=== PATIENT | female | born 1950 | race Two or more races ===

== ENCOUNTER 2017-10-02 11:28 | Inpatient (IN) | payer MEDICARE, BC ==
[~2017-10-02] VITALS: Ht 154.9 cm; Wt 59.9 kg
[~2017-10-02 11:28] MED LIST: ATEN25TA PO; CARB-103 PO; CLOM75CA2 PO; CLON0.5T23 PO; IBUP-1957 PO; LEVO25TA9 PO; LEVO75TA7 PO; METF750T2 PO; METH-359 PO
[2017-10-02] MEDS ORDERED: IV NORMAL SALINE 1000 ML BAG IV ONE (12:00)
[2017-10-02] MEDS ORDERED: ONDANSETRON 4 MG/2 ML VIAL IV ONE (12:15)
[2017-10-02] MEDS ORDERED: ONDANSETRON 4 MG/2 ML VIAL ONE (12:15)
[2017-10-02] MEDS ORDERED: METF500T6 PO ×2 (12:56)
[2017-10-02 13:08] LABS: BASOPHILS % (AUTO) 0.2 % (0.0-2.0); EOSINOPHILS # (AUTO) 0.1 K/uL (0.0-0.7); EOSINOPHILS % (AUTO) 1.2 % (0.0-7.0); HEMATOCRIT 30.3 % (31.2-41.9); HEMOGLOBIN 10.1 g/dL (10.9-14.3); LYMPHOCYTES # (AUTO) 0.9 K/uL (20.0-40.0); LYMPHOCYTES % (AUTO) 10.6 % (20.5-51.5); MEAN CORPUSCULAR HEMOGLOBIN 30.7 uug (24.7-32.8); MEAN CORPUSCULAR HGB CONC 33 g/dL (32.3-35.6); MEAN CORPUSCULAR VOLUME 92.4 fL (75.5-95.3); MONOCYTES # (AUTO) 0.6 K/uL (2.0-10.0); MONOCYTES % (AUTO) 7.2 % (0.0-11.0); NEUTROPHILS # (AUTO) 6.8 K/uL (1.8-8.9); NEUTROPHILS % (AUTO) 80.8 % (38.5-71.5); PLATELET COUNT (AUTO) 217 K/uL (179-408); RED BLOOD CELL COUNT(AUTO) 3.28 MIL/uL (3.63-4.92); WHITE BLOOD COUNT (AUTO) 8.5 K/uL (3.8-11.8)
[2017-10-02 13:22] LABS: CREATININE 1.3 mg/dL (0.6-1.3); POTASSIUM 4.2 mmol/L (3.5-5.1)
[2017-10-02 13:35] LABS: BILIRUBIN,DIRECT 0.1 mg/dL (0.0-0.2); BILIRUBIN,TOTAL 0.2 mg/dL (0.2-1.0)
[2017-10-02 13:59] LABS: THYROID STIMULATING HORMONE 0.551 mIU/mL (0.358-3.740)
[2017-10-02 14:24] LABS: *BILIRUBIN,URIN NEGATIVE (NEGATIVE); *BLOOD, URINE NEGATIVE (NEGATIVE); *CLARITY,URINE CLEAR (CLEAR); *COLOR,URINE YELLOW (YELLOW); *KETONES,URINE NEGATIVE (NEGATIVE); *PROTEIN,URINE NEGATIVE (NEGATIVE); *UROBILINOGEN,URINE 0.2 E.U./dl (NORMAL); LEUKOCYTE ESTERASE ,URINE TRACE (NEGATIVE); NITRITE, URINE NEGATIVE (NEGATIVE); UGLUCOSE NEGATIVE (NEGATIVE)
[2017-10-02 14:39] LABS: BACTERIA,URINE FEW /HPF (NONE SEEN); RBC,URINE 0-3 /HPF (0-3); SQUAMOUS EPITHELIAL CELL,UR MODERATE /HPF (NONE SEEN); WBC,URINE 0-3 /HPF (0-3)
[2017-10-02] MEDS ORDERED: LITH150C PO (14:57)
[2017-10-02] MEDS ORDERED: CARB200T PO (14:57)
[2017-10-02] MEDS ORDERED: METH10TA4 PO (14:57)
[2017-10-02] MEDS ORDERED: GUAN1TAB2 PO (14:57)
[2017-10-02] MEDS ORDERED: ASPIRIN 325 MG TABLET PO ONE (15:00)
[2017-10-02] MEDS ORDERED: ASPIRIN 325 MG TABLET ONE (15:59)
[2017-10-02 16:59] VITALS: BP 109/69
[2017-10-02] MEDS ORDERED: MAGNESIUM HYDROXIDE 30 ML LIQUID UDC PO PRN (19:45)
[2017-10-02] MEDS ORDERED: DEXTROSE 50% 50 ML DISP.SYRIN IV PRN (19:45)
[2017-10-02] MEDS ORDERED: ONDANSETRON 4 MG/2 ML VIAL IV PRN (19:45)
[2017-10-02] MEDS ORDERED: MORPHINE SULFATE 4 MG/1 ML DISP.SYRIN IV PRN (19:45)
[2017-10-02] MEDS ORDERED: ACETAMINOPHEN 325 MG TABLET PO PRN (19:45)
[2017-10-02] MEDS ORDERED: CLOMIPRAMINE HCL PO SCH (21:00)
[2017-10-02 21:27] VITALS: BP 124/71
[2017-10-02] MEDS: BLOOD SUGAR DIAGNOSTIC 1 EACH STRIP VI SCH (21:51)
[2017-10-02] MEDS: INSULIN REGULAR, HUMAN 300 UNIT/3 ML VIAL SQ PRN (21:52)
[2017-10-02] MEDS ORDERED: TEMAZEPAM 15 MG CAPSULE PO PRN (22:30)
[2017-10-03 00:40] VITALS: BP 109/49
[2017-10-03 04:00] VITALS: BP 97/53
[2017-10-03] MEDS: BLOOD SUGAR DIAGNOSTIC 1 EACH STRIP VI SCH ×3 (06:36→16:30)
[2017-10-03] MEDS ORDERED: LEVOTHYROXINE SODIUM 75 MCG TABLET PO SCH (07:08)
[2017-10-03] MEDS ORDERED: LEVOTHYROXINE SODIUM 25 MCG TABLET PO SCH (07:09)
[2017-10-03 07:20] LABS: BASOPHILS % (AUTO) 0.6 % (0.0-2.0); EOSINOPHILS # (AUTO) 0.3 K/uL (0.0-0.7); EOSINOPHILS % (AUTO) 4.6 % (0.0-7.0); HEMATOCRIT 29.1 % (31.2-41.9); HEMOGLOBIN 9.7 g/dL (10.9-14.3); LYMPHOCYTES # (AUTO) 1.7 K/uL (20.0-40.0); LYMPHOCYTES % (AUTO) 28.1 % (20.5-51.5); MEAN CORPUSCULAR HEMOGLOBIN 30.8 uug (24.7-32.8); MEAN CORPUSCULAR HGB CONC 33 g/dL (32.3-35.6); MEAN CORPUSCULAR VOLUME 92.7 fL (75.5-95.3); MONOCYTES # (AUTO) 0.7 K/uL (2.0-10.0); MONOCYTES % (AUTO) 10.8 % (0.0-11.0); NEUTROPHILS # (AUTO) 3.4 K/uL (1.8-8.9); NEUTROPHILS % (AUTO) 55.9 % (38.5-71.5); PLATELET COUNT (AUTO) 199 K/uL (179-408); RED BLOOD CELL COUNT(AUTO) 3.14 MIL/uL (3.63-4.92)
[2017-10-03 07:24] LABS: WHITE BLOOD COUNT (AUTO) 6.1 K/uL (3.8-11.8)
[2017-10-03] MEDS ORDERED: PANTOPRAZOLE SODIUM 40 MG TABLET.DR PO SCH (07:30)
[2017-10-03 07:55] LABS: BILIRUBIN,TOTAL 0.2 mg/dL (0.2-1.0); CREATININE 1.1 mg/dL (0.6-1.3); MAGNESIUM 2.1 mg/dL (1.8-2.4); PHOSPHOROUS 3.8 mg/dL (2.5-4.9); POTASSIUM 4.7 mmol/L (3.5-5.1); TOTAL PROTEIN, SERUM 6.3 g/dL (6.4-8.2)
[2017-10-03] MEDS ORDERED: LITHIUM CARBONATE 300 MG TABLET PO SCH (09:00)
[2017-10-03 10:36] LABS: *OCCULT BLOOD STOOL NEGATIVE (NEGATIVE)
[2017-10-03 11:09] VITALS: BP 116/59
[2017-10-03] MEDS ORDERED: CARBAMAZEPINE 200 MG TABLET PO SCH (11:32)
[2017-10-03] MEDS: INSULIN REGULAR, HUMAN 300 UNIT/3 ML VIAL SQ PRN (13:35)
[2017-10-03 15:52] VITALS: BP 114/58
[2017-10-03] MEDS ORDERED: ASPI-605 PO (17:36)
[2017-10-03] MEDS ORDERED: SIMV10TA2 PO (17:36)
[2017-10-04] MEDS ORDERED: CARBAMAZEPINE 200 MG TABLET PO SCH (09:00)
== END 2017-10-03 17:30 | disposition home health service (06) | DRG 91 ==
LOC: ER 11:30 → TELE 16:35 → MED 10-03 11:40
PROVIDERS: ADMIT Internal Medicine; ATTEND Internal Medicine
DX: G92 Toxic encephalopathy (principal); N17.0 Acute kidney failure with tubular necrosis; M48.02 Spinal stenosis, cervical region; D63.8 Anemia in other chronic diseases classified elsewhere; E11.9 Type 2 diabetes mellitus without complications; E03.9 Hypothyroidism, unspecified; G45.4 Transient global amnesia; Y92.009 Unspecified place in unspecified non-institutional (private) residence as the place of occurrence of the external cause; T43.505A Adverse effect of unspecified antipsychotics and neuroleptics, initial encounter; E78.5 Hyperlipidemia, unspecified; Z87.891 Personal history of nicotine dependence; Z79.899 Other long term (current) drug therapy; Z79.84 Long term (current) use of oral hypoglycemic drugs; F31.9 Bipolar disorder, unspecified; I10 Essential (primary) hypertension
CPT/HCPCS: 36415; 70030-TC; 70450; 71045; 83550; 83605; 83735; 84100; 84443; 85025; 85730; 87040; 87086; 93005; A4663; J1815; J2405; J7030

== ENCOUNTER 2019-08-27 17:26 | Emergency (ER) | payer MEDICARE, BC ==
[~2019-08-27] VITALS: Ht 154.9 cm; Wt 54.4 kg
[~2019-08-27 17:26] MED LIST changes: +ASPI-605 PO; -ATEN25TA PO; -CARB-103 PO; +CARB200T PO; +GUAN1TAB2 PO; -IBUP-1957 PO; +LITH150C PO; +METF-440 PO; -METF750T2 PO; -METH-359 PO; +METH10TA4 PO; +SIMV10TA2 PO
--- NOTE | 2019-08-27 19:00 | NUR ---
Patient in room, A/Ox4. Speech is clear, speaks in complete sentences. No acute neuro deficits. Patient came for c/o left back pain with bruising noted inferior to scapula. ROM limited but denies any numbness/tingling in extremity. Respiratoyr even and unlabored, no cough no sob. No cardiovascular distress, denies any syncopal episodes. Roommate at bedside accompanying patient, bed in lowest position, sr upx2, call light within reach. Fall precautions implemented per protocol.
--- NOTE | 2019-08-27 19:17 | NUR ---
ERMD at bedside for MSE
--- NOTE | 2019-08-27 19:28 | NUR ---
XRAY at bedside
--- NOTE | 2019-08-27 19:57 | NUR ---
Patient discharged to home in stable conditon. Written and verbal after care instructions given. Patient verbalizes understanding of instructions. Patient ambulated with stable gait.
[2019-08-27 20:00] VITALS: BP 120/71
== END 2019-08-27 20:01 | disposition home or self-care (01) ==
LOC: ER 17:34
DX: S22.42XA Multiple fractures of ribs, left side, initial encounter for closed fracture (principal); I10 Essential (primary) hypertension; E78.5 Hyperlipidemia, unspecified; E11.9 Type 2 diabetes mellitus without complications; E03.9 Hypothyroidism, unspecified; F32.9 Major depressive disorder, single episode, unspecified; F41.9 Anxiety disorder, unspecified; Z79.82 Long term (current) use of aspirin; Z79.899 Other long term (current) drug therapy; W22.8XXA Striking against or struck by other objects, initial encounter; Y93.89 Activity, other specified; Y92.89 Other specified places as the place of occurrence of the external cause; Y99.8 Other external cause status
CPT/HCPCS: 71101; A4663

== ENCOUNTER 2022-01-13 15:02 | Emergency (ER) | payer MEDICARE, BC ==
[~2022-01-13] VITALS: Ht 154.9 cm; Wt 59.0 kg
[2022-01-13] MEDS ORDERED: HYDROCODONE/APAP 5-325MG TABLET PO ONE (15:15)
[2022-01-13] MEDS ORDERED: HYDROCODONE/APAP 5-325MG TABLET ONE (15:22)
--- NOTE | 2022-01-13 15:28 | NUR ---
PT IS IN ROOM #1B. DR BENTLEY EVALUATED THE PT.
--- NOTE | 2022-01-13 16:44 | NUR ---
PT WAS D/C'd TO HOME. D/C INSTRUCTIONS GIVEN TO THE PT BY DR BENTLEY.
[2022-01-13 16:45] VITALS: BP 131/78
== END 2022-01-13 17:10 | disposition home or self-care (01) ==
LOC: ER 15:02
DX: T25.122A Burn of first degree of left foot, initial encounter (principal); T25.121A Burn of first degree of right foot, initial encounter; X12.XXXA Contact with other hot fluids, initial encounter; Y92.89 Other specified places as the place of occurrence of the external cause; E11.9 Type 2 diabetes mellitus without complications; E78.5 Hyperlipidemia, unspecified; I10 Essential (primary) hypertension; F31.9 Bipolar disorder, unspecified; Z79.84 Long term (current) use of oral hypoglycemic drugs; Z79.899 Other long term (current) drug therapy
CPT/HCPCS: A4663

== ENCOUNTER 2022-02-26 14:24 | Emergency (ER) | payer MEDICARE, BC ==
[~2022-02-26] VITALS: Ht 152.4 cm; Wt 59.0 kg
--- NOTE | 2022-02-26 14:40 | NUR ---
MD at bedside for evaluation
[2022-02-26 14:54] LABS: HEMATOCRIT 37.9 % (31.2-41.9); MEAN CORPUSCULAR HEMOGLOBIN 30.6 uug (24.7-32.8); PLATELET COUNT (AUTO) 269 K/uL (179-408)
[2022-02-26 15:18] LABS: *BLOOD, URINE NEGATIVE (NEGATIVE); *CLARITY,URINE CLEAR (CLEAR); *COLOR,URINE YELLOW (YELLOW); *KETONES,URINE TRACE (NEGATIVE); *UROBILINOGEN,URINE 0.2 E.U./dl (NORMAL); LEUKOCYTE ESTERASE ,URINE NEGATIVE (NEGATIVE); NITRITE, URINE NEGATIVE (NEGATIVE); PH,URINE 5.5 (5.0-8.0)
[2022-02-26 15:37] LABS: *BILIRUBIN,URIN 1+ (NEGATIVE); UGLUCOSE 2+ (NEGATIVE)
[2022-02-26 15:39] LABS: ALKALINE PHOSPHATASE 61 U/L (50-136); ASPARTATE AMINOTRANSFERASE 23 U/L (15-37); BILIRUBIN,DIRECT 0.1 mg/dL (0.0-0.2); BILIRUBIN,TOTAL 0.3 mg/dL (0.2-1.0); CARBON DIOXIDE 21 mmol/L (21-32); CHLORIDE 103 mmol/L (98-107); CREATININE 1.8 mg/dL (0.6-1.3); GLUCOSE 173 mg/dL (74-106); TOTAL PROTEIN, SERUM 7.8 g/dL (6.4-8.2); UREA NITROGEN, BLOOD 38 mg/dL (7-18)
[2022-02-26 15:44] LABS: BACTERIA,URINE FEW /HPF (NONE SEEN); RBC,URINE 0-3 /HPF (0-3); WBC,URINE 0-3 /HPF (0-3)
[2022-02-26 15:45] LABS: SQUAMOUS EPITHELIAL CELL,UR FEW /HPF (NONE SEEN)
[2022-02-26 15:47] LABS: THYROID STIMULATING HORMONE 1.214 mIU/mL (0.358-3.740)
[2022-02-26 15:48] LABS: ALANINE AMINOTRANSFERASE < 6 U/L (14-59)
[2022-02-26 16:07] VITALS: BP 126/89
--- NOTE | 2022-02-26 16:07 | NUR ---
Patient discharged to home in stable condition. Written and verbal after care instructions given. Patient verbalizes understanding of instructions. Stressed follow up or return to ER for worsening s/s.
== END 2022-02-26 16:07 | disposition home or self-care (01) ==
LOC: ER 14:24
DX: E86.0 Dehydration (principal); N17.9 Acute kidney failure, unspecified; F31.9 Bipolar disorder, unspecified; F41.9 Anxiety disorder, unspecified; E78.5 Hyperlipidemia, unspecified; I10 Essential (primary) hypertension; E11.9 Type 2 diabetes mellitus without complications; Z79.84 Long term (current) use of oral hypoglycemic drugs; Z79.899 Other long term (current) drug therapy; R00.0 Tachycardia, unspecified
CPT/HCPCS: 36415; 70030-TC; 84443; 85025; 93005; A4663

== ENCOUNTER 2022-03-04 14:57 | Inpatient (IN) | payer MEDICARE, BC ==
[~2022-03-04] VITALS: Ht 154.9 cm; Wt 49.9 kg
[2022-03-04] MEDS ORDERED: METF-440 PO (15:24)
[2022-03-04] MEDS ORDERED: NICOTINE (15:29)
[2022-03-04] MEDS ORDERED: PROG100C15 PO (15:29)
[2022-03-04] MEDS ORDERED: ATOR10TA PO (15:29)
[2022-03-04] MEDS ORDERED: RISP0.5T5 PO (15:29)
[2022-03-04 16:26] LABS: HEMATOCRIT 38.4 % (31.2-41.9); MEAN CORPUSCULAR HEMOGLOBIN 30.3 uug (24.7-32.8); MEAN CORPUSCULAR VOLUME 91.6 fL (75.5-95.3); PLATELET COUNT (AUTO) 270 K/uL (179-408)
[2022-03-04 16:39] LABS: CARBON DIOXIDE 21 mmol/L (21-32); CHLORIDE 104 mmol/L (98-107); CREATININE 1.6 mg/dL (0.6-1.3); GLUCOSE 151 mg/dL (74-106); POTASSIUM 3.9 mmol/L (3.5-5.1); UREA NITROGEN, BLOOD 41 mg/dL (7-18)
[2022-03-04 16:45] LABS: ALANINE AMINOTRANSFERASE 40 U/L (14-59); ALKALINE PHOSPHATASE 63 U/L (50-136); ASPARTATE AMINOTRANSFERASE 32 U/L (15-37); BILIRUBIN,TOTAL 0.4 mg/dL (0.2-1.0); TOTAL PROTEIN, SERUM 8.1 g/dL (6.4-8.2)
[2022-03-04 17:06] LABS: *BILIRUBIN,URIN NEGATIVE (NEGATIVE); *BLOOD, URINE 2+ (NEGATIVE); *CLARITY,URINE CLEAR (CLEAR); *COLOR,URINE YELLOW (YELLOW); *KETONES,URINE 1+ (NEGATIVE); *UROBILINOGEN,URINE 0.2 E.U./dl (NORMAL); LEUKOCYTE ESTERASE ,URINE TRACE (NEGATIVE); NITRITE, URINE NEGATIVE (NEGATIVE); UGLUCOSE TRACE (NEGATIVE)
[2022-03-04 17:15] LABS: *AMPHETAMINE, URINE NEGATIVE (NEGATIVE); *CANNABINOID, URINE NEGATIVE (NEGATIVE); *COCCAINE, URINE NEGATIVE (NEGATIVE); *OPIATE, URINE NEGATIVE (NEGATIVE); *PHENCYCLIDINE SCREEN,URINE NEGATIVE (NEGATIVE)
--- NOTE | 2022-03-04 17:18 | NUR ---
Called elizabeth [facility] pt, l/m.
[2022-03-04 17:45] LABS: ABG BASE EXCESS -7.1 mmol/L; ABG HCO3 16.7 mmol/L; ABG PCO2 29.5 mmHg (35.0-45.0); ABG PH 7.372 (7.350-7.450); ABG SITE RIGHT BRACHIAL; COHb 0.2 % (0.5-1.5); MetHb 0.1 % (0.0-1.5); O2Hb 86.8 % (94.0-97.0); VENT MODE ROOM AIR
--- NOTE | 2022-03-04 19:43 | NUR ---
Carla rodriguez called and will accept the pt for admission
--- NOTE | 2022-03-04 20:18 | NUR ---
pt with 1 to one sitter.
--- NOTE | 2022-03-04 20:23 | NUR ---
rajesh from crisis team is here to see the pt.
[2022-03-04 21:52] LABS: BACTERIA,URINE FEW /HPF (NONE SEEN); SQUAMOUS EPITHELIAL CELL,UR MODERATE /HPF (NONE SEEN)
--- NOTE | 2022-03-04 21:59 | NUR ---
received a call from housekeeping/laundry supervisor that this pt will go to room 137 b [facility].
[2022-03-04] MEDS ORDERED: QUETIAPINE FUMARATE 25 MG TABLET PO ONE (22:45)
[2022-03-04] MEDS ORDERED: QUETIAPINE FUMARATE 25 MG TABLET ONE (22:46)
[2022-03-05] MEDS ORDERED: ACETAMINOPHEN 325 MG TABLET PO PRN (00:45)
[2022-03-05] MEDS ORDERED: MAG HYDROX/AL HYDROX/SIMETH 30 ML LIQUID UDC PO PRN (00:45)
[2022-03-05] MEDS ORDERED: ZOLPIDEM 5 MG TABLET PO PRN (00:45)
[2022-03-05] MEDS ORDERED: BLOOD SUGAR DIAGNOSTIC 1 EACH STRIP VI ONE (00:45)
[2022-03-05] MEDS ORDERED: MAGNESIUM HYDROXIDE 30 ML LIQUID UDC PO PRN (00:45)
--- NOTE | 2022-03-05 00:53 | NUR ---
pt transported to mental health unit room 137a. JANEE Heard in unit to accept the pt. pt transported via w/c with all belongings.
[2022-03-05 00:59] VITALS: BP 132/90
--- NOTE | 2022-03-05 02:35 | NUR ---
GPS: Admitted to unit earlier a 71 yr.old female to be under the care of /ADRIANA Kelley. Pt.is on a 72 hour hold for GD. Pt.has not been taking her meds, unable to care for her own basic needs,per hold. Pt. is partially oriented. Poor insight to present situation. Paranoid,suspicious,uncooperative during admission process. Body check done by female staff. Unit rules/policies explained. Pt's rights booklet and advisement given. Safe environment provided. Will continue to monitor behavior.
[2022-03-05 07:30] VITALS: BP 161/81
[2022-03-05] MEDS: NICOTINE 21 MG/24HR PATCH TD SCH (08:50)
[2022-03-05] MEDS: FLUOXETINE HCL 20 MG CAPSULE PO SCH (10:41)
[2022-03-05] MEDS: CARBAMAZEPINE 200 MG TABLET PO SCH ×2 (10:41→20:47)
[2022-03-05] MEDS: risperiDONE 0.25 MG TABLET PO SCH ×2 (10:41→17:17)
--- NOTE | 2022-03-05 15:02 | NUR ---
AXEL Initial Discharge Note: Pt currently resides at [address] [place] [address] ([phone]). Per Yuri, her discharge location depends on her treatment plan and progress prior to discharge. Yuri stated he is agreeable to a [place] [facility] [place] facility if the pt medically requires it. Yuri stated he is also a medical doctor and will follow-up with the pt's care. AXEL will continue to work with pt, family and MD to ensure a safe and proper discharge plan.
[2022-03-05 16:50] VITALS: BP 150/84
--- NOTE | 2022-03-05 17:00 | NUR ---
Gps/Life Guard- Stayed in the activity room during the day, interacting with her peers. Compliant with her routine meds.attended her group therapy .Denies any discomfort., making her simple needs known
[2022-03-05] MEDS: LITHIUM CARBONATE 150 MG CAPSULE PO SCH (17:17)
[2022-03-05 20:56] VITALS: BP 139/79
--- NOTE | 2022-03-06 06:55 | NUR ---
GPS: Pt.slept for 3 hrs only last night. Refused sleeping pill when offered numerous times by staff. Remains paranoid,suspicious and guarded. Re-assured and re-directed. Poor insight to present situation. Fall precautions observed.
[2022-03-06 07:30] VITALS: BP 152/82
[2022-03-06 08:24] LABS: BILIRUBIN,TOTAL 0.4 mg/dL (0.2-1.0); CREATININE 1.6 mg/dL (0.6-1.3); POTASSIUM 3.8 mmol/L (3.5-5.1); TOTAL PROTEIN, SERUM 8.4 g/dL (6.4-8.2)
[2022-03-06] MEDS: risperiDONE 0.25 MG TABLET PO SCH ×2 (09:34→17:01)
[2022-03-06] MEDS: CARBAMAZEPINE 200 MG TABLET PO SCH ×2 (09:34→20:41)
[2022-03-06] MEDS: NICOTINE 21 MG/24HR PATCH TD SCH (09:35)
[2022-03-06] MEDS: LITHIUM CARBONATE 150 MG CAPSULE PO SCH ×2 (09:39→17:01)
[2022-03-06] MEDS: FLUOXETINE HCL 20 MG CAPSULE PO SCH (09:39)
[2022-03-06 16:00] VITALS: BP 130/74
[2022-03-06 20:20] VITALS: BP 106/68
[2022-03-06] MEDS: CEphaleXIN 500 MG CAPSULE PO SCH (20:50)
[2022-03-07 07:30] VITALS: BP 102/63
[2022-03-07] MEDS: NICOTINE 21 MG/24HR PATCH TD SCH (08:20)
[2022-03-07] MEDS: FLUOXETINE HCL 20 MG CAPSULE PO SCH (08:20)
[2022-03-07] MEDS: CEphaleXIN 500 MG CAPSULE PO SCH ×2 (08:20→20:14)
[2022-03-07] MEDS: CARBAMAZEPINE 200 MG TABLET PO SCH ×2 (08:20→20:14)
[2022-03-07] MEDS: LITHIUM CARBONATE 150 MG CAPSULE PO SCH ×2 (08:22→17:10)
[2022-03-07] MEDS: risperiDONE 0.25 MG TABLET PO SCH (08:24)
[2022-03-07] MEDS: OMEGA-3 FATTY ACIDS/FISH OIL CAPSULE PO SCH (10:57)
--- NOTE | 2022-03-07 11:00 | NUR ---
Gps/Edge Inker Uppers-Patient was able to talked to Yuri(KATIE). Also requesting to talk to Psychiatrist. reviewed medications as requested.
--- NOTE | 2022-03-07 12:29 | NUR ---
GPS: PSYCHIATRIST ISSUED 5250 HOLD FOR [facility] HEARING WITH PROBABLE CAUSE OF GRAVE DISABILITY ONLY. PT GIVEN A COPY AND EXPLAINED ABOUT IT. PT UNDERSTOOD TEACHING PROVIDED.
[2022-03-07 16:00] VITALS: BP 150/94
[2022-03-07] MEDS ORDERED: risperiDONE 0.25 MG TABLET PO SCH (17:00)
[2022-03-07] MEDS: risperiDONE 0.5 MG TABLET PO SCH (17:10)
[2022-03-07 20:00] VITALS: BP 104/68
--- NOTE | 2022-03-08 05:53 | NUR ---
GPS: Remain calm and cooperative. no agitation noted at this time. resting in bed comfortably. slept 7.30 hrs through the night.
[2022-03-08 08:06] VITALS: BP 120/80
[2022-03-08] MEDS: CEphaleXIN 500 MG CAPSULE PO SCH ×2 (09:19→20:32)
[2022-03-08] MEDS: FLUOXETINE HCL 20 MG CAPSULE PO SCH (09:19)
[2022-03-08] MEDS: NICOTINE 21 MG/24HR PATCH TD SCH (09:19)
[2022-03-08] MEDS: risperiDONE 0.5 MG TABLET PO SCH ×2 (09:19→16:21)
[2022-03-08] MEDS: LITHIUM CARBONATE 150 MG CAPSULE PO SCH ×2 (09:19→16:22)
[2022-03-08] MEDS: OMEGA-3 FATTY ACIDS/FISH OIL CAPSULE PO SCH (09:19)
[2022-03-08] MEDS: CARBAMAZEPINE 200 MG TABLET PO SCH ×2 (09:19→20:32)
--- NOTE | 2022-03-08 15:53 | NUR ---
GPS NOTES: received patient in the hallway, A&Ox1, patient noted to be frequently asking questions about her discharge from here and noted to be forgetful. Patient is pleasant and redirectable. Compliant with medications and care. Poor insight and judgment. Minimal participation during activity. Good appetite. Remains calm during shift. Closely monitoring observed
[2022-03-08 16:11] VITALS: BP 123/78
[2022-03-08] MEDS: GLUCERNA SHAKE 237 ML CAN PO SCH (16:21)
[2022-03-08 19:53] VITALS: BP 134/74
--- NOTE | 2022-03-08 20:00 | NUR ---
Patient at the dining area socializing with other patient. Patient calm and cooperative with care at this time, no complain of pain, cont to monitor.
--- NOTE | 2022-03-09 04:51 | NUR ---
Patient asleep but arousable, stayed in bed most the night, calm and cooperative with care, cont to monitor.
[2022-03-09] MEDS: OMEGA-3 FATTY ACIDS/FISH OIL CAPSULE PO SCH (09:00)
[2022-03-09] MEDS: FLUOXETINE HCL 20 MG CAPSULE PO SCH (09:01)
[2022-03-09] MEDS: CARBAMAZEPINE 200 MG TABLET PO SCH ×2 (09:01→20:38)
[2022-03-09] MEDS: CEphaleXIN 500 MG CAPSULE PO SCH ×2 (09:01→20:38)
[2022-03-09] MEDS: NICOTINE 21 MG/24HR PATCH TD SCH (09:02)
[2022-03-09] MEDS: LITHIUM CARBONATE 150 MG CAPSULE PO SCH ×2 (09:04→17:17)
[2022-03-09] MEDS: risperiDONE 0.5 MG TABLET PO SCH ×2 (09:04→17:17)
[2022-03-09] MEDS: GLUCERNA SHAKE 237 ML CAN PO SCH ×2 (09:05→17:17)
[2022-03-09 10:04] VITALS: BP 140/98
[2022-03-09] MEDS ORDERED: LEVO100T PO (11:53)
[2022-03-09] MEDS ORDERED: ATOR20TA PO (12:03)
--- NOTE | 2022-03-09 12:09 | NUR ---
Firearms Report: Sales Service Manager completed and submitted a DOJ firearms report for 5150 grave disability certifications. A copy of report has been placed in patient chart.
[2022-03-09] MEDS ORDERED: METF750T46 PO (12:17)
[2022-03-09] MEDS ORDERED: METF-440 PO (12:19)
[2022-03-09] MEDS ORDERED: DEXTROSE 50% 50 ML DISP.SYRIN IV PRN (12:30)
[2022-03-09 16:17] VITALS: BP 122/71
[2022-03-09] MEDS: BLOOD SUGAR DIAGNOSTIC 1 EACH STRIP VI SCH ×2 (16:30→20:30)
[2022-03-09] MEDS ORDERED: METFORMIN HCL 500 MG TABLET PO SCH ×2 (17:00→18:00)
[2022-03-09] MEDS ORDERED: ATORVASTATIN 10 MG TABLET PO SCH (18:00)
[2022-03-09 19:53] VITALS: BP 141/88
[2022-03-09] MEDS: INSULIN REGULAR, HUMAN 300 UNIT/3 ML VIAL SQ PRN (20:35)
[2022-03-09] MEDS: ATORVASTATIN 20 MG TABLET PO SCH (20:38)
--- NOTE | 2022-03-10 00:23 | NUR ---
GPS: Pt.awake at this time. Refused Ambien 5mg PO for insomnia despite numerous attempts by staff. Quiet environment provided to facilitate sleep. Safety emphasized. Re-assured prn.
[2022-03-10] MEDS: BLOOD SUGAR DIAGNOSTIC 1 EACH STRIP VI SCH ×4 (06:24→20:22)
[2022-03-10] MEDS: LEVOTHYROXINE SODIUM 100 MCG TABLET PO SCH (06:25)
--- NOTE | 2022-03-10 06:45 | NUR ---
GPS: Pt.slept for only 3.30 last night. Refused sleeping pill despite numerous attempts by staff. Remains paranoid,suspicious and guarded. Blood sugar earlier was 281mg/dl. Showered as requested. Needs attended. Will continue to monitor.
[2022-03-10 07:30] VITALS: BP 129/69
[2022-03-10] MEDS: risperiDONE 0.5 MG TABLET PO SCH ×2 (08:45→17:43)
[2022-03-10] MEDS: OMEGA-3 FATTY ACIDS/FISH OIL CAPSULE PO SCH (08:45)
[2022-03-10] MEDS: CARBAMAZEPINE 200 MG TABLET PO SCH ×2 (08:45→20:16)
[2022-03-10] MEDS: LITHIUM CARBONATE 150 MG CAPSULE PO SCH ×2 (08:45→17:43)
[2022-03-10] MEDS: GLUCERNA SHAKE 237 ML CAN PO SCH ×2 (08:45→17:43)
[2022-03-10] MEDS: FLUOXETINE HCL 20 MG CAPSULE PO SCH (08:45)
[2022-03-10] MEDS: NICOTINE 21 MG/24HR PATCH TD SCH (08:45)
[2022-03-10] MEDS: CEphaleXIN 500 MG CAPSULE PO SCH ×2 (08:45→20:16)
[2022-03-10] MEDS: INSULIN REGULAR, HUMAN 300 UNIT/3 ML VIAL SQ PRN ×4 (08:46→20:26)
[2022-03-10] MEDS ORDERED: LEVOTHYROXINE SODIUM 75 MCG TABLET PO SCH (09:00)
--- NOTE | 2022-03-10 09:28 | NUR ---
GPS: PT RECEIVED IN ROOM AND WENT TO DINING ROOM FOR BREAKFAST WITH PEERS AND ENJOYS WATCHING TV. ENCOURAGED PT MORE TO BE OUT OF ROOM. COMPLIANT WITH CARE AND MEDS. DENIES PAIN OR DISCOMFORT. GIVEN HUMULIN R SQ AND NICOTINE PATCH.
[2022-03-10 15:25] VITALS: BP 154/79
[2022-03-10 19:55] VITALS: BP 155/76
[2022-03-10] MEDS: ATORVASTATIN 20 MG TABLET PO SCH (20:16)
--- NOTE | 2022-03-10 21:23 | NUR ---
GPS: Pt.was compliant with her bedtime meds.and blood sugar check. Remains guarded and suspicious. Re-assured and re-directed prn. Interacts with certain peers. Safety emphasized. Will continue to monitor.
--- NOTE | 2022-03-10 23:22 | NUR ---
GPS: Pt.still awake at this time. Has difficulty falling asleep. Refused sleeping pill despite numerous attempts by staff. Re-assured prn. Quiet environment provided to facilitate sleep. Will continue to monitor.
[2022-03-11] MEDS: LEVOTHYROXINE SODIUM 100 MCG TABLET PO SCH (06:13)
[2022-03-11] MEDS: BLOOD SUGAR DIAGNOSTIC 1 EACH STRIP VI SCH ×4 (06:24→21:08)
[2022-03-11 07:30] VITALS: BP 151/83
[2022-03-11] MEDS: risperiDONE 0.5 MG TABLET PO SCH ×2 (09:12→17:44)
[2022-03-11] MEDS: CARBAMAZEPINE 200 MG TABLET PO SCH ×2 (09:12→21:12)
[2022-03-11] MEDS: CEphaleXIN 500 MG CAPSULE PO SCH (09:12)
[2022-03-11] MEDS: OMEGA-3 FATTY ACIDS/FISH OIL CAPSULE PO SCH (09:12)
[2022-03-11] MEDS: GLUCERNA SHAKE 237 ML CAN PO SCH ×3 (09:13→17:45)
[2022-03-11] MEDS: LITHIUM CARBONATE 150 MG CAPSULE PO SCH ×2 (09:13→17:44)
[2022-03-11] MEDS: FLUOXETINE HCL 10 MG CAPSULE PO SCH (09:14)
[2022-03-11] MEDS: NICOTINE 21 MG/24HR PATCH TD SCH (09:15)
[2022-03-11] MEDS: INSULIN REGULAR, HUMAN 300 UNIT/3 ML VIAL SQ PRN ×3 (12:52→21:11)
[2022-03-11 16:00] VITALS: BP 148/87
--- NOTE | 2022-03-11 18:36 | NUR ---
GPS: PT PARTICIPATED WITH [address] HEARING TODAY VIA WE[employer]EX VIDEO. PROBABLE CAUSE WILL REMAIN ON GRAVE DISABILITY ONLY. PT ACCUCHECK DONE AND RBS WAS 221 AT 1630. SLIDING SCALE OF HUMULIN R WAS ADMINISTERED AND TOLERATED WELL BY PT. PT WITH EPISODE OF CONFUSION AND FORGETFULNESS, AND BEING PARANOID. FIXATED OF WHEN SHE WILL BE DISCHARGE. PT COMPLIANT WITH CARE AND MEDS.
[2022-03-11 20:18] VITALS: BP 120/65
[2022-03-11] MEDS ORDERED: TEMAZEPAM 7.5 MG CAPSULE PO PRN (21:00)
[2022-03-11] MEDS: ATORVASTATIN 20 MG TABLET PO SCH (21:12)
[2022-03-11] MEDS: TRAZODONE 50 MG TABLET PO SCH (21:12)
[2022-03-11] MEDS: MELATONIN 3 MG TABLET PO SCH (21:12)
[2022-03-12] MEDS: LEVOTHYROXINE SODIUM 100 MCG TABLET PO SCH (06:24)
[2022-03-12] MEDS: BLOOD SUGAR DIAGNOSTIC 1 EACH STRIP VI SCH ×4 (06:32→20:44)
[2022-03-12 07:30] VITALS: BP 150/75
[2022-03-12] MEDS: CARBAMAZEPINE 200 MG TABLET PO SCH ×2 (09:01→20:37)
[2022-03-12] MEDS: risperiDONE 0.5 MG TABLET PO SCH ×2 (09:01→17:43)
[2022-03-12] MEDS: LITHIUM CARBONATE 150 MG CAPSULE PO SCH ×2 (09:02→17:44)
[2022-03-12] MEDS: OMEGA-3 FATTY ACIDS/FISH OIL CAPSULE PO SCH (09:02)
[2022-03-12] MEDS: NICOTINE 21 MG/24HR PATCH TD SCH (09:02)
[2022-03-12] MEDS: FLUOXETINE HCL 10 MG CAPSULE PO SCH (09:02)
[2022-03-12] MEDS: INSULIN REGULAR, HUMAN 300 UNIT/3 ML VIAL SQ PRN ×3 (09:37→20:49)
[2022-03-12] MEDS: GLUCERNA SHAKE 237 ML CAN PO SCH ×2 (13:18→17:44)
[2022-03-12 15:03] VITALS: BP 148/66
--- NOTE | 2022-03-12 15:40 | NUR ---
AXEL Family Contact: AXEL spoke with pt's DPOA Yuri ([phone]) who expressed his concerns with pt's lithium levels. AXEL verbalized to Yuri that per MD and Director, we watch for lithium toxicity. Yuri is aware and agreeable and asked for new lab work. AXEL confirmed that MD will order new labs. Yuri stated if pt requires 24 hour care, he is agreeable to SNF for continuation of care. AXEL stated she will follow-up with further updates as available.
--- NOTE | 2022-03-12 18:20 | NUR ---
GPS: RECEIVED PT AMBULATING ALONG THE HALLWAY EARLY THIS SHIFT. PT SEEMS CONFUSED. RE-ORIENTED TO PLACE AND SITUATION. DOMENICO, THE DPOA ASKING FOR INFORMATION ABOUT PT LABS LIKE LITHIUM LEVEL AND ASKING TO FAX OVER LAB RESULTS. DRUM MAKER NOT COMFORTABLE GIVING SUCH INFO. REQUESTED DOMENICO TO TRY TO CALL TOMORROW AND INQUIRE TO
[2022-03-12] MEDS: MELATONIN 3 MG TABLET PO SCH (20:37)
[2022-03-12] MEDS: TRAZODONE 50 MG TABLET PO SCH (20:37)
[2022-03-12] MEDS: ATORVASTATIN 20 MG TABLET PO SCH (20:37)
[2022-03-12 21:11] VITALS: BP 158/75
--- NOTE | 2022-03-12 21:54 | NUR ---
received patient ambulating in her room and in the hallway.AAOx1-2 confused at times. No acute distress noted. Tolerated po meds well without difficulty. No behavioral issues noted. No signs of agitation or any restlessness. Patient cooperative and able to follow commands. Continent of bowel and bladder. Accucheck @ 2100 was 262 with coverage given. Will monitor patient.
[2022-03-13] MEDS: LEVOTHYROXINE SODIUM 75 MCG TABLET PO SCH (06:10)
[2022-03-13] MEDS: BLOOD SUGAR DIAGNOSTIC 1 EACH STRIP VI SCH ×4 (06:30→20:25)
[2022-03-13 07:43] VITALS: BP 146/83
[2022-03-13] MEDS: NICOTINE 21 MG/24HR PATCH TD SCH (09:21)
[2022-03-13] MEDS: risperiDONE 0.5 MG TABLET PO SCH (09:21)
[2022-03-13] MEDS: FLUOXETINE HCL 10 MG CAPSULE PO SCH (09:22)
[2022-03-13] MEDS: OMEGA-3 FATTY ACIDS/FISH OIL CAPSULE PO SCH (09:22)
[2022-03-13] MEDS: CARBAMAZEPINE 200 MG TABLET PO SCH ×2 (09:22→20:25)
[2022-03-13] MEDS: LITHIUM CARBONATE 150 MG CAPSULE PO SCH ×2 (09:22→17:36)
[2022-03-13] MEDS: GLUCERNA SHAKE 237 ML CAN PO SCH ×2 (09:23→14:24)
[2022-03-13] MEDS: INSULIN REGULAR, HUMAN 300 UNIT/3 ML VIAL SQ PRN ×4 (09:52→20:30)
--- NOTE | 2022-03-13 14:57 | NUR ---
AXEL Family Contact: AXEL contacted pt's KATIE Yuri ([phone]) and left a voicemail for a call back to discuss and finalize pt's discharge details for Wednesday.
--- NOTE | 2022-03-13 15:46 | NUR ---
Received patient sleeping in her room. A/O X 2 to person. Pt. is depressed, isolative, withdrawn, anxious at times, suspicious, confused. Pt. states "When is going to be my exam? I need to be prepared". Blood glucose is 327, 8 units of regular insulin is given per sliding scale. Patient ambulates without assistance. Pt. is encourage to vent feelings and emotions. Fall and safety precautions implemented.l
--- NOTE | 2022-03-13 15:50 | NUR ---
AXEL Family Contact: AXEL contacted pt's KATIE Yuri ([phone]) again and this writer technical publications was not able to leave a voicemail for a call back to discuss and finalize pt's discharge details for Wednesday due to full voicemail box.
[2022-03-13 16:30] VITALS: BP 155/81
[2022-03-13 19:47] VITALS: BP 158/89
[2022-03-13] MEDS: LORAZEPAM 1 MG TABLET PO PRN (20:25)
[2022-03-13] MEDS: ATORVASTATIN 20 MG TABLET PO SCH (20:25)
[2022-03-13] MEDS: MELATONIN 3 MG TABLET PO SCH (20:25)
[2022-03-13] MEDS: risperiDONE 1 MG TABLET PO SCH (20:27)
[2022-03-13] MEDS ORDERED: TRAZODONE 50 MG TABLET PO SCH (21:00)
[2022-03-13] MEDS ORDERED: TRAZODONE 100 MG TABLET PO SCH (21:00)
[2022-03-13] MEDS ORDERED: TRAZODONE 100 MG TABLET PO ONE (21:00)
--- NOTE | 2022-03-14 03:40 | NUR ---
Received patient in the [place]ard, hyper focused on her 14 day hold paper. Over and over stating " I have to memorize this paper" and " Take me out of here ". Being as the patient is very forgetful, this automotive service writer and other staff have been providing reorientation and reassurance to the patient multiple times during the night. The patient is paranoid and confused and has been up frequently , pacing the halls and going into the wrong room. She refuses to try to sleep, and is again at this time just staring at the hold paper. Many times needing distraction and redirection. Poor sleep hours are noted during this hospital stay despite PRN medications. Safety Stratiges are in place and will encourage the patient to sleep or to relax at least and attempt to teach relaxation techniques.
--- NOTE | 2022-03-14 04:01 | NUR ---
Pharmacy Note : Patients Trazodone was held d/t the warning on the Emar not to administer at this time. EKG scheduled for today. Will endorse to next shift for clarification.
[2022-03-14] MEDS: LORAZEPAM 1 MG TABLET PO PRN (04:28)
--- NOTE | 2022-03-14 06:18 | NUR ---
Blood sugar is high d/t the patient was found in her room eating and drinking sugary juices. Will wait and re check within the hour and treat as needed.
[2022-03-14] MEDS: LEVOTHYROXINE SODIUM 75 MCG TABLET PO SCH (06:21)
[2022-03-14 06:53] VITALS: BP 107/55
[2022-03-14] MEDS: BLOOD SUGAR DIAGNOSTIC 1 EACH STRIP VI SCH ×4 (08:25→20:22)
[2022-03-14] MEDS: CARBAMAZEPINE 200 MG TABLET PO SCH ×2 (08:27→20:35)
[2022-03-14] MEDS: LITHIUM CARBONATE 150 MG CAPSULE PO SCH ×2 (08:27→17:45)
[2022-03-14] MEDS: risperiDONE 0.5 MG TABLET PO SCH (08:27)
[2022-03-14] MEDS: OMEGA-3 FATTY ACIDS/FISH OIL CAPSULE PO SCH (08:27)
[2022-03-14] MEDS: FLUOXETINE HCL 10 MG CAPSULE PO SCH (08:28)
[2022-03-14] MEDS: NICOTINE 21 MG/24HR PATCH TD SCH (08:28)
[2022-03-14] MEDS: INSULIN REGULAR, HUMAN 300 UNIT/3 ML VIAL SQ PRN ×3 (08:32→18:37)
[2022-03-14] MEDS: GLUCERNA SHAKE 237 ML CAN PO SCH ×2 (10:18→14:00)
--- NOTE | 2022-03-14 16:05 | NUR ---
Received patient sleeping in her room. A/O X 1 to person. Pt. is confused, forgetful, disoriented, demanding, attention seeker. Pt. states "When Am I leaving?" "Where Am I at?" "Why today is Wednesday, not Wednesday?" "Can I ask you a question: Where should I write in this paper, is after 5150 number?" Blood glucose is 307, 8 units of regular insulin is given per sliding scale. Pt. is encourage to verbalize concerns. Fall and safety precautions implemented.l
[2022-03-14 16:53] VITALS: BP 113/64
[2022-03-14 20:21] VITALS: BP 131/63
[2022-03-14] MEDS: MELATONIN 3 MG TABLET PO SCH (20:35)
[2022-03-14] MEDS: TRAZODONE 100 MG TABLET PO SCH (20:35)
[2022-03-14] MEDS: ATORVASTATIN 20 MG TABLET PO SCH (20:35)
[2022-03-14] MEDS: risperiDONE 1 MG TABLET PO SCH (20:35)
--- NOTE | 2022-03-15 04:42 | NUR ---
Patient remains forgetful, confuse at times. Needs constant re-directions. BS=97, offered fluid snack, good appetite. Patient slept well/ Frequent monitoring observed.
[2022-03-15] MEDS: LEVOTHYROXINE SODIUM 75 MCG TABLET PO SCH (06:22)
[2022-03-15] MEDS: BLOOD SUGAR DIAGNOSTIC 1 EACH STRIP VI SCH ×4 (06:31→20:22)
[2022-03-15 07:42] VITALS: BP 109/53
[2022-03-15] MEDS: OMEGA-3 FATTY ACIDS/FISH OIL CAPSULE PO SCH (08:53)
[2022-03-15] MEDS: risperiDONE 0.5 MG TABLET PO SCH (08:53)
[2022-03-15] MEDS: CARBAMAZEPINE 200 MG TABLET PO SCH ×2 (08:54→20:18)
[2022-03-15] MEDS: FLUOXETINE HCL 10 MG CAPSULE PO SCH (08:54)
[2022-03-15] MEDS: NICOTINE 21 MG/24HR PATCH TD SCH (08:54)
[2022-03-15] MEDS: LITHIUM CARBONATE 150 MG CAPSULE PO SCH ×2 (08:54→17:10)
[2022-03-15] MEDS: INSULIN REGULAR, HUMAN 300 UNIT/3 ML VIAL SQ PRN ×3 (08:58→20:25)
[2022-03-15] MEDS: GLUCERNA SHAKE 237 ML CAN PO SCH ×2 (10:04→14:06)
[2022-03-15 15:26] VITALS: BP 105/48
[2022-03-15 15:38] VITALS: BP 105/48
--- NOTE | 2022-03-15 15:45 | NUR ---
Received patient sleeping in her room. A/O X 1 to person. Pt. is confused, forgetful, disorganized, disoriented "I have dentures and I'm not suppose to eat" "What is insulin for?" Blood glucose is 286, 6 units of regular insulin is given per sliding scale. Pt. is encourage to vent feelings. Covid test done and negative for discharge plan tomorrow. Fall and safety precautions implemented.l
[2022-03-15 19:28] VITALS: BP 116/44
[2022-03-15] MEDS: risperiDONE 1 MG TABLET PO SCH (20:18)
[2022-03-15] MEDS: TRAZODONE 100 MG TABLET PO SCH (20:18)
[2022-03-15] MEDS: ATORVASTATIN 20 MG TABLET PO SCH (20:18)
[2022-03-15] MEDS: MELATONIN 3 MG TABLET PO SCH (20:18)
--- NOTE | 2022-03-16 04:28 | NUR ---
Patient fixated on getting a shower. Up and down all night. A shower was provided. Patient is anxious about being discharged. Reassurance and reorientation provided. Safety Stratiges are in place. No acute distress. Sleep hours 4.15.
[2022-03-16] MEDS: LEVOTHYROXINE SODIUM 75 MCG TABLET PO SCH (06:21)
[2022-03-16] MEDS: BLOOD SUGAR DIAGNOSTIC 1 EACH STRIP VI SCH ×4 (06:22→21:35)
[2022-03-16 07:25] VITALS: BP 118/56
[2022-03-16] MEDS: risperiDONE 0.5 MG TABLET PO SCH (08:55)
[2022-03-16] MEDS: CARBAMAZEPINE 200 MG TABLET PO SCH ×2 (08:55→21:25)
[2022-03-16] MEDS: NICOTINE 21 MG/24HR PATCH TD SCH (08:55)
[2022-03-16] MEDS: FLUOXETINE HCL 10 MG CAPSULE PO SCH (08:55)
[2022-03-16] MEDS: OMEGA-3 FATTY ACIDS/FISH OIL CAPSULE PO SCH (08:55)
[2022-03-16] MEDS: LITHIUM CARBONATE 150 MG CAPSULE PO SCH ×2 (08:55→16:40)
--- NOTE | 2022-03-16 09:48 | NUR ---
AXEL Family Contact: AXEL contacted pt's DPOA Yuri ([phone]) and discussed Dr. Marshall's referral suggestion for the pt to [facility] located at [address] [place] [phone] ([phone]). AXEL stated per Dr. Marshall, pt's current plan is a short term SNF for continuation of care until pt is ready to return home. AXEL stated to Yuri pt is agreeable with Dr. Marhsall and this machine sign writer with the current discharge plan. Yuri stated he is very agreeable with [facility] as it is in [place] where the pt's family lives. AXEL stated this machine sign writer will inform Yuri with discharge updates once available. Yuri is aware and agreeable.
[2022-03-16] MEDS: INSULIN REGULAR, HUMAN 300 UNIT/3 ML VIAL SQ PRN ×3 (09:50→21:40)
[2022-03-16] MEDS: GLUCERNA SHAKE 237 ML CAN PO SCH ×2 (10:05→13:04)
--- NOTE | 2022-03-16 14:30 | NUR ---
SW Family Contact: SW contacted pt's DPOA Yuri ([phone]) and left a voicemail for a call back to discuss pt's acceptance to [facility] upon discharge and the additional facilities Yuri provided the SW with.
--- NOTE | 2022-03-16 14:32 | NUR ---
SW Family Contact: Yuri left a voicemail for this SW to contact additional facilities for the pt such as, [place] [address] [facility][phone]), [facility][phone][facility] and [facility] ([phone]). Yuri also stated in the voicemail for the pt to receive a neuro consult if possible due to the pt's confusion. Yuri also expressed his concerns with Nicolas hannah and would like to further discuss with the SW.
--- NOTE | 2022-03-16 14:37 | NUR ---
AXEL Family Contact: AXEL contacted pt's DPOA Yuri ([phone]) and discussed Yuri's concerns in the voicemail. AXEL expressed further knowledge regarding the facility and that the pt's current psychiatrist, Dr. Marshall will continue to follow the pt at [facility]. Yuri expressed he is grateful for the positive feedback for [facility]. AXEL stated this proposal writer will refer pt to the facilities Yuri provided as well and continue with a discharge plan of Yuri's choice of location. Yuri is agreeable.
--- NOTE | 2022-03-16 14:44 | NUR ---
GPS: Nursing Notes: Thought Disorder: Patient is awake and responding to he name, cooperative with nursing care, compliant with her medications, A/Ox2-3, participating in therapeutic groups with prompting, isolative and withdrawn in her room at time, following staff directions, forgetful at times, but following staff directions, denies SI, verbally jeremías for safety, continue to monitor for safety, ambulatory, self care, redirected and reoriented during shift, unable to formulate a viable plan for self care, continue with treatment plan .
[2022-03-16 16:09] VITALS: BP 146/66
[2022-03-16 19:00] VITALS: BP 153/69
[2022-03-16] MEDS: MELATONIN 3 MG TABLET PO SCH (21:25)
[2022-03-16] MEDS: TRAZODONE 100 MG TABLET PO SCH (21:25)
[2022-03-16] MEDS: ATORVASTATIN 20 MG TABLET PO SCH (21:25)
[2022-03-16] MEDS: risperiDONE 1 MG TABLET PO SCH (21:25)
[2022-03-17] MEDS: BLOOD SUGAR DIAGNOSTIC 1 EACH STRIP VI SCH ×4 (05:42→20:13)
--- NOTE | 2022-03-17 05:52 | NUR ---
PATIENT AWAKE ALERT 2 TO 3, STAYED IN HER ROOM MOST OF THE NIGHT, COOPERATIVE WITH MEDICATIONS AND CARE, PREFER TO STAY ALONE DOES NOT INTERACT WITH OTHER PATIENT, BS STABLE, CALM CONT TO MONITOR.
[2022-03-17] MEDS: LEVOTHYROXINE SODIUM 75 MCG TABLET PO SCH (06:03)
[2022-03-17 08:00] VITALS: BP 126/69
[2022-03-17] MEDS: OMEGA-3 FATTY ACIDS/FISH OIL CAPSULE PO SCH (08:43)
[2022-03-17] MEDS: LITHIUM CARBONATE 150 MG CAPSULE PO SCH ×2 (08:43→16:41)
[2022-03-17] MEDS: FLUOXETINE HCL 10 MG CAPSULE PO SCH (08:43)
[2022-03-17] MEDS: CARBAMAZEPINE 200 MG TABLET PO SCH ×2 (08:43→20:13)
[2022-03-17] MEDS: NICOTINE 21 MG/24HR PATCH TD SCH (08:43)
[2022-03-17] MEDS: risperiDONE 0.5 MG TABLET PO SCH (08:51)
[2022-03-17] MEDS: GLUCERNA SHAKE 237 ML CAN PO SCH ×2 (09:03→14:00)
--- NOTE | 2022-03-17 09:37 | NUR ---
SW Family Contact: SW spoke with pt's KATIE Welch ([phone]) and the pt present during the call and discussed Yuri's concerns regarding [facility] SNF and pt's concerns for her discharge plan. SW informed Yuri that she has contacted all 3 facilities that Yuri had recommended to this SW and neither facility has responded yet. Yuri is aware that SW will continue to contact and AXEL stated that [facility] will remain as a plan b safe discharge plan in the event that the suggested facilities cannot accept the pt. Yuri stated he understands. Pt's and Yuri's concerns and questions were addressed by this SW.
--- NOTE | 2022-03-17 12:25 | NUR ---
GPS: Nursing Notes: Thought Disorder: Patient is awake and responding to her name, cooperative with nursing care, forgetful at times, disorganized, A/Ox2-3, following staff directions, unable to formulate a viable plan for self care, needs prompting to participate in therapeutic groups, believes that she is leaving today, redirected and reoriented during shift, continue to monitor for safety, continue to be compliant with her medications, continue with treatment plan.
--- NOTE | 2022-03-17 13:52 | NUR ---
SNF Referral: SW faxed patient's referral packet including: History and Physical, Consultation, Progress Notes, Medication List and Labs to the following facilities for review and possible prison placement: [facility] located at [address] [place] [address] per DPOA request and AXEL spoke with Kelin in admissions. F: [phone]. AXEL stated to Kelin pt has an anticipated discharge date of 03/18/22 or 03/19/22. Kelin is aware and stated she will review and contact this SW with an update today.
[2022-03-17 16:00] VITALS: BP 103/46
--- NOTE | 2022-03-17 16:07 | NUR ---
Discharge update: [facility] [address] [facility] ([phone][facility] contacted this sports writer and stated that they cannot accept the pt due to no bed availability. Aleksandra from [facility] ([phone]) contacted this sports writer and informed that someone from admissions will contact this sports writer tomorrow regarding discharge information.
[2022-03-17] MEDS: INSULIN REGULAR, HUMAN 300 UNIT/3 ML VIAL SQ PRN ×2 (16:38→20:15)
[2022-03-17 19:54] VITALS: BP 136/62
[2022-03-17] MEDS: risperiDONE 1 MG TABLET PO SCH (20:13)
[2022-03-17] MEDS: TRAZODONE 100 MG TABLET PO SCH (20:13)
[2022-03-17] MEDS: MELATONIN 3 MG TABLET PO SCH (20:13)
[2022-03-17] MEDS: LORAZEPAM 1 MG TABLET PO PRN (20:14)
[2022-03-17] MEDS: ATORVASTATIN 20 MG TABLET PO SCH (20:14)
--- NOTE | 2022-03-18 05:07 | NUR ---
Received patient at the start of the shift, wondering around the hallway. Confused. The patient was medication compliant but anxious. Reassurance and reorientation provided. Patient will be discharged when placement available. No acute issues. Safety Stratiges are in place. Sleep hours were 6.45.
[2022-03-18] MEDS: LEVOTHYROXINE SODIUM 75 MCG TABLET PO SCH (06:01)
[2022-03-18] MEDS: BLOOD SUGAR DIAGNOSTIC 1 EACH STRIP VI SCH ×4 (06:16→20:49)
[2022-03-18 07:30] VITALS: BP_SYST 124; BP_SYST 136; BP_DIAS 63; BP_DIAS 76
[2022-03-18] MEDS: risperiDONE 0.5 MG TABLET PO SCH (08:13)
[2022-03-18] MEDS: FLUOXETINE HCL 10 MG CAPSULE PO SCH (08:13)
[2022-03-18] MEDS: OMEGA-3 FATTY ACIDS/FISH OIL CAPSULE PO SCH (08:13)
[2022-03-18] MEDS: LITHIUM CARBONATE 150 MG CAPSULE PO SCH ×2 (08:13→16:49)
[2022-03-18] MEDS: NICOTINE 21 MG/24HR PATCH TD SCH (08:14)
[2022-03-18] MEDS: CARBAMAZEPINE 200 MG TABLET PO SCH ×2 (08:14→20:25)
[2022-03-18] MEDS: GLUCERNA SHAKE 237 ML CAN PO SCH ×2 (10:15→12:18)
[2022-03-18] MEDS: INSULIN REGULAR, HUMAN 300 UNIT/3 ML VIAL SQ PRN ×3 (11:59→20:58)
--- NOTE | 2022-03-18 14:55 | NUR ---
The patient remains confused, forgetful and disoriented. Continuously standing at the nurses station, asking same questions over and over. Resistant to redirection . This patient is argumentative and demanding. This freelance copywriter has been unable to engage in any meaningful conversation with the patient . Safety stratiges are in place and monitoring closely for increase in agitation .
[2022-03-18 16:03] VITALS: BP 119/61
[2022-03-18] MEDS: LORAZEPAM 1 MG TABLET PO PRN (16:53)
[2022-03-18 19:53] VITALS: BP 119/58
[2022-03-18] MEDS: MELATONIN 3 MG TABLET PO SCH (20:25)
[2022-03-18] MEDS: ATORVASTATIN 20 MG TABLET PO SCH (20:25)
[2022-03-18] MEDS: TRAZODONE 100 MG TABLET PO SCH (20:25)
[2022-03-18] MEDS: risperiDONE 1 MG TABLET PO SCH (20:28)
[2022-03-19] MEDS: BLOOD SUGAR DIAGNOSTIC 1 EACH STRIP VI SCH (06:02)
[2022-03-19] MEDS: LEVOTHYROXINE SODIUM 75 MCG TABLET PO SCH (06:02)
--- NOTE | 2022-03-19 06:04 | NUR ---
Patient stayed in room, but came out to the station asking for the list of her medications, exkplain to the patient that on the day of discharge she will get all the copies of all her medications, but unable to follow, asking the same question again, blood sugar check done, cont to monitor.
[2022-03-19 07:30] VITALS: BP 153/78
[2022-03-19] MEDS: CARBAMAZEPINE 200 MG TABLET PO SCH (08:26)
[2022-03-19] MEDS: OMEGA-3 FATTY ACIDS/FISH OIL CAPSULE PO SCH (08:26)
[2022-03-19] MEDS: risperiDONE 0.5 MG TABLET PO SCH (08:26)
[2022-03-19] MEDS: NICOTINE 21 MG/24HR PATCH TD SCH (08:27)
[2022-03-19] MEDS: LITHIUM CARBONATE 150 MG CAPSULE PO SCH (08:27)
[2022-03-19] MEDS: FLUOXETINE HCL 10 MG CAPSULE PO SCH (08:27)
[2022-03-19] MEDS: INSULIN REGULAR, HUMAN 300 UNIT/3 ML VIAL SQ PRN (08:50)
--- NOTE | 2022-03-19 09:53 | NUR ---
AXEL Discharge Note: Pt will be discharged to [place] [address] ([phone]) via Ambulance transportation at 11AM. AXEL contacted pts family/DPOA Yuri ([phone]) and informed him of discharge details. Yuri is aware and agreeable. Pt is alert and oriented x2. Pt is aware and agreeable with her discharge plan to [facility]. Pt denies any suicidal or homicidal ideation. Pt will follow-up with her outpatient Psychiatrist, Dr. Mick Kwan. Pt will also follow-up at the facility with Psychiatrist, Dr. Marshall and Fiscal Specialist, Dr. Mccormick. Pt presents with calm mood and congruent affect. PHARMACY: [facility] ([phone]) [address] [address].
[2022-03-19] MEDS: GLUCERNA SHAKE 237 ML CAN PO SCH (10:00)
--- NOTE | 2022-03-19 10:56 | NUR ---
Gps/Nursing -Called Orlin Pleitez. report was given to Ruby Ibanez. All belonings and valuables was given back to patient. Well informed of her discharge plan , pick pulling machine operator time arranged at 1100 via [facility]. Yuri ([facility]) was well informed of her discharge.
--- NOTE | 2022-03-19 11:36 | NUR ---
Gps/Drywall Professional- Discharged to [facility]. via ambulance. pt. in good spirit with no new complaints noted
== END 2022-03-19 11:42 | DRG 885 ==
LOC: ER 14:57 → GPS 03-05 00:26
PROVIDERS: ADMIT Psychiatry & Neurology Psychiatry; ATTEND Nurse Practitioner Acute Care
DX: F31.5 Bipolar disorder, current episode depressed, severe, with psychotic features (principal); N17.0 Acute kidney failure with tubular necrosis; N18.9 Chronic kidney disease, unspecified; G93.41 Metabolic encephalopathy; E03.9 Hypothyroidism, unspecified; D63.8 Anemia in other chronic diseases classified elsewhere; E11.22 Type 2 diabetes mellitus with diabetic chronic kidney disease; E78.5 Hyperlipidemia, unspecified; Z79.82 Long term (current) use of aspirin; Z79.890 Hormone replacement therapy; Z79.899 Other long term (current) drug therapy; Z87.891 Personal history of nicotine dependence; F41.9 Anxiety disorder, unspecified; I12.9 Hypertensive chronic kidney disease with stage 1 through stage 4 chronic kidney disease, or unspecified chronic kidney disease; F39 Unspecified mood [affective] disorder; F29 Unspecified psychosis not due to a substance or known physiological condition; E05.90 Thyrotoxicosis, unspecified without thyrotoxic crisis or storm; R00.0 Tachycardia, unspecified; Z20.822 Contact with and (suspected) exposure to COVID-19; G31.9 Degenerative disease of nervous system, unspecified; Z79.84 Long term (current) use of oral hypoglycemic drugs
CPT/HCPCS: 36415; 36600; 70030-TC; 84443; 85025; 87086; 93005; 97161; J1815

== ENCOUNTER 2022-05-21 16:19 | Inpatient (IN) | payer MEDICARE, BC ==
[~2022-05-21] VITALS: Ht 157.5 cm; Wt 52.2 kg
[~2022-05-21 16:19] MED LIST changes: -ASPI-605 PO; +ATOR20TA PO; -CARB200T PO; -CLOM75CA2 PO; -CLON0.5T23 PO; +LEVO100T PO; -LEVO25TA9 PO; -LEVO75TA7 PO; -LITH150C PO; -METH10TA4 PO; +NICOTINE; +PROG100C15 PO; -SIMV10TA2 PO
[2022-05-21] MEDS ORDERED: OLANZAPINE 10 MG VIAL IM ONE ×2 (16:45→16:46)
--- NOTE | 2022-05-21 16:45 | NUR ---
Patient is awake, alert, confuse, talking loudly, and minimally directable. Patient is trying to leave the ER department. Security assistance@[email or web address].
--- NOTE | 2022-05-21 17:14 | NUR ---
Spoke to Pt's POA, Yuri Carrera @ [phone]. Yuri stated he can be called for any questions.
--- NOTE | 2022-05-21 17:15 | NUR ---
Per Pt's POA who is a phsician, pt has hallucinations when she takes Trazadone. Requested to have trazadone as an allergy.
[2022-05-21] MEDS ORDERED: RISP0.5T5 PO (17:23)
[2022-05-21] MEDS ORDERED: FLUO10CA26 PO (17:23)
[2022-05-21] MEDS ORDERED: CARB200T PO (17:23)
[2022-05-21] MEDS ORDERED: OMEG10002 PO (17:23)
[2022-05-21] MEDS ORDERED: RISP1TAB7 PO (17:23)
[2022-05-21] MEDS ORDERED: LITH150C PO (17:23)
[2022-05-21] MEDS ORDERED: NICO-671 TP (17:23)
[2022-05-21] MEDS ORDERED: TRAZ-257 PO (17:23)
[2022-05-21] MEDS ORDERED: ACET-3315 PO (17:23)
[2022-05-21] MEDS ORDERED: INSU100V28 SQ (17:23)
[2022-05-21] MEDS ORDERED: MELA3TAB41 PO (17:23)
[2022-05-21] MEDS ORDERED: [UNRECOGNIZED DRUG - OTHER] (17:23)
[2022-05-21] MEDS ORDERED: LORAZEPAM 2 MG/1 ML VIAL IM ONE ×2 (17:30→20:45)
[2022-05-21] MEDS ORDERED: LORAZEPAM 2 MG/1 ML VIAL ONE ×2 (17:34→20:48)
--- NOTE | 2022-05-21 17:44 | NUR ---
Nursing hot strip mill supervisor, Bibi notified of pt's 1 to 1 order, no sitters avail at this time.
[2022-05-21 17:46] LABS: HEMATOCRIT 35.1 % (31.2-41.9); MEAN CORPUSCULAR VOLUME 92.9 fL (75.5-95.3); PLATELET COUNT (AUTO) 315 K/uL (179-408)
[2022-05-21 17:54] LABS: CARBON DIOXIDE 27 mmol/L (21-32); CHLORIDE 101 mmol/L (98-107); CREATININE 1.7 mg/dL (0.6-1.3); ETHANOL < 3 MG/DL (0-0); GLUCOSE 187 mg/dL (74-106); POTASSIUM 4.4 mmol/L (3.5-5.1); UREA NITROGEN, BLOOD 32 mg/dL (7-18)
[2022-05-21 17:59] LABS: ACETAMINOPHEN < 2.0 ug/mL (10-30); ALANINE AMINOTRANSFERASE 39 U/L (14-59); ALKALINE PHOSPHATASE 66 U/L (50-136); ASPARTATE AMINOTRANSFERASE 15 U/L (15-37); BILIRUBIN,DIRECT < 0.1 mg/dL (0.0-0.2); BILIRUBIN,TOTAL 0.2 mg/dL (0.2-1.0); TOTAL PROTEIN, SERUM 7.8 g/dL (6.4-8.2)
--- NOTE | 2022-05-21 18:00 | NUR ---
Pt is medically cleared by Dr Valenzuela. Pavithra ELDER, placed a call to [facility] for psych eval. ETA 1-2 hours.
--- NOTE | 2022-05-21 18:20 | NUR ---
Dinner tray provided, pt ate w/ moderate appettite.
--- NOTE | 2022-05-21 18:34 | NUR ---
Pt is calmer at this time, and less confuse, speaking loudly.
--- NOTE | 2022-05-21 19:05 | NUR ---
Hands off report given to Melissa Beltran.
--- NOTE | 2022-05-21 21:17 | NUR ---
Report given to Mikhail Maureen bingham
[2022-05-21 21:30] LABS: *BILIRUBIN,URIN NEGATIVE (NEGATIVE); *BLOOD, URINE NEGATIVE (NEGATIVE); *CLARITY,URINE CLEAR (CLEAR); *COLOR,URINE YELLOW (YELLOW); *KETONES,URINE NEGATIVE (NEGATIVE); *UROBILINOGEN,URINE 0.2 E.U./dl (NORMAL); LEUKOCYTE ESTERASE ,URINE TRACE (NEGATIVE); NITRITE, URINE NEGATIVE (NEGATIVE); PH,URINE 6.5 (5.0-8.0); UGLUCOSE NEGATIVE (NEGATIVE)
--- NOTE | 2022-05-21 21:45 | NUR ---
Transfered to [facility]HU via gurny with no distress noted.
[2022-05-21 21:47] LABS: BACTERIA,URINE FEW /HPF (NONE SEEN); RBC,URINE 0-3 /HPF (0-3); SQUAMOUS EPITHELIAL CELL,UR FEW /HPF (NONE SEEN); WBC,URINE 0-3 /HPF (0-3)
[2022-05-21 21:50] LABS: *AMPHETAMINE, URINE NEGATIVE (NEGATIVE); *CANNABINOID, URINE NEGATIVE (NEGATIVE); *COCCAINE, URINE NEGATIVE (NEGATIVE); *OPIATE, URINE NEGATIVE (NEGATIVE); *PHENCYCLIDINE SCREEN,URINE NEGATIVE (NEGATIVE)
[2022-05-21] MEDS ORDERED: MAGNESIUM HYDROXIDE 30 ML LIQUID UDC PO PRN (22:00)
[2022-05-21] MEDS ORDERED: MAG HYDROX/AL HYDROX/SIMETH 30 ML LIQUID UDC PO PRN (22:00)
[2022-05-21] MEDS ORDERED: BLOOD SUGAR DIAGNOSTIC 1 EACH STRIP VI ONE (22:00)
[2022-05-21 22:07] VITALS: BP 121/66
[2022-05-21] MEDS: ACETAMINOPHEN 325 MG TABLET PO PRN (22:17)
[2022-05-21] MEDS: ZOLPIDEM 5 MG TABLET PO PRN (22:18)
--- NOTE | 2022-05-21 23:22 | NUR ---
GPS: Admitted to unit earlier a 71 yr.old female under the care of /Sachin DESIGN SPECIALIST. Pt.is on a 72 hour hold for DTO/GD. Pt.came from [facility] were she started screaming,pushing and attacking staff and unable to be re-directed,per hold. Pt.when arrived to the unit was uncooperative,argumentative,confused,disoriented and needing frequent re-direction from staff. No striking out behavior noted. Has unsteady gait.Fall precautions initiated. Skin assessment done,personal belongings inventoried. Pt's rights handbook along with advisement given. Needs attended. Will continue to monitor.
[2022-05-21] MEDS ORDERED: ACETAMINOPHEN 325 MG TABLET PO PRN (23:45)
[2022-05-22] MEDS: LORAZEPAM 1 MG TABLET PO PRN (02:29)
[2022-05-22] MEDS: LEVOTHYROXINE SODIUM 75 MCG TABLET PO SCH (06:49)
--- NOTE | 2022-05-22 06:54 | NUR ---
GPS: Pt.slept 5.45 last night. Woke up once during the night for bathroom purposes. Confused,disoriented with poor insight to present situation. Re-directed and re-assured prn. Fall precautions observed. Up on toño-chair near nurses station for safety. Will continue to monitor.
[2022-05-22 07:30] VITALS: BP 91/46
--- NOTE | 2022-05-22 08:14 | NUR ---
Gps/High Reach Operator- Remains up in her toño-chair by the Nurses station during the initial rounds , patient asleep, in no sign of any distress, arousable when her name was called
[2022-05-22] MEDS ORDERED: NICOTINE 7 MG/24HR PATCH TD SCH (09:00)
[2022-05-22] MEDS ORDERED: NICOTINE 21 MG/24HR PATCH TD SCH (09:00)
[2022-05-22] MEDS ORDERED: NICOTINE 14 MG/24HR PATCH TD SCH (09:00)
[2022-05-22] MEDS ORDERED: CARBAMAZEPINE 200 MG TABLET PO SCH (09:00)
[2022-05-22] MEDS: FLUVOXAMINE MALEATE 50 MG TABLET PO SCH ×2 (09:43→16:41)
[2022-05-22] MEDS: OMEGA-3 FATTY ACIDS/FISH OIL CAPSULE PO SCH (09:43)
[2022-05-22] MEDS: risperiDONE 0.5 MG TABLET PO SCH ×2 (09:43→16:41)
[2022-05-22] MEDS: LITHIUM CARBONATE 150 MG CAPSULE PO SCH ×3 (09:43→16:41)
--- NOTE | 2022-05-22 10:53 | NUR ---
SW Family Contact: Pt's DPOA, Yuriantoine Ribeiro ([phone]) contacted this parts data writer and [facility] and the outcome it led to for the pt now. Yuri also expressed his concerns with pt's care at [facility]. Yuri stated he will call this parts data writer back to provide more information and discuss pt's discharge plan. Yuri is unsure if pt will return to [facility].
[2022-05-22] MEDS ORDERED: DEXTROSE 50% 50 ML DISP.SYRIN IV PRN (11:45)
[2022-05-22] MEDS: BLOOD SUGAR DIAGNOSTIC 1 EACH STRIP VI SCH ×3 (11:45→20:06)
--- NOTE | 2022-05-22 12:30 | NUR ---
Gps/Mumps Developer- Unable to check blood sugar AC lunch , r/t accu-check machine not working at this time , will re- check BS at a later time when accucheck machine available. Patient ate 100% of meal.Dr Stephenson was in to see patient was informed of the need to order sliding scale for insulin , claimed Pharmacy was called and informed the need to put patient on moderate sliding scale.
--- NOTE | 2022-05-22 16:11 | NUR ---
AXEL Initial Discharge Note: Patient currently resides at [address] [address] ([phone]). AXEL will continue to work with patient, family, and MD to ensure a safe and proper discharge plan. Pt is accepted back to [facility] per AXEL Tatum upon discharge. AXEL Tatum will continue to communicate with pt's KATIE Welch regarding pt's final discharge plan.
--- NOTE | 2022-05-22 16:16 | NUR ---
Firearms Report: Surgeon Assistant completed and submitted a DOJ firearms report for 5150 grave disability and danger to others certifications. A copy of report has been placed in patient chart.
[2022-05-22 16:43] VITALS: BP 108/60
--- NOTE | 2022-05-22 18:03 | NUR ---
Gps/Fish Bait Picker- Yuri (DPOA) called 4x today , was able to talked to Evelin (pt) twice..Yuri asking more informations about routine Psych ..medications who ordered them and who discontinued such meds. Requesting to talk to Dr Marshall, informed his gone for the day but will give him information for him to return call when he gets in tomorrow. Results of routine labs. and drug level. (lithium) was given to Yuri as requested.
[2022-05-22 19:45] VITALS: BP 100/64
[2022-05-22] MEDS: INSULIN REGULAR, HUMAN 300 UNITS/3 ML VIAL SQ PRN (20:07)
[2022-05-22] MEDS: ATORVASTATIN 20 MG TABLET PO SCH (20:41)
[2022-05-22] MEDS: MELATONIN 3 MG TABLET PO SCH (20:42)
[2022-05-22] MEDS: risperiDONE 1 MG TABLET PO SCH (20:42)
[2022-05-22] MEDS ORDERED: risperiDONE 0.5 MG TABLET PO SCH (21:00)
[2022-05-22] MEDS: ZOLPIDEM 5 MG TABLET PO PRN (21:49)
--- NOTE | 2022-05-23 03:12 | NUR ---
Received patient in a toño chair in the day room. Confused and disoriented but calm. The situation and the environment were discussed and reorientation provided frequently. The patient took her medications without any resistance and was able to let staff know when she needs to use the bathroom. Safety stratiges are in place and staff are monitoring the patient for behavior escalation. This story writer moved the patients room closer to the nurses station for increased observation.
[2022-05-23] MEDS: LEVOTHYROXINE SODIUM 75 MCG TABLET PO SCH (06:08)
[2022-05-23] MEDS: BLOOD SUGAR DIAGNOSTIC 1 EACH STRIP VI SCH ×4 (06:08→20:06)
[2022-05-23] MEDS: LORAZEPAM 1 MG TABLET PO PRN (06:10)
--- NOTE | 2022-05-23 06:13 | NUR ---
The patient up for a shower this am. Making delusional repetitive statements such as " I am so ugly. Just shoot me !" and " Where is my mother? Is she here ? ". The patient is anxious and resistant to staff providing care. Poor impulse control, patient trying to get up without assistance. Gait unsteady. Safety stratiges in place. Sleep hours were 8.00. Continuing to monitor behavior escalation and combativeness.
[2022-05-23 07:49] VITALS: BP 102/55
[2022-05-23] MEDS: LITHIUM CARBONATE 150 MG CAPSULE PO SCH ×3 (08:45→16:39)
[2022-05-23] MEDS: NICOTINE 7 MG/24HR PATCH TD SCH (08:45)
[2022-05-23] MEDS: risperiDONE 0.5 MG TABLET PO SCH ×2 (08:45→16:40)
[2022-05-23] MEDS: FLUVOXAMINE MALEATE 50 MG TABLET PO SCH ×2 (08:45→16:40)
[2022-05-23] MEDS: OMEGA-3 FATTY ACIDS/FISH OIL CAPSULE PO SCH (08:45)
[2022-05-23] MEDS: INSULIN REGULAR, HUMAN 300 UNIT/3 ML VIAL SQ PRN ×2 (08:47→11:52)
--- NOTE | 2022-05-23 12:53 | NUR ---
GPS: Nursing Notes: Thought Disorder: Patient is awake and responding to his name, cooperative with nursing care, minimal participation in therapeutic groups, believes that her boyfriend left to another state, "My boyfriend went to [facility] to study.... From there, he is going to [place] with another women..", brighter affect, interactive with staff, compliant with her medications, gets easily irritable when redirected, poor impulse control at times, unable to formulate a viable plan for self care, stated "I am here because I got sick...", continue to monitor for safety, continue with treatment plan.
[2022-05-23 16:26] VITALS: BP 167/91
[2022-05-23 20:00] VITALS: BP_SYST 157; BP_SYST 98; BP_DIAS 50; BP_DIAS 51
[2022-05-23] MEDS: ATORVASTATIN 20 MG TABLET PO SCH (20:06)
[2022-05-23] MEDS: risperiDONE 1 MG TABLET PO SCH (20:06)
[2022-05-23] MEDS: MELATONIN 3 MG TABLET PO SCH (20:07)
[2022-05-23] MEDS: INSULIN REGULAR, HUMAN 300 UNITS/3 ML VIAL SQ PRN (20:14)
[2022-05-23] MEDS: ZOLPIDEM 5 MG TABLET PO PRN (21:36)
[2022-05-24] MEDS: LEVOTHYROXINE SODIUM 75 MCG TABLET PO SCH (05:57)
[2022-05-24] MEDS: BLOOD SUGAR DIAGNOSTIC 1 EACH STRIP VI SCH ×4 (05:58→20:02)
[2022-05-24 07:41] VITALS: BP 125/57
[2022-05-24] MEDS: LITHIUM CARBONATE 150 MG CAPSULE PO SCH ×3 (08:54→16:25)
[2022-05-24] MEDS: OMEGA-3 FATTY ACIDS/FISH OIL CAPSULE PO SCH (08:54)
[2022-05-24] MEDS: risperiDONE 0.5 MG TABLET PO SCH ×2 (08:54→16:25)
[2022-05-24] MEDS: NICOTINE 7 MG/24HR PATCH TD SCH (08:54)
[2022-05-24] MEDS: FLUVOXAMINE MALEATE 50 MG TABLET PO SCH ×2 (08:54→16:25)
--- NOTE | 2022-05-24 11:28 | NUR ---
GPS: Nursing Notes: 5250 [facility] Request: Staff give a copy of 5250 to patient, Staff explained 5250. Staff informed patient that a certification review hearing will be held within four days and patient's rights advocate will call to provide assistance and preparing her for the hearing. The court has been notified of 5250 via [facility] portal on this day.
[2022-05-24] MEDS: INSULIN REGULAR, HUMAN 300 UNIT/3 ML VIAL SQ PRN (11:42)
--- NOTE | 2022-05-24 13:39 | NUR ---
GPS: Nursing Notes: Thought Disorder: Patient is awake and responding to her name, cooperative with nursing care, compliant with her medications, following staff directions, forgetful at times, A/Ox3, believes that her boyfriend left [facility] without her, no signs of aggression noted, believes that she is getting better, believes that she ready to leave, unable to formulate a viable plan for self care, continue to monitor for safety, continue with treatment plan.
[2022-05-24 16:08] VITALS: BP 92/58
[2022-05-24 19:51] VITALS: BP 115/55
[2022-05-24] MEDS: ATORVASTATIN 20 MG TABLET PO SCH (20:02)
[2022-05-24] MEDS: risperiDONE 1 MG TABLET PO SCH (20:02)
[2022-05-24] MEDS: MELATONIN 3 MG TABLET PO SCH (20:02)
[2022-05-24] MEDS: INSULIN REGULAR, HUMAN 300 UNITS/3 ML VIAL SQ PRN (20:17)
[2022-05-24] MEDS: LORAZEPAM 1 MG TABLET PO PRN (21:34)
[2022-05-24] MEDS: ZOLPIDEM 5 MG TABLET PO PRN (23:55)
[2022-05-25] MEDS: LEVOTHYROXINE SODIUM 75 MCG TABLET PO SCH (06:10)
[2022-05-25] MEDS: BLOOD SUGAR DIAGNOSTIC 1 EACH STRIP VI SCH ×4 (06:39→20:12)
--- NOTE | 2022-05-25 06:44 | NUR ---
GPS: Pt.slept poorly last night despite receiving a sleeping pill prn. Confused,forgetful and disorganized. Frequent re-direction was given. Fall precautions observed. Blood sugar checks continues.
[2022-05-25 07:29] VITALS: BP 121/63
[2022-05-25] MEDS: FLUVOXAMINE MALEATE 50 MG TABLET PO SCH ×2 (08:33→17:18)
[2022-05-25] MEDS: OMEGA-3 FATTY ACIDS/FISH OIL CAPSULE PO SCH (08:34)
[2022-05-25] MEDS: NICOTINE 7 MG/24HR PATCH TD SCH (08:34)
[2022-05-25] MEDS: LITHIUM CARBONATE 150 MG CAPSULE PO SCH ×3 (08:34→17:18)
[2022-05-25] MEDS: risperiDONE 1 MG TABLET PO SCH ×3 (08:35→20:12)
[2022-05-25] MEDS: CARBAMAZEPINE 200 MG TABLET PO SCH ×2 (08:47→20:12)
[2022-05-25] MEDS ORDERED: risperiDONE 0.5 MG TABLET PO SCH (09:00)
[2022-05-25] MEDS: NUTRISOURCE FIBER 4 GM PACKET PO SCH (11:32)
[2022-05-25] MEDS: INSULIN REGULAR, HUMAN 300 UNIT/3 ML VIAL SQ PRN ×2 (11:36→17:19)
[2022-05-25 12:03] LABS: HEMATOCRIT 31.9 % (31.2-41.9); MEAN CORPUSCULAR HEMOGLOBIN 31.8 uug (24.7-32.8); PLATELET COUNT (AUTO) 268 K/uL (179-408)
[2022-05-25 12:51] LABS: BILIRUBIN,TOTAL 0.2 mg/dL (0.2-1.0); CREATININE 1.6 mg/dL (0.6-1.3); TOTAL PROTEIN, SERUM 6.8 g/dL (6.4-8.2)
[2022-05-25 16:16] VITALS: BP 119/86
--- NOTE | 2022-05-25 16:41 | NUR ---
GPS: Nursing Notes: Thought Disorder: Patient is awake and responding to her name, cooperative with nursing care, impaired judgment, participating in therapeutic groups, A/Ox2, forgetful at times, disorganized, compliant with her medications, stated "I want to go home... I want to be with my boyfriend.. He is waiting for me... Please let go..", redirected and reoriented during shift, unable to formulate a viable plan for self care, continue to monitor for safety, depressed mood and anxious affect, continue with treatment plan.
--- NOTE | 2022-05-25 17:28 | NUR ---
GPS: Nursing Notes: Thought Disorder: Patient is awake and responding to her name, forgetful, asking staff to let her leave, stated "Please... Let me go, my boyfriend is waiting for me.. I need to go..", redirected and reoriented during shift, depressed mood and anxious affect, pacing the unit, but forgets where is her room, episodes of talking in fragment sentences, gets easily anxious when redirected, unable to formulate a viable plan for self care, continue with treatment plan.
[2022-05-25 19:54] VITALS: BP 116/66
[2022-05-25] MEDS: ATORVASTATIN 20 MG TABLET PO SCH (20:12)
[2022-05-25] MEDS: MELATONIN 3 MG TABLET PO SCH (20:15)
[2022-05-25] MEDS: INSULIN REGULAR, HUMAN 300 UNITS/3 ML VIAL SQ PRN (20:16)
[2022-05-25] MEDS: ZOLPIDEM 5 MG TABLET PO PRN (22:04)
--- NOTE | 2022-05-26 05:11 | NUR ---
Patient was anxious at the start of the shift. Disoriented, delusional and continued to ask for her "Dad". Reassurance and reorientation provided when needed. The patient gets more confused and unsteady at night. Safety stratiges are in place. Monitoring closely for falls. Medication compliant, labile moods noted. Slept well last night.
[2022-05-26] MEDS: LEVOTHYROXINE SODIUM 75 MCG TABLET PO SCH (06:27)
[2022-05-26] MEDS: BLOOD SUGAR DIAGNOSTIC 1 EACH STRIP VI SCH ×4 (06:28→21:32)
[2022-05-26 07:36] VITALS: BP 116/54
[2022-05-26] MEDS: LITHIUM CARBONATE 150 MG CAPSULE PO SCH ×3 (08:43→17:28)
[2022-05-26] MEDS: risperiDONE 1 MG TABLET PO SCH ×3 (08:43→20:34)
[2022-05-26] MEDS: OMEGA-3 FATTY ACIDS/FISH OIL CAPSULE PO SCH (08:43)
[2022-05-26] MEDS: CARBAMAZEPINE 200 MG TABLET PO SCH ×2 (08:43→20:34)
[2022-05-26] MEDS: NICOTINE 7 MG/24HR PATCH TD SCH (08:43)
[2022-05-26] MEDS: FLUVOXAMINE MALEATE 50 MG TABLET PO SCH ×2 (08:43→17:28)
[2022-05-26] MEDS: NUTRISOURCE FIBER 4 GM PACKET PO SCH (08:44)
[2022-05-26] MEDS: INSULIN REGULAR, HUMAN 300 UNIT/3 ML VIAL SQ PRN ×2 (12:21→17:31)
[2022-05-26] MEDS ORDERED: diphenhydrAMINE 50 MG/1 ML VIAL IM ONE (13:30)
[2022-05-26] MEDS ORDERED: HALOPERIDOL LACTATE 5 MG/1 ML VIAL IM ONE (13:30)
--- NOTE | 2022-05-26 14:00 | NUR ---
Patient became confused, incoherent, agitated, aggressive, combative, accusatory, striking and punching out staff three times. Psychiatrist was called and ordered Haldol 5 mg IM, Benadryl 25 mg IM. Security was called and 3 people were necessary to administer the medication, no force was needed or applied. Active listening provided. Fall and safety precautions implemented.
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
--- NOTE | 2022-05-26 16:00 | NUR ---
Patient is manic most of the time in this shift. Patient is demanding, repetitive, forgetful, anxious, angry, yelling at staff. Pt. is compliant with medications, but suspicious. Blood glucose is 150, 2 units given per sliding scale. Reality orientation provided. Fall and safety precautions implemented.
[2022-05-26 16:05] VITALS: BP 115/61
[2022-05-26 19:55] VITALS: BP 116/56
[2022-05-26] MEDS: MELATONIN 3 MG TABLET PO SCH (20:34)
[2022-05-26] MEDS: ATORVASTATIN 20 MG TABLET PO SCH (20:34)
[2022-05-26] MEDS: LORAZEPAM 1 MG TABLET PO PRN (21:29)
--- NOTE | 2022-05-26 21:30 | NUR ---
Initially Received patient in her bed sleeping but easily arousable. later, she stated walking and pacing the hallway. she was hyperverbal, with flight of ideas, manic and aggressive. she stated, "I want a shower right now, right now". "i want to see my mother, take me to see my mother". "I have bumps in my face". patient required multiple redirection and reassurance. quite environment was provide, she was able to take all her QHS medications and Ativan 1mg PO PRN was also given. She was given PO fluids and snacks. Accu check was 174, 3 units regular insulin sling scale were given. her V/S are stable. she is reassured for her safety. safety and fall precautions are in place. will continue to monitor Closely
[2022-05-26] MEDS: INSULIN REGULAR, HUMAN 300 UNITS/3 ML VIAL SQ PRN (21:39)
[2022-05-26] MEDS: ZOLPIDEM 5 MG TABLET PO PRN (22:48)
--- NOTE | 2022-05-26 22:50 | NUR ---
patient noted less agitated less anxious but continue hyperverbal. She is also having tactile hallucination. she stated, "i don't want to go to my room, I feel someone is touching me". patient is reassured for her safety. Ambien 10 mg PO PRN was given. will continue to monitor closely.
--- NOTE | 2022-05-27 06:15 | NUR ---
patient slept for approx 6.30 hrs through the night. After given Ambien 10mg she slept comfortable in her bed. will continue to monitor.
[2022-05-27] MEDS: LEVOTHYROXINE SODIUM 75 MCG TABLET PO SCH (06:21)
[2022-05-27] MEDS: BLOOD SUGAR DIAGNOSTIC 1 EACH STRIP VI SCH ×4 (06:41→20:36)
[2022-05-27 07:30] VITALS: BP_SYST 112; BP_SYST 136; BP_DIAS 48
[2022-05-27] MEDS ORDERED: risperiDONE 1 MG TABLET PO SCH ×2 (08:00→21:00)
[2022-05-27] MEDS: OMEGA-3 FATTY ACIDS/FISH OIL CAPSULE PO SCH (09:00)
[2022-05-27] MEDS: risperiDONE 2 MG TABLET PO SCH ×2 (09:00→20:29)
[2022-05-27] MEDS: FLUVOXAMINE MALEATE 50 MG TABLET PO SCH ×2 (09:00→17:07)
[2022-05-27] MEDS: NICOTINE 7 MG/24HR PATCH TD SCH (09:00)
[2022-05-27] MEDS: LITHIUM CARBONATE 150 MG CAPSULE PO SCH ×3 (09:01→17:07)
[2022-05-27] MEDS: NUTRISOURCE FIBER 4 GM PACKET PO SCH (09:01)
[2022-05-27] MEDS: CARBAMAZEPINE 200 MG TABLET PO SCH ×2 (09:01→20:29)
[2022-05-27 16:00] VITALS: BP 94/54
[2022-05-27 20:10] VITALS: BP 116/54
[2022-05-27] MEDS: ATORVASTATIN 20 MG TABLET PO SCH (20:29)
[2022-05-27] MEDS: INSULIN REGULAR, HUMAN 300 UNITS/3 ML VIAL SQ PRN (20:40)
[2022-05-27] MEDS: MELATONIN 3 MG TABLET PO SCH (20:59)
[2022-05-27] MEDS: ZOLPIDEM 5 MG TABLET PO PRN (21:45)
[2022-05-28] MEDS: LEVOTHYROXINE SODIUM 75 MCG TABLET PO SCH (06:10)
[2022-05-28] MEDS: BLOOD SUGAR DIAGNOSTIC 1 EACH STRIP VI SCH ×4 (06:13→20:12)
--- NOTE | 2022-05-28 06:45 | NUR ---
GPS: Pt.slept 4.45 last night. Confused,forgetful,disorganized and intrusive at times. Took scheduled meds. after some persuasion from staff. Re-directed and re-assured prn. Safe environment provided. Blood sugar checks as ordered. Will continue to monitor.
[2022-05-28 07:30] VITALS: BP 140/51
[2022-05-28] MEDS: FLUVOXAMINE MALEATE 50 MG TABLET PO SCH ×2 (09:07→17:46)
[2022-05-28] MEDS: LITHIUM CARBONATE 150 MG CAPSULE PO SCH ×3 (09:08→17:22)
[2022-05-28] MEDS: NICOTINE 7 MG/24HR PATCH TD SCH (09:08)
[2022-05-28] MEDS: risperiDONE 2 MG TABLET PO SCH ×2 (09:08→20:07)
[2022-05-28] MEDS: CARBAMAZEPINE 200 MG TABLET PO SCH ×2 (09:08→20:07)
[2022-05-28] MEDS: OMEGA-3 FATTY ACIDS/FISH OIL CAPSULE PO SCH (09:08)
[2022-05-28] MEDS: NUTRISOURCE FIBER 4 GM PACKET PO SCH (09:09)
[2022-05-28] MEDS: INSULIN REGULAR, HUMAN 300 UNIT/3 ML VIAL SQ PRN (12:21)
--- NOTE | 2022-05-28 15:11 | NUR ---
Patient is forgetful, confused, needs to be redirected, following directions, cooperative with care, and compliant with medications. Self care. Emotional support provided. Fall and safety precautions implemented.
[2022-05-28 16:00] VITALS: BP 136/51
[2022-05-28 20:06] VITALS: BP 131/50
[2022-05-28] MEDS: MELATONIN 3 MG TABLET PO SCH (20:07)
[2022-05-28] MEDS: ATORVASTATIN 20 MG TABLET PO SCH (20:07)
[2022-05-28] MEDS: INSULIN REGULAR, HUMAN 300 UNITS/3 ML VIAL SQ PRN (20:13)
--- NOTE | 2022-05-28 21:05 | NUR ---
GPS: Pt.is confused,forgetful and disorganized. Intrusive,repetitive and attention -seeking. Frequent re-direction provided by staff. Anxious also and verbalizing desire to leave the unit. Explained/reminded numerous times the need to comply with her plan of care. Bedtime meds.reviewed with pt.and taken after. Safety emphasized. Will continue to monitor behavior.
[2022-05-28] MEDS: ZOLPIDEM 5 MG TABLET PO PRN (21:10)
[2022-05-29] MEDS: BLOOD SUGAR DIAGNOSTIC 1 EACH STRIP VI SCH ×4 (06:22→20:36)
[2022-05-29] MEDS: LEVOTHYROXINE SODIUM 75 MCG TABLET PO SCH (06:22)
[2022-05-29 07:30] VITALS: BP 110/53
[2022-05-29] MEDS: LITHIUM CARBONATE 150 MG CAPSULE PO SCH ×3 (09:43→17:01)
[2022-05-29] MEDS: CARBAMAZEPINE 200 MG TABLET PO SCH ×2 (09:43→20:40)
[2022-05-29] MEDS: FLUVOXAMINE MALEATE 50 MG TABLET PO SCH ×2 (09:43→17:01)
[2022-05-29] MEDS: OMEGA-3 FATTY ACIDS/FISH OIL CAPSULE PO SCH (09:43)
[2022-05-29] MEDS: NUTRISOURCE FIBER 4 GM PACKET PO SCH (09:45)
[2022-05-29] MEDS: NICOTINE 7 MG/24HR PATCH TD SCH (09:45)
[2022-05-29] MEDS: risperiDONE 2 MG TABLET PO SCH ×2 (09:50→20:40)
--- NOTE | 2022-05-29 12:40 | NUR ---
Gps/Parts Technician- Gets disoriented, patient came out of her room, she wants some assistance to help her back in her room, informed she just came out of her room. She remembers' most of the staffs' names , appears to be lost most of the times, constant redirections, reorientation provided.
[2022-05-29] MEDS: INSULIN REGULAR, HUMAN 300 UNIT/3 ML VIAL SQ PRN (13:29)
[2022-05-29 16:53] VITALS: BP 94/49
[2022-05-29] MEDS: LORAZEPAM 1 MG TABLET PO PRN (17:55)
[2022-05-29] MEDS: ATORVASTATIN 20 MG TABLET PO SCH (20:40)
[2022-05-29] MEDS: MELATONIN 3 MG TABLET PO SCH (20:40)
[2022-05-29] MEDS: INSULIN REGULAR, HUMAN 300 UNITS/3 ML VIAL SQ PRN (20:58)
[2022-05-29 21:10] VITALS: BP 114/59
[2022-05-30] MEDS: LEVOTHYROXINE SODIUM 75 MCG TABLET PO SCH (06:30)
[2022-05-30] MEDS: BLOOD SUGAR DIAGNOSTIC 1 EACH STRIP VI SCH ×4 (06:31→20:59)
[2022-05-30 07:30] VITALS: BP 98/34
[2022-05-30] MEDS: CARBAMAZEPINE 200 MG TABLET PO SCH ×2 (08:48→20:58)
[2022-05-30] MEDS: LITHIUM CARBONATE 150 MG CAPSULE PO SCH ×3 (08:48→17:13)
[2022-05-30] MEDS: OMEGA-3 FATTY ACIDS/FISH OIL CAPSULE PO SCH (08:48)
[2022-05-30] MEDS: risperiDONE 2 MG TABLET PO SCH ×2 (08:50→20:59)
[2022-05-30] MEDS: NICOTINE 7 MG/24HR PATCH TD SCH (08:51)
[2022-05-30] MEDS: NUTRISOURCE FIBER 4 GM PACKET PO SCH (08:52)
[2022-05-30] MEDS: FLUVOXAMINE MALEATE 50 MG TABLET PO SCH ×2 (08:54→17:13)
[2022-05-30] MEDS: INSULIN REGULAR, HUMAN 300 UNIT/3 ML VIAL SQ PRN ×2 (11:45→21:03)
--- NOTE | 2022-05-30 12:34 | NUR ---
Gps/Vb Net Programmer- Complained feeling tired and no energy this pm, after eating her lunch, adequate fluid intake , safety reviewed . Kept coming out of her room , claimed she wants to go to her room , kept reorienting patient , given her room number , redirections . Patient was able to talked to Yuri ( KATIE)
[2022-05-30 16:00] VITALS: BP 101/57
[2022-05-30 18:00] VITALS: BP 101/57
[2022-05-30 20:00] VITALS: BP 101/46
[2022-05-30] MEDS: ATORVASTATIN 20 MG TABLET PO SCH (20:58)
[2022-05-30] MEDS: MELATONIN 3 MG TABLET PO SCH (20:59)
[2022-05-30] MEDS: LORAZEPAM 1 MG TABLET PO PRN (22:25)
[2022-05-30] MEDS: ACETAMINOPHEN 325 MG TABLET PO PRN (23:06)
--- NOTE | 2022-05-31 05:07 | NUR ---
GPS NOTES: Patient remains confused, going in and out of her room. Forgetful and asks repetitive questions every 15 minutes. Needs constant redirection. Prn ativan given. effective. Patient slept well. No distress noted. Frequent monitoring observed.
[2022-05-31] MEDS: LEVOTHYROXINE SODIUM 75 MCG TABLET PO SCH (06:04)
[2022-05-31] MEDS: BLOOD SUGAR DIAGNOSTIC 1 EACH STRIP VI SCH ×4 (06:35→20:46)
[2022-05-31] MEDS: OMEGA-3 FATTY ACIDS/FISH OIL CAPSULE PO SCH (08:24)
[2022-05-31] MEDS: NICOTINE 7 MG/24HR PATCH TD SCH (08:24)
[2022-05-31] MEDS: CARBAMAZEPINE 200 MG TABLET PO SCH ×2 (08:24→20:54)
[2022-05-31] MEDS: LITHIUM CARBONATE 150 MG CAPSULE PO SCH ×3 (08:25→16:53)
[2022-05-31] MEDS: risperiDONE 2 MG TABLET PO SCH ×2 (08:25→20:54)
[2022-05-31] MEDS: FLUVOXAMINE MALEATE 50 MG TABLET PO SCH ×2 (08:25→16:54)
[2022-05-31] MEDS: NUTRISOURCE FIBER 4 GM PACKET PO SCH (08:32)
[2022-05-31 08:52] VITALS: BP 130/53
--- NOTE | 2022-05-31 11:06 | NUR ---
Gps/Pupil Personnel Services Director- Naps from time to time , refused to attend group therapy , arousable when her name was called . unable to fined her room when she tries to go back, escorted back to her room couple of times
[2022-05-31] MEDS: INSULIN REGULAR, HUMAN 300 UNIT/3 ML VIAL SQ PRN (12:41)
--- NOTE | 2022-05-31 13:09 | NUR ---
Gps/Instructor Robotics- Yuri (DPOA) was able to talked to patient, noted > anxious, , confused, restless, pt. ket redirecting back to her room , claimed she want to lay down and rest. Yuri, verbalized concerns regarding patient's lithium level , requesting drug level tomorrow, informed will report to Dr Marshall, concerns ,
[2022-05-31 16:17] VITALS: BP 105/49
[2022-05-31 20:00] VITALS: BP 134/68
[2022-05-31] MEDS ORDERED: LORAZEPAM 2 MG/1 ML VIAL IV ONE (20:15)
[2022-05-31] MEDS ORDERED: OLANZAPINE 10 MG VIAL IM ONE ×2 (20:15→20:30)
[2022-05-31] MEDS ORDERED: LORAZEPAM 2 MG/1 ML VIAL IV STA (20:23)
[2022-05-31] MEDS: INSULIN REGULAR, HUMAN 300 UNITS/3 ML VIAL SQ PRN (20:48)
[2022-05-31] MEDS: ATORVASTATIN 20 MG TABLET PO SCH (20:54)
[2022-05-31] MEDS: MELATONIN 3 MG TABLET PO SCH (20:54)
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
--- NOTE | 2022-06-01 04:01 | NUR ---
Patient to be sleeping intermittently, frequenting the bathroom and the nurses station. Patient still insist of having to attend a class. Reoriented to time and place, noted to be more re-directable. Safety monitoring observed.
[2022-06-01] MEDS: LEVOTHYROXINE SODIUM 75 MCG TABLET PO SCH (06:07)
[2022-06-01] MEDS: BLOOD SUGAR DIAGNOSTIC 1 EACH STRIP VI SCH ×4 (06:34→20:06)
[2022-06-01] MEDS: LORAZEPAM 1 MG TABLET PO PRN ×2 (06:34→20:05)
--- NOTE | 2022-06-01 06:40 | NUR ---
Ativan 1mg Po rpn given d/t restlessness and agitation
[2022-06-01] MEDS: LITHIUM CARBONATE 150 MG CAPSULE PO SCH ×3 (08:18→17:32)
[2022-06-01] MEDS: OMEGA-3 FATTY ACIDS/FISH OIL CAPSULE PO SCH (08:18)
[2022-06-01] MEDS: risperiDONE 2 MG TABLET PO SCH ×3 (08:19→20:06)
[2022-06-01] MEDS: FLUVOXAMINE MALEATE 50 MG TABLET PO SCH ×2 (08:19→17:31)
[2022-06-01] MEDS: NICOTINE 7 MG/24HR PATCH TD SCH (08:19)
[2022-06-01] MEDS: CARBAMAZEPINE 200 MG TABLET PO SCH ×2 (08:19→20:06)
[2022-06-01] MEDS: NUTRISOURCE FIBER 4 GM PACKET PO SCH (08:20)
--- NOTE | 2022-06-01 11:32 | NUR ---
SW Family Contact: SW contacted pt's Pt's DPOA, Yuri Ribeiro ([phone]) and left a voicemail for a call back regarding pt's discharge plan.
[2022-06-01] MEDS: INSULIN REGULAR, HUMAN 300 UNIT/3 ML VIAL SQ PRN (12:12)
--- NOTE | 2022-06-01 14:30 | NUR ---
GPS: Nursing Notes: Destructive Behavior To Others: Patient is awake and responding to her name, impaired judgment, believes that her boyfriend is here in the unit, "Yuri is here... He is calling me.. He is wearing the color of cloth that you do...", redirected during shift, forgetful, impaired judgment, confused at times, going into other patient's room, needs prompting to participate in therapeutic groups, unable to formulate a viable plan for self care, continue with treatment plan.
--- NOTE | 2022-06-01 15:27 | NUR ---
AXEL Family/DPOA Contact: Pt's DPOA, Yuri Ribeiro ([phone]) returned AXEL's call. Yuri expressed his concerns with the pt's current treatment plan. Yuri in detail explained the pt's medications. Yuri also provided this SW with pt hx. Yuri expressed his goal of the pt returning to her home with a inspector purchased parts carbide grinder. Yuri, however is agreeable to to hear the psychiatrist's recommendation for the pt's continuation of care prior to discharge. Yuri expressed he does not want the pt to return to [facility] ([phone]) as his main goal is for her to return to her home. AXEL expressed this auto service writer will update Yuri with further discharge updates once available. Yuri is appreciative and agreeable.
[2022-06-01 16:29] VITALS: BP 119/55
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
[2022-06-01] MEDS: ATORVASTATIN 20 MG TABLET PO SCH (20:06)
[2022-06-01] MEDS: MELATONIN 3 MG TABLET PO SCH (20:06)
[2022-06-01] MEDS ORDERED: OLANZAPINE 10 MG VIAL IM ONE (20:20)
--- NOTE | 2022-06-01 20:25 | NUR ---
GPS: Pt.received emergency dose of Zyprexa 10 mg IM on right deltoid muscle and mervin.well. Will monitor tolerance and effectiveness of med. Safe environment provided. Re-directed constantly at this time.
[2022-06-01 20:37] VITALS: BP 102/53
--- NOTE | 2022-06-01 21:07 | NUR ---
GPS: Pt.asleep during rounds. Bed alarm on for safety. Breathing easy and unlabored. Will continue to monitor.
--- NOTE | 2022-06-02 01:32 | NUR ---
GPS: Pt.woke up at this time. Confused,forgetful and disorganized. Starting to get agitated again and demanding for food,coffee. Easily irritable/angry when being re-directed. Refuses to go back to sleep and refuses sleeping pill when offered. Constant re-direction provided. Unit rules explained to her several times. Safety emphasized. Will continue to monitor behavior for further escalation.
[2022-06-02] MEDS: LORAZEPAM 1 MG TABLET PO PRN (05:18)
[2022-06-02] MEDS: LEVOTHYROXINE SODIUM 75 MCG TABLET PO SCH (06:14)
[2022-06-02] MEDS: BLOOD SUGAR DIAGNOSTIC 1 EACH STRIP VI SCH ×4 (06:15→20:50)
--- NOTE | 2022-06-02 06:17 | NUR ---
GPS: Pt.slept for 4 hrs. last night. Currently in dining room area watching TV. Calm,pleasant and re-directable at this time. B.S. is 135mg/dl. No s/s of glycemic reactions noted. Safe environment provided. Will continue to monitor.
[2022-06-02 07:30] VITALS: BP 114/56
[2022-06-02] MEDS: NICOTINE 7 MG/24HR PATCH TD SCH (08:53)
[2022-06-02] MEDS: LITHIUM CARBONATE 150 MG CAPSULE PO SCH ×3 (08:54→16:28)
[2022-06-02] MEDS: OMEGA-3 FATTY ACIDS/FISH OIL CAPSULE PO SCH (08:54)
[2022-06-02] MEDS: CARBAMAZEPINE 200 MG TABLET PO SCH ×2 (08:54→20:28)
[2022-06-02] MEDS: FLUVOXAMINE MALEATE 50 MG TABLET PO SCH ×2 (08:54→16:28)
[2022-06-02] MEDS: NUTRISOURCE FIBER 4 GM PACKET PO SCH (08:55)
[2022-06-02] MEDS: OLANZAPINE ZYDIS 5 MG TAB.RAPDIS PO SCH ×4 (09:29→17:00)
[2022-06-02] MEDS: INSULIN REGULAR, HUMAN 300 UNIT/3 ML VIAL SQ PRN ×3 (09:31→16:39)
--- NOTE | 2022-06-02 13:13 | NUR ---
GPS: Nursing Notes: Destructive behavior To Others: Patient is awake and responding to her name, impaired judgment, confused, episodes of talking incoherently, believes that she is in [place], resistant with nursing care, get easily irritable when redirected, forgetful, shouting "I want to go with Yuri...", disoriented, disorganized, unable to formulate a viable plan for self care, continue to monitor for safety, continue with treatment plan.l
[2022-06-02 16:33] VITALS: BP 98/62
[2022-06-02] MEDS: MELATONIN 3 MG TABLET PO SCH (18:01)
[2022-06-02 20:07] VITALS: BP 112/60
[2022-06-02] MEDS: ATORVASTATIN 20 MG TABLET PO SCH (20:28)
[2022-06-02] MEDS: ZOLPIDEM 5 MG TABLET PO PRN (23:49)
[2022-06-03] MEDS: LORAZEPAM 1 MG TABLET PO PRN ×3 (00:26→21:36)
--- NOTE | 2022-06-03 04:51 | NUR ---
GPS NOTES: Increasing confusion noted, patient easily agitated when being re-directed. She is not making meaningful conversations, she is forgetful. She is labile and incongruent. She is med compliant. She is suspicious and wants everybody out of the room. She is sleeping intermittently, going in and out of her room, she is observed to be unsteady on her gait. Remind patient to remain in bed for her safety, however, she gets angry and yells at staff when being directed. Frequent monitoring observed for patients safety.
[2022-06-03] MEDS: LEVOTHYROXINE SODIUM 75 MCG TABLET PO SCH (06:08)
[2022-06-03] MEDS: BLOOD SUGAR DIAGNOSTIC 1 EACH STRIP VI SCH ×4 (06:42→20:51)
[2022-06-03 07:30] VITALS: BP 141/68
[2022-06-03] MEDS ORDERED: TEMAZEPAM 15 MG CAPSULE PO PRN (08:00)
[2022-06-03] MEDS: NICOTINE 7 MG/24HR PATCH TD SCH (09:17)
[2022-06-03] MEDS: OMEGA-3 FATTY ACIDS/FISH OIL CAPSULE PO SCH (09:17)
[2022-06-03] MEDS: OLANZAPINE ZYDIS 5 MG TAB.RAPDIS PO SCH ×2 (09:17→17:27)
[2022-06-03] MEDS: FLUVOXAMINE MALEATE 50 MG TABLET PO SCH ×2 (09:17→17:26)
[2022-06-03] MEDS: CARBAMAZEPINE 200 MG TABLET PO SCH ×2 (09:18→20:51)
[2022-06-03] MEDS: LITHIUM CARBONATE 150 MG CAPSULE PO SCH ×3 (09:18→17:27)
[2022-06-03] MEDS: NUTRISOURCE FIBER 4 GM PACKET PO SCH (09:19)
[2022-06-03 16:00] VITALS: BP 129/61
--- NOTE | 2022-06-03 18:17 | NUR ---
Patient remains confused, needy, attention seeking, and hard to redirect. Can become easily aggitated and elevate to combative behavior. Must continue to set boundaries. Pt is suspicious, and does not trust staff. Very forgetful, and wanders the unit endlessly, is intrusive, and verbally abusive towards staff and other patients. Can be non-compliant with POC. Addendum: 06/03/22 at 1824 by CAMIOL HWANG LVN Patient's significant other calls the unit often (roughly 5+ times) asking for updates and to help reassure the patient regarding POC. Returns multiple calls patient makes to him daily.
--- NOTE | 2022-06-03 18:41 | NUR ---
Patient was yelling confused thoughts. became very irritable, combative, and verbally abusive towards staff and other patients. Patient's significant other tried to reassure her on the phone but patient eventually started to argue and not trust significant other as well. This nurse spent time reassuring her purpose of being in this unit of the hospital. Gave Ativan PRN for increased anxiety. Will continue to monitor.
[2022-06-03 20:15] VITALS: BP 126/52
[2022-06-03] MEDS: ATORVASTATIN 20 MG TABLET PO SCH (20:51)
[2022-06-03] MEDS: OLANZAPINE 5 MG TABLET PO SCH (20:51)
[2022-06-03] MEDS: MELATONIN 3 MG TABLET PO SCH (21:08)
--- NOTE | 2022-06-04 04:52 | NUR ---
GPS NOTES: Patient slept well during shift. Still with confusion but is more-redirectable this time. She refused her hs blood sugar checks, claiming her sister is not doing it. Snacks and food provided. Safety monitoring observed
[2022-06-04] MEDS: LEVOTHYROXINE SODIUM 75 MCG TABLET PO SCH (06:02)
[2022-06-04 07:30] VITALS: BP 138/62
[2022-06-04] MEDS: BLOOD SUGAR DIAGNOSTIC 1 EACH STRIP VI SCH ×4 (07:30→20:48)
[2022-06-04] MEDS: OMEGA-3 FATTY ACIDS/FISH OIL CAPSULE PO SCH (08:38)
[2022-06-04] MEDS: OLANZAPINE ZYDIS 5 MG TAB.RAPDIS PO SCH ×2 (08:39→16:14)
[2022-06-04] MEDS: NICOTINE 7 MG/24HR PATCH TD SCH (08:40)
[2022-06-04] MEDS: LITHIUM CARBONATE 150 MG CAPSULE PO SCH ×3 (08:40→16:13)
[2022-06-04] MEDS: CARBAMAZEPINE 200 MG TABLET PO SCH ×2 (08:40→20:41)
[2022-06-04] MEDS: FLUVOXAMINE MALEATE 50 MG TABLET PO SCH ×2 (08:40→16:14)
[2022-06-04] MEDS: NUTRISOURCE FIBER 4 GM PACKET PO SCH (08:43)
[2022-06-04] MEDS: INSULIN REGULAR, HUMAN 300 UNIT/3 ML VIAL SQ PRN ×2 (08:57→17:00)
[2022-06-04] MEDS: CLONAZEPAM 0.5 MG TABLET PO SCH ×2 (09:00→20:41)
--- NOTE | 2022-06-04 10:00 | NUR ---
Gps/Litharge Supervisor- Complained of upset stomach, " too much acid in my stomach, burning" mylanta 30 ml given po, offered warm miilk to drink, felt some relief , per pt.
--- NOTE | 2022-06-04 13:48 | NUR ---
Gps/Digital Media Planner- Patient asleep , did not eat lunch. Yuri rivera wants to talk to the patient informed pt. remains asleep , but arousable
[2022-06-04] MEDS: MULTIVITAMINS,THERAPEUTIC TABLET PO SCH (14:38)
--- NOTE | 2022-06-04 15:49 | NUR ---
Gps/Airfield Engineer Officer- Patient finally woke up from a long nap, was able to talked to Yuri, had late lunch, redirected to have a shower .Less anxious, calmer this pm.
--- NOTE | 2022-06-04 15:56 | NUR ---
Gps/Faucet Polisher- Text sent to Carla Kelley DNP to check faxed notes from Yuri (DPOA) , kept in the patient's chart.
[2022-06-04 16:00] VITALS: BP 108/53
--- NOTE | 2022-06-04 17:23 | NUR ---
Gps/Winch Derrick Operator-Patient was able to talked to Yuri (KATIE) for 45 minutes, refusing to give up the phone, patient was loud and angry yelling at the DPOA, instructed to tone down her voice. Noted patient wabbly during her ambulation, instructed to sit down , safety reviewed.
[2022-06-04 20:06] VITALS: BP 118/56
[2022-06-04] MEDS: OLANZAPINE 5 MG TABLET PO SCH (20:41)
[2022-06-04] MEDS: ATORVASTATIN 20 MG TABLET PO SCH (20:41)
[2022-06-04] MEDS: MELATONIN 3 MG TABLET PO SCH (20:41)
[2022-06-04] MEDS: INSULIN REGULAR, HUMAN 300 UNITS/3 ML VIAL SQ PRN (20:48)
[2022-06-05] MEDS: LEVOTHYROXINE SODIUM 75 MCG TABLET PO SCH (06:18)
[2022-06-05] MEDS: BLOOD SUGAR DIAGNOSTIC 1 EACH STRIP VI SCH ×4 (06:45→20:49)
[2022-06-05 07:30] VITALS: BP 129/55
[2022-06-05] MEDS: OMEGA-3 FATTY ACIDS/FISH OIL CAPSULE PO SCH (08:52)
[2022-06-05] MEDS: FLUVOXAMINE MALEATE 50 MG TABLET PO SCH ×2 (08:53→17:37)
[2022-06-05] MEDS: OLANZAPINE ZYDIS 5 MG TAB.RAPDIS PO SCH ×2 (08:53→17:38)
[2022-06-05] MEDS: CARBAMAZEPINE 200 MG TABLET PO SCH ×2 (08:53→21:12)
[2022-06-05] MEDS: MULTIVITAMINS,THERAPEUTIC TABLET PO SCH (08:53)
[2022-06-05] MEDS: CLONAZEPAM 0.5 MG TABLET PO SCH ×2 (08:54→21:12)
[2022-06-05] MEDS: LITHIUM CARBONATE 150 MG CAPSULE PO SCH ×3 (08:55→17:37)
[2022-06-05] MEDS: NICOTINE 7 MG/24HR PATCH TD SCH (08:55)
[2022-06-05] MEDS: NUTRISOURCE FIBER 4 GM PACKET PO SCH (08:55)
[2022-06-05] MEDS: INSULIN REGULAR, HUMAN 300 UNIT/3 ML VIAL SQ PRN (09:14)
--- NOTE | 2022-06-05 11:49 | NUR ---
AXEL Family/DPOA Contact: Pt's DPOA Yuri contacted this manual writer and discussed pt's discharge plan. Yuri stated that pt will return home to [address] [place] [address]. Yuri stated he is working to get [facility] services for the pt's continuation of care after discharge. AXEL stated that this manual writer will follow-up with Yuri early next week to discuss anticipated discharge day. Yuri is aware and agreeable.
--- NOTE | 2022-06-05 12:46 | NUR ---
Gps/Semiconductor Engineer- Kept asking for the phone, wants to talk to Gentry (DPNILESH) , noted patient yelling on the phone , redirected patient to her room , while talking to gentry , asking him to come get her , as soon as possible , calling him names.
[2022-06-05 16:16] VITALS: BP 109/55
[2022-06-05 19:56] VITALS: BP 118/52
--- NOTE | 2022-06-05 21:10 | NUR ---
GPS: Pt. at nurses station thinking that she's being discharged tonight. Explained to pt.that she does not have any discharge orders from the doctor yet. Pt.insisting that someone is suppose to pick her up now. Re-directed by staff frequently at this time. Pt.then started to demand for coffee right now. Explained to her that she's not allowed to have one at this time and then she started to get angry,agitated,yelling and screaming. Verbally abusive to this creative services writer and other staff members. Pt.just took her bedtime meds.few minutes ago. Safe environment provided. Constant re-direction provided. Will continue to monitor for further escalation of behavior.
[2022-06-05] MEDS: OLANZAPINE 5 MG TABLET PO SCH (21:12)
[2022-06-05] MEDS: ATORVASTATIN 20 MG TABLET PO SCH (21:12)
[2022-06-05] MEDS: MELATONIN 3 MG TABLET PO SCH (21:12)
--- NOTE | 2022-06-05 21:15 | NUR ---
GPS: Pt.noted to be yelling at his DPOA Yuri Morales over the phone. Agitated/hostile and demanding for Yuri to get her out of here. Staff asked pt.to lower down her voice.
--- NOTE | 2022-06-05 21:30 | NUR ---
GPS: Pt.observed to be resting in bed at this time. No further agitation noted. Fall precautions observed. Will continue to monitor behavior.
[2022-06-06] MEDS: BLOOD SUGAR DIAGNOSTIC 1 EACH STRIP VI SCH ×4 (06:42→21:33)
[2022-06-06] MEDS: LEVOTHYROXINE SODIUM 75 MCG TABLET PO SCH (06:42)
--- NOTE | 2022-06-06 06:51 | NUR ---
GPS: Pt.slept 5.30 last night. B.S. at this time is 143mg/dl. No further escalation of behavior noted. Re-directed and re-assured prn. Safe environment provided. Will continue to monitor.
[2022-06-06 07:40] VITALS: BP 93/48
[2022-06-06] MEDS: INSULIN REGULAR, HUMAN 300 UNIT/3 ML VIAL SQ PRN ×3 (07:55→21:38)
[2022-06-06] MEDS: LITHIUM CARBONATE 150 MG CAPSULE PO SCH ×3 (08:52→16:36)
[2022-06-06] MEDS: NICOTINE 7 MG/24HR PATCH TD SCH (08:52)
[2022-06-06] MEDS: OLANZAPINE ZYDIS 5 MG TAB.RAPDIS PO SCH ×2 (08:52→16:36)
[2022-06-06] MEDS: CARBAMAZEPINE 200 MG TABLET PO SCH ×2 (08:52→21:12)
[2022-06-06] MEDS: CLONAZEPAM 0.5 MG TABLET PO SCH ×2 (08:52→21:13)
[2022-06-06] MEDS: NUTRISOURCE FIBER 4 GM PACKET PO SCH (08:53)
[2022-06-06] MEDS: FLUVOXAMINE MALEATE 50 MG TABLET PO SCH ×2 (08:53→16:36)
[2022-06-06] MEDS: MULTIVITAMINS,THERAPEUTIC TABLET PO SCH (08:53)
[2022-06-06] MEDS: OMEGA-3 FATTY ACIDS/FISH OIL CAPSULE PO SCH (08:53)
--- NOTE | 2022-06-06 11:17 | NUR ---
GPS: Nursing Notes: Destructive Behavior To Others: Patient is awake and responding to her name, confused, disoriented, forgetful, impaired judgment, poor insight, gets easily irritable when redirected, loud and pressured speech at times, disorganized, disoriented, redirected and reoriented during shift, intrusive, getting into other patient's room, unable to formulate a viable plan for self care, continue to monitor for safety, continue with treatment plan.
[2022-06-06 16:29] VITALS: BP 91/42
--- NOTE | 2022-06-06 16:40 | NUR ---
GPS: Nursing Notes: Severe Agitation: Patient is awake and responding to her name, loud and pressured speech, gets easily irritable when redirected, poor anger management, threatening staff, violent outburst without provocation, throw water to staff at the nursing station, redirected, but continue to be angry, "I want to leave..", "He is keeping me here..", continue to monitor for safety, continue with treatment plan.
--- NOTE | 2022-06-06 16:57 | NUR ---
GPS: Nursing Notes: Chemical Restraint: Patient is awake and responding to her name, loud and angry speech, poor anger management, gets easily irritable when redirected, throw water all over the staff at the nursing station, violent outburst without provocation, believes that she is ready to leave, believes that staff is keeping her here, threatening staff, R=18, medication - Zyprexa 10mg IM x1 STAT given to patient at this time, continue to be verbal abusive, calling staff "BITCH...BITCH..", continue to monitor for safety, continue with treatment plan.
[2022-06-06] MEDS ORDERED: OLANZAPINE 10 MG VIAL IM ONE (17:00)
--- NOTE | 2022-06-06 17:27 | NUR ---
GPS: Nursing Notes: Reassessment of Chemical Restraint: Patient is awake and responding to her name, patient calmed down, sitting on her bed eating her dinner and talking on the phone, impaired judgment, medication Zyprexa IM was effective, R=18, continue to monitor for safety, continue with treatment plan.
[2022-06-06 19:49] VITALS: BP 103/46
[2022-06-06] MEDS: OLANZAPINE 5 MG TABLET PO SCH (21:12)
[2022-06-06] MEDS: MELATONIN 3 MG TABLET PO SCH (21:12)
[2022-06-06] MEDS: ATORVASTATIN 20 MG TABLET PO SCH (21:12)
[2022-06-06] MEDS: ACETAMINOPHEN 325 MG TABLET PO PRN (23:28)
--- NOTE | 2022-06-06 23:30 | NUR ---
Patient complained of lower back pain and requested medication. No redness, ecchymosis, and non-tender to palpation noted. Gave prn Tylenol 650 mg. Patient in bed resting/sleeping semi-Fowlers. Will continue to monitor.
[2022-06-07] MEDS: BLOOD SUGAR DIAGNOSTIC 1 EACH STRIP VI SCH ×4 (06:31→20:10)
[2022-06-07] MEDS: LEVOTHYROXINE SODIUM 75 MCG TABLET PO SCH (06:33)
--- NOTE | 2022-06-07 06:47 | NUR ---
Patient slept well throughout the night. Compliant with medication regimen this shift. Will continue to monitor and provide reassurance and education.
[2022-06-07 07:38] VITALS: BP 139/51
[2022-06-07] MEDS: MULTIVITAMINS,THERAPEUTIC TABLET PO SCH (08:32)
[2022-06-07] MEDS: CARBAMAZEPINE 200 MG TABLET PO SCH ×2 (08:32→20:18)
[2022-06-07] MEDS: CLONAZEPAM 0.5 MG TABLET PO SCH ×2 (08:32→20:20)
[2022-06-07] MEDS: FLUVOXAMINE MALEATE 50 MG TABLET PO SCH ×2 (08:32→16:49)
[2022-06-07] MEDS: OLANZAPINE ZYDIS 5 MG TAB.RAPDIS PO SCH ×2 (08:32→16:49)
[2022-06-07] MEDS: OMEGA-3 FATTY ACIDS/FISH OIL CAPSULE PO SCH (08:32)
[2022-06-07] MEDS: NICOTINE 7 MG/24HR PATCH TD SCH (08:32)
[2022-06-07] MEDS: LITHIUM CARBONATE 150 MG CAPSULE PO SCH ×3 (08:32→16:49)
[2022-06-07] MEDS: NUTRISOURCE FIBER 4 GM PACKET PO SCH (08:33)
--- NOTE | 2022-06-07 09:42 | NUR ---
GPS: Nursing Notes: 5270 [facility] Request: Staff gave a copy of 5270 to patient. Explained 5270 and informed patient that a certification review hearing will be held within four days and patient's rights advocate will call her to provide assistance in preparing for the hearing and answer questions. The court has been notified of this certification on this day via [facility] portal.
[2022-06-07] MEDS: INSULIN REGULAR, HUMAN 300 UNIT/3 ML VIAL SQ PRN ×3 (11:55→20:25)
--- NOTE | 2022-06-07 14:12 | NUR ---
GPS: Nursing Notes: Destructive Behavior To Others: Patient is awake and responding to her name, disoriented, impaired judgment, poor insight, forgetful, disorganized, labile, unpredictable behavior, gets easily irritable when redirected, poor anger management, trying to strike to staff at time, loud and pressured speech, shouting to the psychiatrist "I want to go home...", resistant with nursing care, paranoid behavior at times, believes that she is not in the hospital, wandering around the unit aimlessly at times, getting into other patient's room, redirected and reoriented during shift, unable to formulate a viable plan for self care, continue to monitor for safety, continue with treatment plan.
[2022-06-07 15:38] VITALS: BP 128/50
[2022-06-07 19:53] VITALS: BP 132/64
[2022-06-07] MEDS: ATORVASTATIN 20 MG TABLET PO SCH (20:18)
[2022-06-07] MEDS: MELATONIN 3 MG TABLET PO SCH (20:19)
[2022-06-07] MEDS: OLANZAPINE 5 MG TABLET PO SCH (20:20)
[2022-06-08] MEDS: LEVOTHYROXINE SODIUM 75 MCG TABLET PO SCH (06:20)
[2022-06-08] MEDS: BLOOD SUGAR DIAGNOSTIC 1 EACH STRIP VI SCH ×4 (06:29→20:29)
--- NOTE | 2022-06-08 06:34 | NUR ---
Patient communicates and cooperates much better with staff when pt is compliant with medication regimen. Cognitive abilities is imporoved as well. Less confusion, and sometimes pt is able to redirect herself without the need of redirection from staff.
--- NOTE | 2022-06-08 06:37 | NUR ---
Per sliding scale, insulin coverage wasn't needed in the morning/before breakfast. Pt still presenting with improved cognitive abilities when compliant with medication regimen.
[2022-06-08 08:28] VITALS: BP 122/71
[2022-06-08] MEDS: NICOTINE 7 MG/24HR PATCH TD SCH (08:56)
[2022-06-08] MEDS: CARBAMAZEPINE 200 MG TABLET PO SCH ×2 (08:56→20:19)
[2022-06-08] MEDS: OMEGA-3 FATTY ACIDS/FISH OIL CAPSULE PO SCH (08:56)
[2022-06-08] MEDS: CLONAZEPAM 0.5 MG TABLET PO SCH ×2 (08:56→20:20)
[2022-06-08] MEDS: OLANZAPINE ZYDIS 5 MG TAB.RAPDIS PO SCH ×2 (08:56→17:24)
[2022-06-08] MEDS: LITHIUM CARBONATE 150 MG CAPSULE PO SCH ×3 (08:56→17:24)
[2022-06-08] MEDS: NUTRISOURCE FIBER 4 GM PACKET PO SCH (08:57)
[2022-06-08] MEDS: FLUVOXAMINE MALEATE 50 MG TABLET PO SCH ×2 (08:57→17:24)
[2022-06-08] MEDS: MULTIVITAMINS,THERAPEUTIC TABLET PO SCH (08:57)
[2022-06-08] MEDS: INSULIN REGULAR, HUMAN 300 UNIT/3 ML VIAL SQ PRN ×2 (11:35→20:43)
--- NOTE | 2022-06-08 15:02 | NUR ---
[facility] Family/DPOA Contact: This SW contacted pt's DPOA, Yuri Ribeiro ([phone]) and discussed the pt's discharge plan to return home on by Yuri's transportation. Yuri's questions were addressed. AXEL stated this typewriter tester will discuss final details and questions with Dr. Marshall and confirm discharge details with Yuri on Wednesday. Yrui is aware and agreeable.
--- NOTE | 2022-06-08 15:37 | NUR ---
GPS: Nursing Notes: Destructive Behavior To Others: Patient is awake and responding to her name, compliant with her medications, forgetful, disoriented, impaired judgment, poor insight, disorganized, argumentative at times, needs assistance with ADL's, redirected and reoriented during shift, unable to formulate a viable plan for self care, continue to monitor for safety, continue with treatment plan.
[2022-06-08 20:18] VITALS: BP 122/54
[2022-06-08] MEDS: MELATONIN 3 MG TABLET PO SCH (20:19)
[2022-06-08] MEDS: ATORVASTATIN 20 MG TABLET PO SCH (20:19)
[2022-06-08] MEDS: OLANZAPINE 5 MG TABLET PO SCH (20:19)
[2022-06-09 07:34] VITALS: BP 140/56
[2022-06-09] MEDS: BLOOD SUGAR DIAGNOSTIC 1 EACH STRIP VI SCH ×4 (07:34→20:21)
[2022-06-09] MEDS: LEVOTHYROXINE SODIUM 75 MCG TABLET PO SCH (07:36)
[2022-06-09] MEDS: OMEGA-3 FATTY ACIDS/FISH OIL CAPSULE PO SCH (08:33)
[2022-06-09] MEDS: FLUVOXAMINE MALEATE 50 MG TABLET PO SCH ×2 (08:33→16:48)
[2022-06-09] MEDS: NICOTINE 7 MG/24HR PATCH TD SCH (08:33)
[2022-06-09] MEDS: LITHIUM CARBONATE 150 MG CAPSULE PO SCH ×3 (08:34→16:48)
[2022-06-09] MEDS: NUTRISOURCE FIBER 4 GM PACKET PO SCH (08:34)
[2022-06-09] MEDS: CARBAMAZEPINE 200 MG TABLET PO SCH ×2 (08:34→20:15)
[2022-06-09] MEDS: CLONAZEPAM 0.5 MG TABLET PO SCH ×2 (08:34→20:15)
[2022-06-09] MEDS: MULTIVITAMINS,THERAPEUTIC TABLET PO SCH (08:34)
[2022-06-09] MEDS: OLANZAPINE ZYDIS 5 MG TAB.RAPDIS PO SCH ×2 (08:34→16:48)
[2022-06-09] MEDS: INSULIN REGULAR, HUMAN 300 UNIT/3 ML VIAL SQ PRN ×3 (08:52→16:47)
--- NOTE | 2022-06-09 12:23 | NUR ---
GPS: Nursing Notes: Destructive Behavior To Others: Patient is awake and responding to her name, disoriented, disorganized, confused, impaired judgment, poor insight, gets easily irritable when redirected, argumentative with staff, overly demanding at times, but gets angry when her demands are not met immediately, redirected and reoriented during shift, unable to formulate a viable plan for self care, no signs of aggression noted, continue to monitor for safety, continue with treatment plan.
[2022-06-09 16:00] VITALS: BP 120/56
[2022-06-09 19:57] VITALS: BP 132/64
[2022-06-09] MEDS: MELATONIN 3 MG TABLET PO SCH (20:15)
[2022-06-09] MEDS: OLANZAPINE 5 MG TABLET PO SCH (20:15)
[2022-06-09] MEDS: ATORVASTATIN 20 MG TABLET PO SCH (20:15)
[2022-06-09] MEDS: INSULIN REGULAR, HUMAN 300 UNITS/3 ML VIAL SQ PRN (20:22)
[2022-06-10] MEDS: LEVOTHYROXINE SODIUM 75 MCG TABLET PO SCH (06:21)
[2022-06-10] MEDS: BLOOD SUGAR DIAGNOSTIC 1 EACH STRIP VI SCH ×4 (06:22→20:24)
--- NOTE | 2022-06-10 06:47 | NUR ---
GPS: Pt.slept 5 hrs.last night. B.S. at this time is 149mg/dl. Pt.is less anxious and intrusive. Listens to re-direction from staff. Poor insight and impaired judgement. Safe environment provided. No aggressive behavior noted. Will continue to monitor.
[2022-06-10 07:30] VITALS: BP 121/80
[2022-06-10] MEDS: MULTIVITAMINS,THERAPEUTIC TABLET PO SCH (08:24)
[2022-06-10] MEDS: OMEGA-3 FATTY ACIDS/FISH OIL CAPSULE PO SCH (08:24)
[2022-06-10] MEDS: OLANZAPINE ZYDIS 5 MG TAB.RAPDIS PO SCH ×2 (08:24→17:04)
[2022-06-10] MEDS: INSULIN REGULAR, HUMAN 300 UNIT/3 ML VIAL SQ PRN ×2 (08:24→12:09)
[2022-06-10] MEDS: LITHIUM CARBONATE 150 MG CAPSULE PO SCH ×3 (08:24→17:04)
[2022-06-10] MEDS: FLUVOXAMINE MALEATE 50 MG TABLET PO SCH ×2 (08:25→17:04)
[2022-06-10] MEDS: NICOTINE 7 MG/24HR PATCH TD SCH (08:25)
[2022-06-10] MEDS: CLONAZEPAM 0.5 MG TABLET PO SCH ×2 (08:25→20:08)
[2022-06-10] MEDS: CARBAMAZEPINE 200 MG TABLET PO SCH ×2 (08:25→20:08)
[2022-06-10] MEDS: NUTRISOURCE FIBER 4 GM PACKET PO SCH (08:40)
[2022-06-10] MEDS: LORAZEPAM 1 MG TABLET PO PRN ×4 (10:29→23:42)
--- NOTE | 2022-06-10 10:34 | NUR ---
Attempted to give medication for increased agitation and anxiety. Patient refused. Re-educated on the importance of staying calm and not stressing herself out d/t things that are out of her control. Reminded her that staff is here to help her, and are not against her. Re-advised her to speak nicely to others. Will continue to monitor.
--- NOTE | 2022-06-10 10:58 | NUR ---
Patient eventually complied with taking Ativan for increased anxiety and agitation. Gave 1mg. Will continue to monitor.
--- NOTE | 2022-06-10 14:43 | NUR ---
[facility] Family/DPOA Contact: This SW contacted pt's DPOA, Yuri Ribeiro ([phone]) and left a voicemail for a call back to discuss final discharge details and follow-up psychiatric appointment for pt's continuation of care.
[2022-06-10 16:00] VITALS: BP 135/65
--- NOTE | 2022-06-10 16:28 | NUR ---
[facility] Family/DPOA Contact: Pt's DPOA, Yuri Ribeiro ([phone]) returned this SW's call and confirmed 11:30am transportation for the pt on 06/11/22 by his private vehicle transportation and pt's follow-up appointments.
[2022-06-10 19:49] VITALS: BP 130/67
[2022-06-10] MEDS: ATORVASTATIN 20 MG TABLET PO SCH (20:08)
[2022-06-10] MEDS: MELATONIN 3 MG TABLET PO SCH (20:08)
[2022-06-10] MEDS: OLANZAPINE 5 MG TABLET PO SCH (20:08)
[2022-06-10] MEDS: INSULIN REGULAR, HUMAN 300 UNITS/3 ML VIAL SQ PRN (21:02)
[2022-06-11] MEDS: LEVOTHYROXINE SODIUM 75 MCG TABLET PO SCH (06:02)
[2022-06-11] MEDS: BLOOD SUGAR DIAGNOSTIC 1 EACH STRIP VI SCH ×2 (06:21→11:30)
[2022-06-11 07:30] VITALS: BP 125/57
[2022-06-11] MEDS ORDERED: GLIMEPIRIDE 2 MG TABLET PO SCH (08:00)
[2022-06-11 08:42] LABS: HEMATOCRIT 31.9 % (31.2-41.9); MEAN CORPUSCULAR HEMOGLOBIN 31.7 uug (24.7-32.8); PLATELET COUNT (AUTO) 267 K/uL (179-408)
[2022-06-11] MEDS: NUTRISOURCE FIBER 4 GM PACKET PO SCH (09:00)
[2022-06-11] MEDS: FLUVOXAMINE MALEATE 50 MG TABLET PO SCH (09:10)
[2022-06-11] MEDS: OMEGA-3 FATTY ACIDS/FISH OIL CAPSULE PO SCH (09:10)
[2022-06-11] MEDS: LITHIUM CARBONATE 150 MG CAPSULE PO SCH ×2 (09:10→12:05)
[2022-06-11] MEDS: MULTIVITAMINS,THERAPEUTIC TABLET PO SCH (09:10)
[2022-06-11] MEDS: CLONAZEPAM 0.5 MG TABLET PO SCH (09:11)
[2022-06-11] MEDS: OLANZAPINE ZYDIS 5 MG TAB.RAPDIS PO SCH (09:11)
[2022-06-11] MEDS: CARBAMAZEPINE 200 MG TABLET PO SCH (09:11)
[2022-06-11] MEDS: NICOTINE 7 MG/24HR PATCH TD SCH (09:16)
[2022-06-11] MEDS: INSULIN REGULAR, HUMAN 300 UNIT/3 ML VIAL SQ PRN (09:18)
[2022-06-11 09:30] LABS: BILIRUBIN,TOTAL 0.1 mg/dL (0.2-1.0); CREATININE 1.7 mg/dL (0.6-1.3); MAGNESIUM 2.4 mg/dL (1.8-2.4); PHOSPHOROUS 4.5 mg/dL (2.5-4.9); POTASSIUM 4.8 mmol/L (3.5-5.1); TOTAL PROTEIN, SERUM 7.3 g/dL (6.4-8.2)
--- NOTE | 2022-06-11 09:51 | NUR ---
[facility] Discharge Note: Pt will be discharged home to [address] [place] [address] ([phone]) via pts DPOA, Dr. Yuri Williamson ([phone]) private vehicle transportation at 11:30AM. AXEL spoke with Dr. Ribeiro ([phone]) who states he is ready to accept the patient at home today. Pt is aware and agreeable with the discharge plan. Pt is alert and oriented x3 but is unable to plan for self-care at this time. However, pt is willing to accept care at home by Dr. Ribeiro. Pt denies any suicidal or homicidal ideation. Pt denies any auditory and visual hallucination. Pt will follow-up with her outpatient psychiatrist, Dr. Kwan ([phone]) located at [address], [place] [address] via teletherapy on June 17, 2020, at 12:30PM. Pts DPOA, Dr. Yuri Ribeiro stated she does not have an student development coordinator at this time. AXEL referred pt to [facility] for primary doctor located at [address], [address], [place] [address] ([phone]). Pt will follow-up with [facility] ([phone]) for continuation of care per Dr. Ribeiro. Pt presents with calm mood and congruent affect. Pt PHARMACY: [facility] [address], [facility] [address] ([phone]).
--- NOTE | 2022-06-11 13:05 | NUR ---
pt is being discharged. Being picked up by her boyfriend, Yuri. Pt's stable, vs are wnl. Discharge instructions were given to the patient, including prescription for medication. Pt verbalizes understanding.
== END 2022-06-11 14:27 | disposition home or self-care (01) | DRG 885 ==
LOC: ER 16:19 → GPS 21:23
PROVIDERS: ADMIT Psychiatry & Neurology Psychiatry; ATTEND Student in an Organized Health Care Education/Training Program
DX: F31.2 Bipolar disorder, current episode manic severe with psychotic features (principal); N18.9 Chronic kidney disease, unspecified; N17.0 Acute kidney failure with tubular necrosis; E11.65 Type 2 diabetes mellitus with hyperglycemia; G93.41 Metabolic encephalopathy; I69.351 Hemiplegia and hemiparesis following cerebral infarction affecting right dominant side; E86.0 Dehydration; E11.22 Type 2 diabetes mellitus with diabetic chronic kidney disease; I12.9 Hypertensive chronic kidney disease with stage 1 through stage 4 chronic kidney disease, or unspecified chronic kidney disease; Z79.4 Long term (current) use of insulin; E03.9 Hypothyroidism, unspecified; F41.9 Anxiety disorder, unspecified; Z73.6 Limitation of activities due to disability; E78.5 Hyperlipidemia, unspecified; F42.9 Obsessive-compulsive disorder, unspecified; Z79.84 Long term (current) use of oral hypoglycemic drugs; I69.328 Other speech and language deficits following cerebral infarction; Z20.822 Contact with and (suspected) exposure to COVID-19; Z79.899 Other long term (current) drug therapy
CPT/HCPCS: 36415; 70030-TC; 71045; 83550; 83735; 84100; 84443; 85025; 87086; 93005; A4663; A9150; G0480; J1200; J1630; J1815; J2060; J2358

== ENCOUNTER 2022-07-01 14:10 | Inpatient (IN) | payer MEDICARE, BC ==
[~2022-07-01] VITALS: Ht 157.5 cm; Wt 58.1 kg
[~2022-07-01 14:10] MED LIST changes: +ACET-3315 PO; -GUAN1TAB2 PO; +INSU100V28 SQ; +MELA3TAB41 PO; -METF-440 PO; +NICO-671 TP; -NICOTINE; +OMEG10002 PO; -PROG100C15 PO
[2022-07-01] MEDS ORDERED: MAGN250T37 PO (14:29)
[2022-07-01] MEDS ORDERED: CARB200T PO (14:29)
[2022-07-01] MEDS ORDERED: FLUV100T3 PO (14:40)
[2022-07-01] MEDS ORDERED: OLAN5TAB3 PO ×2 (14:40→16:50)
[2022-07-01] MEDS ORDERED: LITH150C PO (14:40)
[2022-07-01] MEDS ORDERED: CLON0.5T PO (14:40)
[2022-07-01] MEDS ORDERED: GLIM1TAB PO (14:40)
[2022-07-01 15:06] LABS: HEMATOCRIT 29.3 % (31.2-41.9); MEAN CORPUSCULAR HEMOGLOBIN 30.6 uug (24.7-32.8); MEAN CORPUSCULAR VOLUME 95.3 fL (75.5-95.3); PLATELET COUNT (AUTO) 300 K/uL (179-408)
[2022-07-01 15:13] LABS: CARBON DIOXIDE 22 mmol/L (21-32); CHLORIDE 104 mmol/L (98-107); CREATININE 1.8 mg/dL (0.6-1.3); GLUCOSE 244 mg/dL (74-106); POTASSIUM 4.3 mmol/L (3.5-5.1); UREA NITROGEN, BLOOD 36 mg/dL (7-18)
[2022-07-01 15:17] LABS: ETHANOL < 3 MG/DL (0-0)
[2022-07-01 15:21] LABS: ALANINE AMINOTRANSFERASE 39 U/L (14-59); ALKALINE PHOSPHATASE 88 U/L (50-136); ASPARTATE AMINOTRANSFERASE 14 U/L (15-37); BILIRUBIN,DIRECT < 0.1 mg/dL (0.0-0.2); BILIRUBIN,TOTAL 0.2 mg/dL (0.2-1.0); TOTAL PROTEIN, SERUM 6.4 g/dL (6.4-8.2)
[2022-07-01 15:22] LABS: ACETAMINOPHEN < 2.0 ug/mL (10-30)
[2022-07-01 15:39] LABS: THYROID STIMULATING HORMONE 1.951 mIU/mL (0.358-3.740)
[2022-07-01] MEDS ORDERED: METF-440 PO (16:50)
[2022-07-01] MEDS ORDERED: IV NS 1000 ML 1,000 ML IV PRN (17:00)
[2022-07-01] MEDS ORDERED: ONDANSETRON 4 MG/2 ML VIAL IV PRN (17:00)
[2022-07-01] MEDS ORDERED: ACETAMINOPHEN 325 MG TABLET PO PRN (17:00)
[2022-07-01] MEDS ORDERED: REMEDY ESSENTIAL ZINC PASTE 113 GM TP PRN (17:00)
[2022-07-01] MEDS ORDERED: DEXTROSE 50% 50 ML DISP.SYRIN IV PRN (17:15)
[2022-07-01] MEDS ORDERED: INSULIN REGULAR, HUMAN 300 UNIT/3 ML VIAL SQ PRN (17:15)
[2022-07-01 18:32] VITALS: BP 154/55
[2022-07-01 18:43] LABS: *BILIRUBIN,URIN NEGATIVE (NEGATIVE); *CLARITY,URINE CLEAR (CLEAR); *COLOR,URINE YELLOW (YELLOW); *KETONES,URINE NEGATIVE (NEGATIVE); *UROBILINOGEN,URINE 0.2 E.U./dl (NORMAL); LEUKOCYTE ESTERASE ,URINE NEGATIVE (NEGATIVE); NITRITE, URINE NEGATIVE (NEGATIVE); UGLUCOSE TRACE (NEGATIVE)
[2022-07-01 18:45] LABS: *BLOOD, URINE TRACE (NEGATIVE)
[2022-07-01] MEDS ORDERED: HEPARIN SODIUM,PORCINE 5,000 UNITS/ML VIAL SQ SCH (19:00)
[2022-07-01 20:13] LABS: BACTERIA,URINE FEW /HPF (NONE SEEN); RBC,URINE 0-3 /HPF (0-3); SQUAMOUS EPITHELIAL CELL,UR FEW /HPF (NONE SEEN); WBC,URINE 0-3 /HPF (0-3)
[2022-07-01 20:45] VITALS: BP 136/65
[2022-07-01] MEDS ORDERED: BLOOD SUGAR DIAGNOSTIC 1 EACH STRIP VI SCH (21:00)
[2022-07-01] MEDS ORDERED: ATORVASTATIN 20 MG TABLET PO SCH (21:00)
[2022-07-02] MEDS ORDERED: LEVOTHYROXINE SODIUM 75 MCG TABLET PO SCH (07:00)
[2022-07-02] MEDS ORDERED: PANTOPRAZOLE SODIUM 40 MG TABLET.DR PO SCH (07:00)
[2022-07-02] MEDS ORDERED: LITHIUM CARBONATE 150 MG CAPSULE PO SCH (09:00)
[2022-07-02] MEDS ORDERED: OMEGA PO SCH (09:00)
[2022-07-02] MEDS ORDERED: FATTY ACIDS PO SCH (09:00)
[2022-07-02] MEDS ORDERED: FLUVOXAMINE MALEATE 50 MG TABLET PO SCH (09:00)
[2022-07-02] MEDS ORDERED: OMEGA-3 FATTY ACIDS/FISH OIL CAPSULE PO SCH (09:00)
[2022-07-02] MEDS ORDERED: FLUVOXAMINE MALEATE PO SCH (09:00)
== END 2022-07-01 21:00 | disposition left against medical advice (07) | DRG 917 ==
LOC: ER 14:10 → TELE3 16:30
PROVIDERS: ADMIT Nurse Practitioner Family; ATTEND Nurse Practitioner Family
DX: T42.1X1A Poisoning by iminostilbenes, accidental (unintentional), initial encounter (principal); N17.0 Acute kidney failure with tubular necrosis; E44.1 Mild protein-calorie malnutrition; I69.351 Hemiplegia and hemiparesis following cerebral infarction affecting right dominant side; N18.9 Chronic kidney disease, unspecified; Z79.4 Long term (current) use of insulin; E78.5 Hyperlipidemia, unspecified; E11.22 Type 2 diabetes mellitus with diabetic chronic kidney disease; E03.9 Hypothyroidism, unspecified; D64.9 Anemia, unspecified; I12.9 Hypertensive chronic kidney disease with stage 1 through stage 4 chronic kidney disease, or unspecified chronic kidney disease; E88.09 Other disorders of plasma-protein metabolism, not elsewhere classified; R40.0 Somnolence; Y92.009 Unspecified place in unspecified non-institutional (private) residence as the place of occurrence of the external cause; F31.9 Bipolar disorder, unspecified; Z68.23 Body mass index [BMI] 23.0-23.9, adult; Z20.822 Contact with and (suspected) exposure to COVID-19; Z79.84 Long term (current) use of oral hypoglycemic drugs
CPT/HCPCS: 36415; 70030-TC; 70450; 71045; 83605; 84443; 84484; 85025; 87040; 93005; A4663; G0378; G0480; J1644; J1815; J7040

== ENCOUNTER 2024-01-11 11:02 | Inpatient (IN) | payer MEDICARE, BC ==
[~2024-01-11] VITALS: Ht 152.4 cm; Wt 53.1 kg
[~2024-01-11 11:02] MED LIST changes: +CARB200T PO; +CLON0.5T PO; +FLUV100T3 PO; +GLIM1TAB PO; +LITH150C PO; +MAGN250T37 PO; +METF-440 PO; +OLAN5TAB3 PO
[2024-01-11] MEDS: IV NORMAL SALINE 500 ML BAG IV ONE (11:28)
[2024-01-11 11:40] LABS: BASOPHILS # (AUTO) 0.1 K/UL (0.0-0.2); BASOPHILS % (AUTO) 1.1 % (0.0-2.0); EOSINOPHILS # (AUTO) 0.4 K/uL (0.0-0.7); EOSINOPHILS % (AUTO) 3.5 % (0.0-7.0); HEMATOCRIT 36.2 % (31.2-41.9); HEMOGLOBIN 11.8 g/dL (10.9-14.3); LYMPHOCYTES # (AUTO) 2.1 K/uL (0.8-4.8); LYMPHOCYTES % (AUTO) 19.8 % (20.5-51.5); MEAN CORPUSCULAR HEMOGLOBIN 31.7 uug (24.7-32.8); MEAN CORPUSCULAR HGB CONC 33 g/dL (32.3-35.6); MEAN CORPUSCULAR VOLUME 96.9 fL (75.5-95.3); MONOCYTES # (AUTO) 0.8 K/uL (0.1-1.30); MONOCYTES % (AUTO) 7.8 % (0.0-11.0); NEUTROPHILS # (AUTO) 7.3 K/uL (1.8-8.9); NEUTROPHILS % (AUTO) 67.8 % (38.5-71.5); PLATELET COUNT (AUTO) 247 K/uL (179-408); RED BLOOD CELL COUNT(AUTO) 3.73 MIL/uL (3.63-4.92); RED CELL DISTRIBUTION WIDTH 13.2 % (12.3-17.7); WHITE BLOOD COUNT (AUTO) 10.7 K/uL (3.8-11.8)
[2024-01-11 11:44] LABS: DIFFERENTIAL COMMENT 1
[2024-01-11 11:48] LABS: CALCIUM 8.7 mg/dL (8.5-10.1); CARBON DIOXIDE 19 mmol/L (21-32); CHLORIDE 106 mmol/L (98-107); CREATININE 1.7 mg/dL (0.6-1.3); GLUCOSE 133 mg/dL (74-106); POTASSIUM 4.4 mmol/L (3.5-5.1); SODIUM SERUM 137 mmol/L (136-145); UREA NITROGEN, BLOOD 49 mg/dL (7-18)
[2024-01-11 11:57] LABS: ALANINE AMINOTRANSFERASE 24 U/L (14-59); ALBUMIN 3.8 g/dL (3.4-5.0); ALKALINE PHOSPHATASE 76 U/L (50-136); ASPARTATE AMINOTRANSFERASE 9 U/L (15-37); BILIRUBIN,DIRECT 0.1 mg/dL (0.0-0.2); BILIRUBIN,TOTAL 0.2 mg/dL (0.2-1.0); TOTAL PROTEIN, SERUM 6.8 g/dL (6.4-8.2)
[2024-01-11] MEDS ORDERED: ACETAMINOPHEN 325 MG TABLET PO PRN (12:30)
[2024-01-11] MEDS ORDERED: REMEDY ESSENTIAL ZINC PASTE 113 GM TP PRN (12:30)
[2024-01-11] MEDS ORDERED: ONDANSETRON 4 MG/2 ML VIAL IV PRN (12:30)
[2024-01-11] MEDS ORDERED: MAGNESIUM HYDROXIDE 30 ML LIQUID UDC PO PRN (12:30)
[2024-01-11] MEDS ORDERED: ACETAMINOPHEN 325 MG TABLET-SA PATIENTS-PAIN ONLY PO PRN (12:30)
[2024-01-11 12:36] LABS: *BILIRUBIN,URIN NEGATIVE (NEGATIVE); *BLOOD, URINE NEGATIVE (NEGATIVE); *CLARITY,URINE CLEAR (CLEAR); *COLOR,URINE YELLOW (YELLOW); *KETONES,URINE NEGATIVE (NEGATIVE); *PROTEIN,URINE NEGATIVE (NEGATIVE); *UROBILINOGEN,URINE 0.2 E.U./dl (NORMAL); LEUKOCYTE ESTERASE ,URINE NEGATIVE (NEGATIVE); NITRITE, URINE NEGATIVE (NEGATIVE); UGLUCOSE NEGATIVE (NEGATIVE)
[2024-01-11] MEDS ORDERED: LITHIUM CARBONATE 150 MG CAPSULE PO SCH (13:00)
[2024-01-11] MEDS ORDERED: INSULIN REGULAR, HUMAN 300 UNITS/3 ML VIAL SQ PRN (13:45)
[2024-01-11] MEDS ORDERED: INSULIN REGULAR, HUMAN 300 UNIT/3 ML VIAL SQ PRN (13:45)
[2024-01-11] MEDS ORDERED: DEXTROSE 50% 50 ML DISP.SYRIN IV PRN (13:45)
[2024-01-11] MEDS: BLOOD SUGAR DIAGNOSTIC 1 EACH STRIP VI SCH (15:43)
[2024-01-11] MEDS: OLANZAPINE 5 MG TABLET PO SCH ×2 (16:17→22:13)
[2024-01-11 22:40] VITALS: BP 117/43; TEMP 97.9; O2SAT 97
[2024-01-11] MEDS: IV NS 1000 ML 1,000 ML IV PRN (22:49)
[2024-01-11] MEDS: CLONAZEPAM 0.5 MG TABLET PO PRN (22:49)
[2024-01-12] VITALS: BP 130/59; TEMP 98.4; O2SAT 97
[2024-01-12 04:00] VITALS: BP 120/57; TEMP 99.1; O2SAT 97
[2024-01-12] MEDS ORDERED: CLONAZEPAM 0.5 MG TABLET PO PRN (05:45)
[2024-01-12] MEDS: LEVOTHYROXINE SODIUM 75 MCG TABLET PO SCH (06:46)
[2024-01-12 07:25] LABS: BASOPHILS # (AUTO) 0.1 K/UL (0.0-0.2); BASOPHILS % (AUTO) 1.1 % (0.0-2.0); EOSINOPHILS # (AUTO) 0.4 K/uL (0.0-0.7); EOSINOPHILS % (AUTO) 3.7 % (0.0-7.0); HEMATOCRIT 36.7 % (31.2-41.9); HEMOGLOBIN 11.8 g/dL (10.9-14.3); LYMPHOCYTES # (AUTO) 2.7 K/uL (0.8-4.8); LYMPHOCYTES % (AUTO) 28.1 % (20.5-51.5); MEAN CORPUSCULAR HEMOGLOBIN 31.9 uug (24.7-32.8); MEAN CORPUSCULAR HGB CONC 32 g/dL (32.3-35.6); MEAN CORPUSCULAR VOLUME 99.3 fL (75.5-95.3); MONOCYTES # (AUTO) 0.8 K/uL (0.1-1.30); MONOCYTES % (AUTO) 8.1 % (0.0-11.0); NEUTROPHILS # (AUTO) 5.7 K/uL (1.8-8.9); PLATELET COUNT (AUTO) 228 K/uL (179-408); RED BLOOD CELL COUNT(AUTO) 3.69 MIL/uL (3.63-4.92); RED CELL DISTRIBUTION WIDTH 13.8 % (12.3-17.7); WHITE BLOOD COUNT (AUTO) 9.6 K/uL (3.8-11.8)
[2024-01-12 07:31] LABS: CALCIUM 8.8 mg/dL (8.5-10.1); CARBON DIOXIDE 20 mmol/L (21-32); CHLORIDE 111 mmol/L (98-107); CREATININE 1.4 mg/dL (0.6-1.3); GLUCOSE 145 mg/dL (74-106); MAGNESIUM 2.4 mg/dL (1.8-2.4); PHOSPHOROUS 4.2 mg/dL (2.5-4.9); POTASSIUM 4.7 mmol/L (3.5-5.1); SODIUM SERUM 142 mmol/L (136-145); UREA NITROGEN, BLOOD 46 mg/dL (7-18)
[2024-01-12 07:39] VITALS: BP 124/49; TEMP 98.3; O2SAT 97
[2024-01-12 07:57] LABS: DIFFERENTIAL COMMENT 1
[2024-01-12] MEDS ORDERED: LITHIUM CARBONATE 150 MG CAPSULE PO SCH (09:00)
[2024-01-12] MEDS ORDERED: OLANZAPINE 5 MG TABLET PO SCH ×2 (09:00→21:00)
[2024-01-12] MEDS ORDERED: LEVOTHYROXINE SODIUM 100 MCG TABLET PO SCH (09:00)
[2024-01-12] MEDS ORDERED: MAGNESIUM OXIDE 250 MG TABLET PO SCH ×2 (09:00)
[2024-01-12] MEDS ORDERED: VANCOMYCIN HCL 750 MG in IV DEXTROSE 5% 250 ML IV ONE (09:00)
[2024-01-12] MEDS ORDERED: CARBAMAZEPINE 200 MG TABLET PO SCH ×2 (09:00→21:00)
[2024-01-12 11:31] VITALS: BP 130/55; TEMP 97.8; O2SAT 95
== END 2024-01-12 12:15 | disposition home or self-care (01) | DRG 683 ==
LOC: ER 11:02 → TELE3 20:58
PROVIDERS: ADMIT Internal Medicine; ATTEND Internal Medicine
DX: N17.0 Acute kidney failure with tubular necrosis (principal); I69.351 Hemiplegia and hemiparesis following cerebral infarction affecting right dominant side; E86.0 Dehydration; R53.1 Weakness; E11.65 Type 2 diabetes mellitus with hyperglycemia; E11.42 Type 2 diabetes mellitus with diabetic polyneuropathy; E03.9 Hypothyroidism, unspecified; E78.5 Hyperlipidemia, unspecified; F42.9 Obsessive-compulsive disorder, unspecified; Z79.84 Long term (current) use of oral hypoglycemic drugs; Z79.4 Long term (current) use of insulin; Z79.890 Hormone replacement therapy; E11.22 Type 2 diabetes mellitus with diabetic chronic kidney disease; R13.11 Dysphagia, oral phase; G93.89 Other specified disorders of brain; I12.9 Hypertensive chronic kidney disease with stage 1 through stage 4 chronic kidney disease, or unspecified chronic kidney disease; N18.9 Chronic kidney disease, unspecified; Z87.891 Personal history of nicotine dependence; Z79.899 Other long term (current) drug therapy; Z88.8 Allergy status to other drugs, medicaments and biological substances; F31.9 Bipolar disorder, unspecified; F41.9 Anxiety disorder, unspecified
CPT/HCPCS: 36415; 70030-TC; 70450; 71045; 83735; 84100; 84443; 84484; 85025; 93005; A4606; A4663; G0378; J1815; J7040

== ENCOUNTER 2024-02-03 08:21 | Inpatient (IN) | payer MEDICARE, BC ==
[~2024-02-03] VITALS: Ht 152.4 cm; Wt 53.1 kg
[~2024-02-03 08:21] MED LIST changes: -METF-440 PO
[2024-02-03 09:16] LABS: BASOPHILS # (AUTO) 0.1 K/UL (0.0-0.2); BASOPHILS % (AUTO) 1.3 % (0.0-2.0); EOSINOPHILS # (AUTO) 0.2 K/uL (0.0-0.7); HEMATOCRIT 38.6 % (31.2-41.9); HEMOGLOBIN 12.5 g/dL (10.9-14.3); LYMPHOCYTES # (AUTO) 2.7 K/uL (0.8-4.8); LYMPHOCYTES % (AUTO) 24.6 % (20.5-51.5); MEAN CORPUSCULAR HGB CONC 32 g/dL (32.3-35.6); MONOCYTES # (AUTO) 0.8 K/uL (0.1-1.30); MONOCYTES % (AUTO) 7.1 % (0.0-11.0); NEUTROPHILS # (AUTO) 7.2 K/uL (1.8-8.9); PLATELET COUNT (AUTO) 233 K/uL (179-408); RED BLOOD CELL COUNT(AUTO) 4.02 MIL/uL (3.63-4.92); RED CELL DISTRIBUTION WIDTH 13.4 % (12.3-17.7)
[2024-02-03 09:18] LABS: *BILIRUBIN,URIN NEGATIVE (NEGATIVE); *CLARITY,URINE CLEAR (CLEAR); *COLOR,URINE YELLOW (YELLOW); *KETONES,URINE NEGATIVE (NEGATIVE); *PROTEIN,URINE TRACE (NEGATIVE); *UROBILINOGEN,URINE 0.2 E.U./dl (NORMAL); LEUKOCYTE ESTERASE ,URINE TRACE (NEGATIVE); NITRITE, URINE NEGATIVE (NEGATIVE); UGLUCOSE NEGATIVE (NEGATIVE)
[2024-02-03 09:22] LABS: *BLOOD, URINE TRACE (NEGATIVE)
[2024-02-03 09:23] LABS: DIFFERENTIAL COMMENT 1
[2024-02-03 09:28] LABS: CALCIUM 9.5 mg/dL (8.5-10.1); CARBON DIOXIDE 23 mmol/L (21-32); CHLORIDE 106 mmol/L (98-107); CREATININE 1.6 mg/dL (0.6-1.3); GLUCOSE 191 mg/dL (74-106); POTASSIUM 4.5 mmol/L (3.5-5.1); SODIUM SERUM 139 mmol/L (136-145); UREA NITROGEN, BLOOD 46 mg/dL (7-18)
[2024-02-03 09:56] LABS: BACTERIA,URINE FEW /HPF (NONE SEEN); SQUAMOUS EPITHELIAL CELL,UR FEW /HPF (NONE SEEN)
[2024-02-03 10:07] LABS: MAGNESIUM 2.4 mg/dL (1.8-2.4)
[2024-02-03] MEDS ORDERED: CEFTRIAXONE /D5W 50ML IVPB **ER PYXIS IV ONE (11:40)
[2024-02-03] MEDS: IV NS 1000 ML 1,000 ML IV ONE (11:52)
[2024-02-03] MEDS: CEFTRIAXONE 1 G in IV DEXTROSE 5% 50 ML IV ONE (11:52)
[2024-02-03] MEDS ORDERED: SULF1TAB48 PO (12:28)
[2024-02-03] MEDS ORDERED: REMEDY ESSENTIAL ZINC PASTE 113 GM TP PRN (14:00)
[2024-02-03] MEDS ORDERED: DEXTROSE 50% 50 ML DISP.SYRIN IV PRN (14:00)
[2024-02-03] MEDS ORDERED: MAGNESIUM HYDROXIDE 30 ML LIQUID UDC PO PRN (14:00)
[2024-02-03] MEDS ORDERED: ONDANSETRON 4 MG/2 ML VIAL IV PRN (14:00)
[2024-02-03] MEDS ORDERED: ACETAMINOPHEN 325 MG TABLET PO PRN (14:00)
[2024-02-03] MEDS ORDERED: ENOXAPARIN SODIUM 40 MG/0.4 ML DISP.SYRIN SQ SCH (14:00)
[2024-02-03] MEDS: ENOXAPARIN SODIUM 30 MG/0.3 ML DISP.SYRIN SUBCUT SCH (15:01)
[2024-02-03] MEDS ORDERED: RISP0.2515 PO (15:05)
[2024-02-03] MEDS ORDERED: METO25TA6 PO (15:05)
[2024-02-03] MEDS ORDERED: LEVO75TA7 PO (15:05)
[2024-02-03] MEDS ORDERED: LITH300C2 PO (15:05)
[2024-02-03] MEDS ORDERED: METF-494 PO (15:05)
[2024-02-03] MEDS ORDERED: ATOR10TA PO (15:06)
[2024-02-03] MEDS: IV 1/2NS 1000 ML 1,000 ML IV PRN (15:21)
[2024-02-03 16:03] VITALS: BP 132/57; TEMP 97.5; O2SAT 100
[2024-02-03] MEDS: METOPROLOL TARTRATE 25 MG TABLET PO SCH (16:54)
[2024-02-03] MEDS: BLOOD SUGAR DIAGNOSTIC 1 EACH STRIP VI SCH (16:54)
[2024-02-03] MEDS: LEVOTHYROXINE SODIUM 75 MCG TABLET PO SCH (16:55)
[2024-02-03] MEDS: CLONAZEPAM 0.5 MG TABLET PO SCH (16:56)
[2024-02-03] MEDS: CARBAMAZEPINE 200 MG TABLET PO SCH (17:00)
[2024-02-03] MEDS: risperiDONE 0.25 MG TABLET PO SCH (17:00)
[2024-02-03] MEDS: METFORMIN XR 500 MG TAB.SR.24H PO SCH (17:17)
[2024-02-03] MEDS: OLANZAPINE 5 MG TABLET PO SCH (17:17)
[2024-02-03] MEDS: INSULIN REGULAR, HUMAN 300 UNIT/3 ML VIAL SQ PRN (17:21)
[2024-02-03] MEDS: ATORVASTATIN 10 MG TABLET PO SCH (20:06)
[2024-02-03] MEDS: LITHIUM CARBONATE 300 MG CAPSULE PO SCH (20:06)
[2024-02-03] MEDS: INSULIN REGULAR, HUMAN 300 UNITS/3 ML VIAL SQ PRN (20:18)
[2024-02-03 22:00] VITALS: BP 125/66; TEMP 97.2; O2SAT 97
[2024-02-04 06:04] VITALS: BP 143/55; TEMP 97.9; O2SAT 100
[2024-02-04 07:02] LABS: BASOPHILS # (AUTO) 0.1 K/UL (0.0-0.2); BASOPHILS % (AUTO) 1.2 % (0.0-2.0); EOSINOPHILS # (AUTO) 0.2 K/uL (0.0-0.7); EOSINOPHILS % (AUTO) 2.2 % (0.0-7.0); HEMATOCRIT 35.4 % (31.2-41.9); HEMOGLOBIN 11.9 g/dL (10.9-14.3); LYMPHOCYTES # (AUTO) 2.8 K/uL (0.8-4.8); LYMPHOCYTES % (AUTO) 27.4 % (20.5-51.5); MEAN CORPUSCULAR HGB CONC 34 g/dL (32.3-35.6); MEAN CORPUSCULAR VOLUME 95.4 fL (75.5-95.3); MONOCYTES # (AUTO) 0.6 K/uL (0.1-1.30); NEUTROPHILS # (AUTO) 6.4 K/uL (1.8-8.9); NEUTROPHILS % (AUTO) 63.2 % (38.5-71.5); PLATELET COUNT (AUTO) 208 K/uL (179-408); RED BLOOD CELL COUNT(AUTO) 3.71 MIL/uL (3.63-4.92); RED CELL DISTRIBUTION WIDTH 13.1 % (12.3-17.7); WHITE BLOOD COUNT (AUTO) 10.1 K/uL (3.8-11.8)
[2024-02-04 07:12] LABS: DIFFERENTIAL COMMENT 1
[2024-02-04 07:16] LABS: CALCIUM 8.9 mg/dL (8.5-10.1); CREATININE 1.2 mg/dL (0.6-1.3); PHOSPHOROUS 3.7 mg/dL (2.5-4.9); POTASSIUM 4.7 mmol/L (3.5-5.1)
[2024-02-04 12:00] VITALS: BP 149/59; TEMP 97.6; O2SAT 97
[2024-02-04] MEDS: CEFTRIAXONE 1 G in IV DEXTROSE 5% 50 ML IV SCH (12:13)
[2024-02-04 16:00] VITALS: BP 138/58; TEMP 98.2; O2SAT 97
[2024-02-05] MEDS ORDERED: OLAN5TAB70 PO (09:50)
[2024-02-05] MEDS ORDERED: FLUV100C2 PO (09:50)
[2024-02-05] MEDS ORDERED: LITH300T3 PO (09:50)
== END 2024-02-04 17:40 | DRG 689 ==
LOC: ER 08:21 → MEDSURG3 13:47
PROVIDERS: ADMIT Internal Medicine; ATTEND Internal Medicine
DX: N39.0 Urinary tract infection, site not specified (principal); N17.0 Acute kidney failure with tubular necrosis; F31.5 Bipolar disorder, current episode depressed, severe, with psychotic features; E86.0 Dehydration; F41.1 Generalized anxiety disorder; I12.9 Hypertensive chronic kidney disease with stage 1 through stage 4 chronic kidney disease, or unspecified chronic kidney disease; N18.9 Chronic kidney disease, unspecified; F42.9 Obsessive-compulsive disorder, unspecified; E11.42 Type 2 diabetes mellitus with diabetic polyneuropathy; E78.5 Hyperlipidemia, unspecified; E03.9 Hypothyroidism, unspecified; E11.22 Type 2 diabetes mellitus with diabetic chronic kidney disease; F29 Unspecified psychosis not due to a substance or known physiological condition; Z87.891 Personal history of nicotine dependence; Z95.1 Presence of aortocoronary bypass graft; Z79.84 Long term (current) use of oral hypoglycemic drugs; Z79.890 Hormone replacement therapy; Z88.8 Allergy status to other drugs, medicaments and biological substances; Z79.899 Other long term (current) drug therapy; Z79.4 Long term (current) use of insulin
CPT/HCPCS: 36415; 70030-TC; 83735; 84100; 85025; G0378; J0696; J1650; J1815; J7040; J7042

== ENCOUNTER 2024-02-04 18:30 | Inpatient (IN) | payer MEDICARE, BC ==
[~2024-02-04] VITALS: Ht 154.9 cm; Wt 51.3 kg
[~2024-02-04 18:30] MED LIST changes: -ACET-3315 PO; +ATOR10TA PO; -ATOR20TA PO; -FLUV100T3 PO; -GLIM1TAB PO; -INSU100V28 SQ; -LEVO100T PO; +LEVO75TA7 PO; -LITH150C PO; +LITH300C2 PO; -MAGN250T37 PO; -MELA3TAB41 PO; +METF-494 PO; +METO25TA6 PO; -NICO-671 TP; -OMEG10002 PO; +RISP0.2515 PO
[2024-02-04] MEDS ORDERED: MAG HYDROX/AL HYDROX/SIMETH 30 ML LIQUID UDC PO PRN (20:00)
[2024-02-04 20:06] VITALS: BP 166/70; TEMP 98.4; O2SAT 99
[2024-02-04] MEDS: CLONAZEPAM 0.5 MG TABLET PO PRN (23:49)
[2024-02-05] MEDS: TEMAZEPAM 7.5 MG CAPSULE PO PRN (00:58)
[2024-02-05 07:51] VITALS: BP 146/91; TEMP 98.3; O2SAT 98
[2024-02-05 08:02] LABS: ALANINE AMINOTRANSFERASE 24 U/L (14-59); ALBUMIN 3.8 g/dL (3.4-5.0); ALKALINE PHOSPHATASE 66 U/L (50-136); ASPARTATE AMINOTRANSFERASE 6 U/L (15-37); BILIRUBIN,TOTAL 0.2 mg/dL (0.2-1.0); CALCIUM 9.3 mg/dL (8.5-10.1); CARBON DIOXIDE 19 mmol/L (21-32); CHLORIDE 109 mmol/L (98-107); CREATININE 1.5 mg/dL (0.6-1.3); GLUCOSE 200 mg/dL (74-106); POTASSIUM 4.5 mmol/L (3.5-5.1); SODIUM SERUM 141 mmol/L (136-145); TOTAL PROTEIN, SERUM 6.9 g/dL (6.4-8.2); UREA NITROGEN, BLOOD 33 mg/dL (7-18)
[2024-02-05] MEDS ORDERED: DEXTROSE 50% 50 ML DISP.SYRIN IV PRN (09:15)
[2024-02-05] MEDS: LEVOTHYROXINE SODIUM 75 MCG TABLET PO SCH (09:41)
[2024-02-05] MEDS: FLUVOXAMINE MALEATE 50 MG TABLET PO SCH (09:41)
[2024-02-05] MEDS: METOPROLOL TARTRATE 25 MG TABLET PO SCH (09:42)
[2024-02-05] MEDS ORDERED: OLAN5TAB70 PO (09:50)
[2024-02-05] MEDS ORDERED: FLUV100C2 PO (09:50)
[2024-02-05] MEDS ORDERED: LITH300T3 PO (09:50)
[2024-02-05] MEDS: METFORMIN XR 500 MG TAB.SR.24H PO SCH (10:14)
[2024-02-05] MEDS: BLOOD SUGAR DIAGNOSTIC 1 EACH STRIP VI SCH (11:41)
[2024-02-05] MEDS: INSULIN REGULAR, HUMAN 300 UNITS/3 ML VIAL SQ PRN (12:11)
[2024-02-05 16:18] VITALS: BP 116/56; TEMP 98.2; O2SAT 98
[2024-02-05] MEDS: CARBAMAZEPINE 200 MG TABLET PO SCH (17:16)
[2024-02-05 20:05] VITALS: BP 140/88; TEMP 98.1; O2SAT 98
[2024-02-05] MEDS: LITHIUM CARBONATE 300 MG CAPSULE PO SCH (20:26)
[2024-02-05] MEDS: ATORVASTATIN 10 MG TABLET PO SCH (20:26)
[2024-02-05] MEDS: risperiDONE 0.5 MG TABLET PO SCH (20:26)
[2024-02-06 07:53] VITALS: BP 174/73; TEMP 98.3; O2SAT 98
[2024-02-06] MEDS: CLONAZEPAM 1 MG TABLET PO PRN (08:18)
[2024-02-06 10:30] VITALS: BP 109/45; O2SAT 99
[2024-02-06 16:44] VITALS: BP 133/58; TEMP 98.2; O2SAT 98
[2024-02-06 20:15] VITALS: BP 109/48; TEMP 98.2; O2SAT 98
[2024-02-07 07:49] VITALS: BP 186/61; TEMP 98.1; O2SAT 98
[2024-02-07 09:59] VITALS: BP 110/42
[2024-02-07] MEDS: AMLODIPINE 5 MG TABLET PO SCH (10:00)
[2024-02-07] MEDS: risperiDONE 0.25 MG TABLET PO PRN (11:06)
[2024-02-07 15:54] VITALS: BP 110/48; TEMP 98; O2SAT 97
[2024-02-07 20:00] VITALS: BP 136/74; TEMP 97.9; O2SAT 96
[2024-02-08 08:07] LABS: BASOPHILS # (AUTO) 0.1 K/UL (0.0-0.2); BASOPHILS % (AUTO) 1.1 % (0.0-2.0); EOSINOPHILS # (AUTO) 0.1 K/uL (0.0-0.7); EOSINOPHILS % (AUTO) 1.4 % (0.0-7.0); HEMATOCRIT 36.9 % (31.2-41.9); HEMOGLOBIN 12.4 g/dL (10.9-14.3); LYMPHOCYTES # (AUTO) 2.4 K/uL (0.8-4.8); LYMPHOCYTES % (AUTO) 25.2 % (20.5-51.5); MEAN CORPUSCULAR HEMOGLOBIN 31.8 uug (24.7-32.8); MEAN CORPUSCULAR HGB CONC 34 g/dL (32.3-35.6); MEAN CORPUSCULAR VOLUME 94.9 fL (75.5-95.3); MONOCYTES # (AUTO) 0.6 K/uL (0.1-1.30); MONOCYTES % (AUTO) 6.4 % (0.0-11.0); NEUTROPHILS # (AUTO) 6.2 K/uL (1.8-8.9); NEUTROPHILS % (AUTO) 65.9 % (38.5-71.5); PLATELET COUNT (AUTO) 236 K/uL (179-408); RED BLOOD CELL COUNT(AUTO) 3.89 MIL/uL (3.63-4.92); RED CELL DISTRIBUTION WIDTH 13.1 % (12.3-17.7); WHITE BLOOD COUNT (AUTO) 9.4 K/uL (3.8-11.8)
[2024-02-08 08:13] LABS: DIFFERENTIAL COMMENT 1
[2024-02-08] MEDS: INSULIN REGULAR, HUMAN 300 UNIT/3 ML VIAL SQ PRN (08:16)
[2024-02-08 08:17] LABS: ALANINE AMINOTRANSFERASE 30 U/L (14-59); ALBUMIN 4.2 g/dL (3.4-5.0); ALKALINE PHOSPHATASE 64 U/L (50-136); ASPARTATE AMINOTRANSFERASE 5 U/L (15-37); BILIRUBIN,TOTAL 0.4 mg/dL (0.2-1.0); CALCIUM 9.4 mg/dL (8.5-10.1); CARBON DIOXIDE 22 mmol/L (21-32); CHLORIDE 104 mmol/L (98-107); CREATINE KINASE, TOTAL 42 U/L (26-192); CREATININE 1.6 mg/dL (0.6-1.3); GLUCOSE 134 mg/dL (74-106); MAGNESIUM 2.1 mg/dL (1.8-2.4); PHOSPHOROUS 4.4 mg/dL (2.5-4.9); SODIUM SERUM 138 mmol/L (136-145); TOTAL PROTEIN, SERUM 7.3 g/dL (6.4-8.2); UREA NITROGEN, BLOOD 43 mg/dL (7-18)
[2024-02-08 08:29] VITALS: BP 131/63; TEMP 98; O2SAT 100
[2024-02-08 15:27] VITALS: BP 136/69; TEMP 98.2; O2SAT 100
[2024-02-08 20:20] VITALS: BP 130/70; TEMP 98.1; O2SAT 99
[2024-02-09 06:10] LABS: PTH, INTACT 41 pg/mL (15-65)
[2024-02-09 07:55] VITALS: BP 92/54; TEMP 98; O2SAT 98
[2024-02-09] MEDS: GLIMEPIRIDE 2 MG TABLET PO SCH (08:05)
[2024-02-09 14:08] LABS: A/G RATIO 1.3 (0.7-1.7); ALBUMIN 3.7 g/dL (2.9-4.4); ALPHA-1-GLOBULIN 0.2 g/dL (0.0-0.4); ALPHA-2-GLOBULIN 0.9 g/dL (0.4-1.0); BETA GLOBULIN 1.1 g/dL (0.7-1.3); GAMMA GLOBULIN 0.6 g/dL (0.4-1.8); GLOBULIN, TOTAL 2.9 g/dL (2.2-3.9); M-SPIKE Not Observed g/dL (Not Observed)
[2024-02-09 15:20] VITALS: BP 90/83; TEMP 98; O2SAT 98
[2024-02-09 20:16] VITALS: BP 141/51; TEMP 98.1; O2SAT 99
[2024-02-10 07:50] VITALS: BP 169/78; TEMP 98.6; O2SAT 97
[2024-02-10 16:00] VITALS: BP 126/64; TEMP 97.6; O2SAT 97
[2024-02-10 20:00] VITALS: BP 111/53; TEMP 97.6; O2SAT 100
[2024-02-11 08:06] VITALS: BP 144/71; TEMP 98.2; O2SAT 98
[2024-02-11 15:26] VITALS: BP 130/73; TEMP 98; O2SAT 98
[2024-02-11 20:00] VITALS: BP 115/68; TEMP 97.8; O2SAT 99
[2024-02-12 08:28] VITALS: BP 136/86; TEMP 98.2; O2SAT 97
[2024-02-12] MEDS: ACETAMINOPHEN 325 MG TABLET PO PRN (12:33)
[2024-02-12] MEDS: NICOTINE 14 MG/24HR PATCH TD SCH (15:58)
[2024-02-12 16:54] VITALS: BP 144/72; TEMP 98.3; O2SAT 99
[2024-02-12 17:07] VITALS: BP 102/65; TEMP 98.1; O2SAT 97
[2024-02-12 22:08] VITALS: BP 131/56; TEMP 98; O2SAT 98
[2024-02-13 08:38] VITALS: BP 112/64; TEMP 98.1; O2SAT 97
[2024-02-13 16:02] VITALS: BP 143/84; TEMP 98; O2SAT 97
[2024-02-13 20:14] VITALS: BP 136/71; TEMP 98.1; O2SAT 96
[2024-02-14 07:51] VITALS: BP 136/62; TEMP 98; O2SAT 98
[2024-02-14 10:08] LABS: *BILIRUBIN,URIN NEGATIVE (NEGATIVE); *BLOOD, URINE NEGATIVE (NEGATIVE); *CLARITY,URINE CLEAR (CLEAR); *COLOR,URINE YELLOW (YELLOW); *KETONES,URINE NEGATIVE (NEGATIVE); *PROTEIN,URINE NEGATIVE (NEGATIVE); *UROBILINOGEN,URINE 0.2 E.U./dl (NORMAL); LEUKOCYTE ESTERASE ,URINE 1+ (NEGATIVE); NITRITE, URINE NEGATIVE (NEGATIVE); UGLUCOSE NEGATIVE (NEGATIVE)
[2024-02-14 10:19] LABS: BACTERIA,URINE MODERATE /HPF (NONE SEEN); SQUAMOUS EPITHELIAL CELL,UR MODERATE /HPF (NONE SEEN)
[2024-02-14 16:02] VITALS: BP 103/51; TEMP 98; O2SAT 99
[2024-02-14 20:35] VITALS: BP 147/64; TEMP 98.1; O2SAT 99
[2024-02-15 08:19] LABS: BASOPHILS # (AUTO) 0.1 K/UL (0.0-0.2); BASOPHILS % (AUTO) 0.5 % (0.0-2.0); EOSINOPHILS # (AUTO) 0.2 K/uL (0.0-0.7); EOSINOPHILS % (AUTO) 1.7 % (0.0-7.0); HEMATOCRIT 37.3 % (31.2-41.9); LYMPHOCYTES # (AUTO) 2.2 K/uL (0.8-4.8); LYMPHOCYTES % (AUTO) 22.5 % (20.5-51.5); MEAN CORPUSCULAR HEMOGLOBIN 30.6 uug (24.7-32.8); MEAN CORPUSCULAR HGB CONC 32 g/dL (32.3-35.6); MEAN CORPUSCULAR VOLUME 95.2 fL (75.5-95.3); MONOCYTES # (AUTO) 0.8 K/uL (0.1-1.30); MONOCYTES % (AUTO) 7.9 % (0.0-11.0); NEUTROPHILS # (AUTO) 6.5 K/uL (1.8-8.9); NEUTROPHILS % (AUTO) 67.4 % (38.5-71.5); PLATELET COUNT (AUTO) 248 K/uL (179-408); RED BLOOD CELL COUNT(AUTO) 3.92 MIL/uL (3.63-4.92); RED CELL DISTRIBUTION WIDTH 13.1 % (12.3-17.7); WHITE BLOOD COUNT (AUTO) 9.6 K/uL (3.8-11.8)
[2024-02-15 08:31] LABS: CALCIUM 10.1 mg/dL (8.5-10.1); CARBON DIOXIDE 26 mmol/L (21-32); CHLORIDE 106 mmol/L (98-107); CREATININE 1.5 mg/dL (0.6-1.3); GLUCOSE 140 mg/dL (74-106); POTASSIUM 4.3 mmol/L (3.5-5.1); SODIUM SERUM 143 mmol/L (136-145); UREA NITROGEN, BLOOD 30 mg/dL (7-18)
[2024-02-15 08:45] VITALS: BP 120/66; TEMP 98.2; O2SAT 96
[2024-02-15] MEDS: MAGNESIUM OXIDE 400 MG TABLET PO SCH (08:54)
[2024-02-15] MEDS ORDERED: CEphaleXIN 500 MG CAPSULE PO SCH (14:00)
[2024-02-15] MEDS: CEphaleXIN 250 MG CAPSULE PO SCH (14:15)
[2024-02-15 15:51] VITALS: BP 153/58; TEMP 98; O2SAT 96
[2024-02-15 20:09] VITALS: BP 153/77; TEMP 98.1; O2SAT 100
[2024-02-15] MEDS: MELATONIN 3 MG TABLET PO SCH (20:49)
[2024-02-16 07:42] VITALS: BP 143/70; TEMP 98; O2SAT 98
[2024-02-16 10:10] LABS: *ANTI-SCLERODERMA-70 AB <0.2 AI (0.0-0.9); *RNP ANTIBODIES <0.2 AI (0.0-0.9); *SJOGREN'S ANTI-SS-A <0.2 AI (0.0-0.9); *SJOGREN'S ANTI-SS-B <0.2 AI (0.0-0.9); *SMITH ANTIBODIES <0.2 AI (0.0-0.9); ANTI-DNA(DS) AB, QN <1 IU/mL (0-9); ANTI-NUCLEAR AB DIRECT Negative (Negative)
[2024-02-16] MEDS: GLUCERNA SHAKE 237 ML CAN PO SCH (12:45)
[2024-02-16] MEDS: DIVALPROEX SPRINKLE 125 MG CAP.SPRINK PO SCH (14:20)
[2024-02-16 15:44] VITALS: BP 152/77; TEMP 98; O2SAT 99
[2024-02-16 20:00] VITALS: BP 132/73; TEMP 98.2; O2SAT 99
[2024-02-17 07:59] VITALS: BP 126/78; TEMP 98; O2SAT 99
[2024-02-17 11:04] LABS: BASOPHILS # (AUTO) 0.2 K/UL (0.0-0.2); BASOPHILS % (AUTO) 1.6 % (0.0-2.0); EOSINOPHILS # (AUTO) 0.6 K/uL (0.0-0.7); EOSINOPHILS % (AUTO) 6.7 % (0.0-7.0); HEMATOCRIT 38.9 % (31.2-41.9); HEMOGLOBIN 12.4 g/dL (10.9-14.3); LYMPHOCYTES # (AUTO) 1.3 K/uL (0.8-4.8); LYMPHOCYTES % (AUTO) 13.6 % (20.5-51.5); MEAN CORPUSCULAR HEMOGLOBIN 30.5 uug (24.7-32.8); MEAN CORPUSCULAR HGB CONC 32 g/dL (32.3-35.6); MEAN CORPUSCULAR VOLUME 95.3 fL (75.5-95.3); MONOCYTES # (AUTO) 0.5 K/uL (0.1-1.30); MONOCYTES % (AUTO) 5.2 % (0.0-11.0); NEUTROPHILS % (AUTO) 72.9 % (38.5-71.5); PLATELET COUNT (AUTO) 278 K/uL (179-408); RED BLOOD CELL COUNT(AUTO) 4.08 MIL/uL (3.63-4.92); RED CELL DISTRIBUTION WIDTH 13.2 % (12.3-17.7); WHITE BLOOD COUNT (AUTO) 9.6 K/uL (3.8-11.8)
[2024-02-17 11:09] LABS: DIFFERENTIAL COMMENT 1
[2024-02-17 11:19] LABS: AMMONIA < 10 umol/L (11-32)
[2024-02-17 11:47] LABS: ALANINE AMINOTRANSFERASE 34 U/L (14-59); ALBUMIN 3.8 g/dL (3.4-5.0); ALKALINE PHOSPHATASE 68 U/L (50-136); BILIRUBIN,TOTAL 0.4 mg/dL (0.2-1.0); CALCIUM 9.5 mg/dL (8.5-10.1); CARBON DIOXIDE 25 mmol/L (21-32); CHLORIDE 102 mmol/L (98-107); CREATININE 1.8 mg/dL (0.6-1.3); GLUCOSE 263 mg/dL (74-106); MAGNESIUM 2.6 mg/dL (1.8-2.4); POTASSIUM 4.3 mmol/L (3.5-5.1); SODIUM SERUM 139 mmol/L (136-145); TOTAL PROTEIN, SERUM 7.1 g/dL (6.4-8.2); UREA NITROGEN, BLOOD 29 mg/dL (7-18)
[2024-02-17 12:05] LABS: ASPARTATE AMINOTRANSFERASE 13 U/L (15-37)
[2024-02-17] MEDS: CLONAZEPAM 0.5 MG TABLET PO SCH (14:32)
[2024-02-17 15:20] VITALS: BP 116/69; TEMP 98; O2SAT 98
[2024-02-17 20:00] VITALS: BP 115/69; TEMP 98; O2SAT 98
[2024-02-17] MEDS: OLANZAPINE ZYDIS 5 MG TAB.RAPDIS PO SCH (21:46)
[2024-02-18 09:47] VITALS: BP 128/82; TEMP 98; O2SAT 99
[2024-02-18] MEDS ORDERED: DEXTROSE 50% 50 ML DISP.SYRIN IV PRN (10:15)
[2024-02-18] MEDS: BLOOD SUGAR DIAGNOSTIC 1 EACH STRIP VI SCH (11:40)
[2024-02-18] MEDS: INSULIN REGULAR, HUMAN 300 UNIT/3 ML VIAL SQ PRN (12:24)
[2024-02-18 16:44] VITALS: BP 141/77; TEMP 98.4; O2SAT 97
[2024-02-18 20:00] VITALS: BP 150/87; TEMP 98.2; O2SAT 100
[2024-02-19 08:23] VITALS: BP 92/46; TEMP 97.6; O2SAT 94
[2024-02-19] MEDS: GLUCERNA SHAKE 237 ML CAN PO SCH (17:14)
[2024-02-19 17:41] VITALS: BP 103/60; TEMP 97.7; O2SAT 95
[2024-02-19 20:00] VITALS: BP 100/61; TEMP 98; O2SAT 93
[2024-02-20 07:57] VITALS: BP 132/97; TEMP 98.4; O2SAT 96
[2024-02-20 16:45] VITALS: BP 124/57; TEMP 98.2; O2SAT 97
[2024-02-20 20:40] VITALS: BP 110/71; TEMP 98.1; O2SAT 100
[2024-02-21 10:16] VITALS: BP 125/55; TEMP 97.8; O2SAT 97
[2024-02-21] MEDS: LORAZEPAM 2 MG/1 ML VIAL IM ONE (16:55)
[2024-02-21 19:53] VITALS: BP 118/56; TEMP 97.9; O2SAT 95
[2024-02-22] MEDS: MAGNESIUM HYDROXIDE 30 ML LIQUID UDC PO PRN (05:00)
[2024-02-22 07:57] LABS: BASOPHILS % (AUTO) 0.4 % (0.0-2.0); EOSINOPHILS # (AUTO) 0.3 K/uL (0.0-0.7); EOSINOPHILS % (AUTO) 2.8 % (0.0-7.0); LYMPHOCYTES # (AUTO) 2.5 K/uL (0.8-4.8); LYMPHOCYTES % (AUTO) 24.2 % (20.5-51.5); MEAN CORPUSCULAR HEMOGLOBIN 30.9 uug (24.7-32.8); MEAN CORPUSCULAR HGB CONC 33 g/dL (32.3-35.6); MEAN CORPUSCULAR VOLUME 94.8 fL (75.5-95.3); MONOCYTES # (AUTO) 1.3 K/uL (0.1-1.30); NEUTROPHILS # (AUTO) 6.3 K/uL (1.8-8.9); NEUTROPHILS % (AUTO) 60.6 % (38.5-71.5); PLATELET COUNT (AUTO) 287 K/uL (179-408); RED BLOOD CELL COUNT(AUTO) 4.22 MIL/uL (3.63-4.92); RED CELL DISTRIBUTION WIDTH 13.1 % (12.3-17.7); WHITE BLOOD COUNT (AUTO) 10.5 K/uL (3.8-11.8)
[2024-02-22 08:08] VITALS: BP 128/74; TEMP 98; O2SAT 98
[2024-02-22 08:19] LABS: ALANINE AMINOTRANSFERASE 37 U/L (14-59); ALBUMIN 3.9 g/dL (3.4-5.0); ALKALINE PHOSPHATASE 70 U/L (50-136); ASPARTATE AMINOTRANSFERASE 13 U/L (15-37); BILIRUBIN,TOTAL 0.5 mg/dL (0.2-1.0); CALCIUM 9.7 mg/dL (8.5-10.1); CARBON DIOXIDE 27 mmol/L (21-32); CHLORIDE 106 mmol/L (98-107); CREATININE 1.6 mg/dL (0.6-1.3); GLUCOSE 196 mg/dL (74-106); MAGNESIUM 2.7 mg/dL (1.8-2.4); PHOSPHOROUS 3.7 mg/dL (2.5-4.9); SODIUM SERUM 143 mmol/L (136-145); TOTAL PROTEIN, SERUM 7.3 g/dL (6.4-8.2); UREA NITROGEN, BLOOD 34 mg/dL (7-18)
[2024-02-22 08:44] LABS: DIFFERENTIAL COMMENT 1
[2024-02-22] MEDS ORDERED: DEXTROSE 50% 50 ML DISP.SYRIN IV PRN (15:00)
[2024-02-22 15:31] VITALS: BP 141/57; TEMP 98; O2SAT 98
[2024-02-22] MEDS: BLOOD SUGAR DIAGNOSTIC 1 EACH STRIP VI SCH (16:44)
[2024-02-22] MEDS: INSULIN REGULAR, HUMAN 300 UNIT/3 ML VIAL SQ PRN (16:47)
[2024-02-22 19:45] VITALS: BP 101/51; TEMP 98.1; O2SAT 99
[2024-02-23 07:30] VITALS: BP 90/51; TEMP 98; O2SAT 96
[2024-02-23] MEDS: DIVALPROEX SPRINKLE 125 MG CAP.SPRINK PO SCH (14:50)
== END 2024-02-23 16:27 | DRG 885 ==
LOC: GPS 18:30
PROVIDERS: ADMIT Psychiatry & Neurology Psychiatry; ATTEND Internal Medicine
DX: F31.2 Bipolar disorder, current episode manic severe with psychotic features (principal); N17.9 Acute kidney failure, unspecified; G92.8 Other toxic encephalopathy; N39.0 Urinary tract infection, site not specified; E87.20 Acidosis, unspecified; I69.351 Hemiplegia and hemiparesis following cerebral infarction affecting right dominant side; D68.59 Other primary thrombophilia; F41.9 Anxiety disorder, unspecified; E03.9 Hypothyroidism, unspecified; E11.42 Type 2 diabetes mellitus with diabetic polyneuropathy; E11.22 Type 2 diabetes mellitus with diabetic chronic kidney disease; I12.9 Hypertensive chronic kidney disease with stage 1 through stage 4 chronic kidney disease, or unspecified chronic kidney disease; N18.2 Chronic kidney disease, stage 2 (mild); Z79.84 Long term (current) use of oral hypoglycemic drugs; F42.9 Obsessive-compulsive disorder, unspecified; T43.595A Adverse effect of other antipsychotics and neuroleptics, initial encounter; Y92.89 Other specified places as the place of occurrence of the external cause; E78.5 Hyperlipidemia, unspecified; M89.8X9 Other specified disorders of bone, unspecified site; Z79.890 Hormone replacement therapy; Z79.899 Other long term (current) drug therapy; Z74.09 Other reduced mobility
CPT/HCPCS: 36415; 70030-TC; 70450; 70551; 80164; 83735; 83970; 84100; 84155; 84165; 84443; 85025; 85651; 86038; 86140; 95819; J1815; J2060

== ENCOUNTER 2024-11-10 04:16 | Inpatient (IN) | payer MEDICARE, BC ==
[~2024-11-10] VITALS: Ht 154.9 cm; Wt 52.6 kg
[~2024-11-10 04:16] MED LIST changes: -CLON0.5T PO; -LITH300C2 PO; -OLAN5TAB3 PO; -RISP0.2515 PO
[2024-11-10 04:29] VITALS: BP 137/47; TEMP 97.6; O2SAT 100
[2024-11-10] MEDS ORDERED: MAG HYDROX/AL HYDROX/SIMETH 30 ML LIQUID UDC PO PRN (04:45)
[2024-11-10] MEDS ORDERED: ZOLPIDEM 5 MG TABLET PO PRN ×2 (04:45)
[2024-11-10] MEDS ORDERED: LORAZEPAM 0.5 MG TABLET PO PRN (04:45)
[2024-11-10] MEDS: BLOOD SUGAR DIAGNOSTIC 1 EACH STRIP VI ONE (05:10)
[2024-11-10] MEDS ORDERED: CLON0.5T4 PO (06:35)
[2024-11-10] MEDS ORDERED: FLUV50TA3 PO (06:35)
[2024-11-10] MEDS ORDERED: LITH150C PO (06:35)
[2024-11-10] MEDS ORDERED: ONDA4TAB11 PO (06:35)
[2024-11-10] MEDS ORDERED: FERR-68 PO (06:35)
[2024-11-10] MEDS ORDERED: RISP1TAB7 PO (06:35)
[2024-11-10] MEDS ORDERED: BENZ0.5T43 PO (06:35)
[2024-11-10] MEDS: LORAZEPAM 0.5 MG TABLET PO PRN (07:11)
[2024-11-10] MEDS ORDERED: CARB-53 PO (07:54)
[2024-11-10] MEDS ORDERED: METF-440 PO (08:00)
[2024-11-10] MEDS: BLOOD SUGAR DIAGNOSTIC 1 EACH STRIP VI SCH (11:30)
[2024-11-10] MEDS ORDERED: DEXTROSE 50% 50 ML DISP.SYRIN IV PRN (11:30)
[2024-11-10] MEDS: NICOTINE 21 MG/24HR PATCH TD SCH (14:05)
[2024-11-10] MEDS: DIVALPROEX 125 MG TABLET.DR PO SCH (14:05)
[2024-11-10 16:27] VITALS: BP 148/48; TEMP 97.9; O2SAT 98
[2024-11-10] MEDS: risperiDONE 1 MG/ML UDC GT SCH (17:39)
[2024-11-10] MEDS: INSULIN REGULAR, HUMAN 1000 UNIT/10 ML VIAL SQ PRN (18:06)
[2024-11-10 19:54] VITALS: BP 124/63; TEMP 98.5; O2SAT 98
[2024-11-10] MEDS: ATORVASTATIN 10 MG TABLET PO SCH (20:30)
[2024-11-10] MEDS: TEMAZEPAM 7.5 MG CAPSULE PO PRN (22:33)
[2024-11-11] MEDS: LEVOTHYROXINE SODIUM 75 MCG TABLET PO SCH (06:09)
[2024-11-11 07:35] LABS: BASOPHILS # (AUTO) 0.1 K/UL (0.0-0.2); BASOPHILS % (AUTO) 0.9 % (0.0-2.0); EOSINOPHILS # (AUTO) 0.2 K/uL (0.0-0.7); HEMOGLOBIN 10.9 g/dL (10.9-14.3); LYMPHOCYTES % (AUTO) 22.2 % (20.5-51.5); MEAN CORPUSCULAR HEMOGLOBIN 32.2 uug (24.7-32.8); MEAN CORPUSCULAR HGB CONC 34 g/dL (32.3-35.6); MEAN CORPUSCULAR VOLUME 94.8 fL (75.5-95.3); MONOCYTES # (AUTO) 0.9 K/uL (0.1-1.30); MONOCYTES % (AUTO) 10.1 % (0.0-11.0); NEUTROPHILS # (AUTO) 5.7 K/uL (1.8-8.9); NEUTROPHILS % (AUTO) 64.8 % (38.5-71.5); PLATELET COUNT (AUTO) 300 K/uL (179-408); RED BLOOD CELL COUNT(AUTO) 3.37 MIL/uL (3.63-4.92); RED CELL DISTRIBUTION WIDTH 14.1 % (12.3-17.7); WHITE BLOOD COUNT (AUTO) 8.8 K/uL (3.8-11.8)
[2024-11-11 07:47] VITALS: BP 148/73; TEMP 98; O2SAT 98
[2024-11-11 08:02] LABS: DIFFERENTIAL COMMENT 1
[2024-11-11 08:08] LABS: ALANINE AMINOTRANSFERASE 25 U/L (14-59); ALKALINE PHOSPHATASE 47 U/L (50-136); ASPARTATE AMINOTRANSFERASE 15 U/L (15-37); BILIRUBIN,TOTAL 0.3 mg/dL (0.2-1.0); CARBON DIOXIDE 23 mmol/L (21-32); CHLORIDE 108 mmol/L (98-107); CREATININE 1.7 mg/dL (0.6-1.3); GLUCOSE 217 mg/dL (74-106); MAGNESIUM 2.2 mg/dL (1.8-2.4); POTASSIUM 5.6 mmol/L (3.5-5.1); SODIUM SERUM 143 mmol/L (136-145); TOTAL PROTEIN, SERUM 7.1 g/dL (6.4-8.2); UREA NITROGEN, BLOOD 43 mg/dL (7-18)
[2024-11-11] MEDS: GLUCERNA SHAKE 237 ML CAN PO SCH (09:00)
[2024-11-11] MEDS: FERROUS SULFATE 325 MG TABEC PO SCH (09:16)
[2024-11-11] MEDS: ASCORBIC ACID 500 MG TABLET PO SCH (09:16)
[2024-11-11] MEDS: METOPROLOL TARTRATE 25 MG TABLET PO SCH (09:16)
[2024-11-11 10:11] LABS: THYROID STIMULATING HORMONE 3.453 mIU/mL (0.358-3.740)
[2024-11-11] MEDS: MAGNESIUM HYDROXIDE 30 ML LIQUID UDC PO PRN (11:58)
[2024-11-11] MEDS: CLONAZEPAM 0.5 MG TABLET PO SCH (13:02)
[2024-11-11] MEDS: DIVALPROEX 250 MG TABLET.DR PO SCH (13:02)
[2024-11-11] MEDS: ACETAMINOPHEN 325 MG TABLET PO PRN (13:02)
[2024-11-11] MEDS: SODIUM ZIRCONIUM CYCLOSILICATE 10 GM POWD.PACK PO ONE (13:02)
[2024-11-11] MEDS ORDERED: DIVALPROEX 125 MG TABLET.DR PO SCH (14:00)
[2024-11-11 14:38] LABS: CARBON DIOXIDE 27 mmol/L (21-32); CHLORIDE 105 mmol/L (98-107); CREATININE 1.5 mg/dL (0.6-1.3); GLUCOSE 149 mg/dL (74-106); POTASSIUM 5.7 mmol/L (3.5-5.1); SODIUM SERUM 144 mmol/L (136-145); UREA NITROGEN, BLOOD 43 mg/dL (7-18)
[2024-11-11 15:47] VITALS: BP 117/55; TEMP 98.2; O2SAT 98
[2024-11-11 20:00] VITALS: BP 136/64; TEMP 98; O2SAT 98
[2024-11-11] MEDS: risperiDONE 1 MG/ML UDC PO SCH (22:16)
[2024-11-11 22:19] LABS: IRON, SERUM 93 ug/dL (50-175)
[2024-11-11 23:31] LABS: FERRITIN 88 ng/mL (8-252)
[2024-11-12 06:34] LABS: BASOPHILS # (AUTO) 0.1 K/UL (0.0-0.2); BASOPHILS % (AUTO) 1.3 % (0.0-2.0); EOSINOPHILS # (AUTO) 0.2 K/uL (0.0-0.7); EOSINOPHILS % (AUTO) 3.4 % (0.0-7.0); HEMATOCRIT 31.8 % (31.2-41.9); HEMOGLOBIN 10.7 g/dL (10.9-14.3); LYMPHOCYTES # (AUTO) 1.8 K/uL (0.8-4.8); MEAN CORPUSCULAR HEMOGLOBIN 32.3 uug (24.7-32.8); MEAN CORPUSCULAR HGB CONC 34 g/dL (32.3-35.6); MEAN CORPUSCULAR VOLUME 96.6 fL (75.5-95.3); MONOCYTES # (AUTO) 0.8 K/uL (0.1-1.30); MONOCYTES % (AUTO) 11.7 % (0.0-11.0); NEUTROPHILS # (AUTO) 3.9 K/uL (1.8-8.9); NEUTROPHILS % (AUTO) 57.6 % (38.5-71.5); PLATELET COUNT (AUTO) 259 K/uL (179-408); RED CELL DISTRIBUTION WIDTH 13.9 % (12.3-17.7); WHITE BLOOD COUNT (AUTO) 6.8 K/uL (3.8-11.8)
[2024-11-12 06:48] LABS: ALANINE AMINOTRANSFERASE 21 U/L (14-59); ALBUMIN 3.6 g/dL (3.4-5.0); ALKALINE PHOSPHATASE 48 U/L (50-136); ASPARTATE AMINOTRANSFERASE 12 U/L (15-37); BILIRUBIN,TOTAL 0.4 mg/dL (0.2-1.0); CALCIUM 9.6 mg/dL (8.5-10.1); CARBON DIOXIDE 29 mmol/L (21-32); CHLORIDE 106 mmol/L (98-107); CREATINE KINASE, TOTAL 37 U/L (26-192); CREATININE 1.6 mg/dL (0.6-1.3); GLUCOSE 147 mg/dL (74-106); MAGNESIUM 3.5 mg/dL (1.8-2.4); PHOSPHOROUS 5.1 mg/dL (2.5-4.9); POTASSIUM 5.2 mmol/L (3.5-5.1); SODIUM SERUM 143 mmol/L (136-145); TOTAL PROTEIN, SERUM 6.7 g/dL (6.4-8.2); UREA NITROGEN, BLOOD 46 mg/dL (7-18)
[2024-11-12 07:20] LABS: DIFFERENTIAL COMMENT 1
[2024-11-12 07:39] VITALS: BP 107/57; TEMP 97.6; O2SAT 98
[2024-11-12] MEDS: SODIUM ZIRCONIUM CYCLOSILICATE 10 GM POWD.PACK PO ONE (10:34)
[2024-11-12 11:43] LABS: *BILIRUBIN,URIN NEGATIVE (NEGATIVE); *BLOOD, URINE NEGATIVE (NEGATIVE); *CLARITY,URINE CLEAR (CLEAR); *COLOR,URINE YELLOW (YELLOW); *KETONES,URINE NEGATIVE (NEGATIVE); *PROTEIN,URINE TRACE (NEGATIVE); *UROBILINOGEN,URINE 0.2 E.U./dl (NORMAL); LEUKOCYTE ESTERASE ,URINE NEGATIVE (NEGATIVE); NITRITE, URINE NEGATIVE (NEGATIVE); UGLUCOSE NEGATIVE (NEGATIVE)
[2024-11-12 11:59] LABS: SQUAMOUS EPITHELIAL CELL,UR FEW /HPF (NONE SEEN); WBC,URINE 0-3 /HPF (0-3)
[2024-11-12 16:00] VITALS: BP 98/50; TEMP 97.8; O2SAT 97
[2024-11-12 16:09] LABS: *CREATININE,URINE 110.3 mg/dL (30-125); *URINE TOTAL PROTEIN RANDOM 26.3 mg/dL (<150/24HR)
[2024-11-12] MEDS: NEPRO (VANILLA) 237 ML CAN PO SCH (17:46)
[2024-11-12 20:02] VITALS: BP 110/62; TEMP 97.3; O2SAT 98
[2024-11-13 07:29] VITALS: BP 110/62; TEMP 98.2; O2SAT 98
[2024-11-13 08:27] LABS: BASOPHILS # (AUTO) 0.1 K/UL (0.0-0.2); BASOPHILS % (AUTO) 0.9 % (0.0-2.0); EOSINOPHILS # (AUTO) 0.2 K/uL (0.0-0.7); HEMATOCRIT 29.2 % (31.2-41.9); HEMOGLOBIN 9.9 g/dL (10.9-14.3); LYMPHOCYTES # (AUTO) 1.9 K/uL (0.8-4.8); LYMPHOCYTES % (AUTO) 28.4 % (20.5-51.5); MEAN CORPUSCULAR HEMOGLOBIN 32.6 uug (24.7-32.8); MEAN CORPUSCULAR HGB CONC 34 g/dL (32.3-35.6); MEAN CORPUSCULAR VOLUME 96.3 fL (75.5-95.3); MONOCYTES # (AUTO) 0.9 K/uL (0.1-1.30); MONOCYTES % (AUTO) 12.8 % (0.0-11.0); NEUTROPHILS # (AUTO) 3.7 K/uL (1.8-8.9); NEUTROPHILS % (AUTO) 54.9 % (38.5-71.5); PLATELET COUNT (AUTO) 242 K/uL (179-408); RED BLOOD CELL COUNT(AUTO) 3.03 MIL/uL (3.63-4.92); RED CELL DISTRIBUTION WIDTH 14.1 % (12.3-17.7); WHITE BLOOD COUNT (AUTO) 6.7 K/uL (3.8-11.8)
[2024-11-13 08:40] LABS: ALANINE AMINOTRANSFERASE 20 U/L (14-59); ALBUMIN 3.3 g/dL (3.4-5.0); ALKALINE PHOSPHATASE 40 U/L (50-136); ASPARTATE AMINOTRANSFERASE 11 U/L (15-37); BILIRUBIN,TOTAL 0.3 mg/dL (0.2-1.0); CALCIUM 8.8 mg/dL (8.5-10.1); CARBON DIOXIDE 31 mmol/L (21-32); CHLORIDE 105 mmol/L (98-107); CREATININE 1.7 mg/dL (0.6-1.3); GLUCOSE 119 mg/dL (74-106); MAGNESIUM 3.7 mg/dL (1.8-2.4); PHOSPHOROUS 5.3 mg/dL (2.5-4.9); POTASSIUM 5.3 mmol/L (3.5-5.1); SODIUM SERUM 143 mmol/L (136-145); TOTAL PROTEIN, SERUM 6.1 g/dL (6.4-8.2); UREA NITROGEN, BLOOD 52 mg/dL (7-18)
[2024-11-13 08:42] LABS: DIFFERENTIAL COMMENT 1
[2024-11-13] MEDS: SODIUM ZIRCONIUM CYCLOSILICATE 10 GM POWD.PACK PO ONE (12:05)
[2024-11-13 16:34] VITALS: BP 103/53; TEMP 98; O2SAT 99
[2024-11-13 20:00] VITALS: BP 157/69; TEMP 98; O2SAT 96
[2024-11-13] MEDS: risperiDONE 1 MG TABLET PO SCH (20:30)
[2024-11-14 07:09] LABS: PTH, INTACT 32 pg/mL (15-65)
[2024-11-14 07:57] LABS: BASOPHILS # (AUTO) 0.1 K/UL (0.0-0.2); BASOPHILS % (AUTO) 0.8 % (0.0-2.0); EOSINOPHILS # (AUTO) 0.2 K/uL (0.0-0.7); EOSINOPHILS % (AUTO) 2.9 % (0.0-7.0); HEMATOCRIT 30.2 % (31.2-41.9); HEMOGLOBIN 10.1 g/dL (10.9-14.3); LYMPHOCYTES # (AUTO) 1.8 K/uL (0.8-4.8); LYMPHOCYTES % (AUTO) 24.6 % (20.5-51.5); MEAN CORPUSCULAR HEMOGLOBIN 32.2 uug (24.7-32.8); MEAN CORPUSCULAR HGB CONC 34 g/dL (32.3-35.6); MEAN CORPUSCULAR VOLUME 95.9 fL (75.5-95.3); MONOCYTES # (AUTO) 0.8 K/uL (0.1-1.30); MONOCYTES % (AUTO) 10.7 % (0.0-11.0); NEUTROPHILS # (AUTO) 4.5 K/uL (1.8-8.9); PLATELET COUNT (AUTO) 251 K/uL (179-408); RED BLOOD CELL COUNT(AUTO) 3.15 MIL/uL (3.63-4.92); RED CELL DISTRIBUTION WIDTH 13.9 % (12.3-17.7); WHITE BLOOD COUNT (AUTO) 7.4 K/uL (3.8-11.8)
[2024-11-14 08:01] LABS: DIFFERENTIAL COMMENT 1
[2024-11-14 08:04] VITALS: BP 120/58; TEMP 97.9; O2SAT 99
[2024-11-14 08:14] LABS: ALANINE AMINOTRANSFERASE 19 U/L (14-59); ALBUMIN 3.4 g/dL (3.4-5.0); ALKALINE PHOSPHATASE 45 U/L (50-136); ASPARTATE AMINOTRANSFERASE 14 U/L (15-37); BILIRUBIN,TOTAL 0.4 mg/dL (0.2-1.0); CALCIUM 8.5 mg/dL (8.5-10.1); CARBON DIOXIDE 27 mmol/L (21-32); CHLORIDE 106 mmol/L (98-107); CREATININE 1.6 mg/dL (0.6-1.3); GLUCOSE 207 mg/dL (74-106); MAGNESIUM 3.2 mg/dL (1.8-2.4); PHOSPHOROUS 5.1 mg/dL (2.5-4.9); POTASSIUM 4.7 mmol/L (3.5-5.1); SODIUM SERUM 142 mmol/L (136-145); TOTAL PROTEIN, SERUM 6.2 g/dL (6.4-8.2); UREA NITROGEN, BLOOD 52 mg/dL (7-18)
[2024-11-14] MEDS: risperiDONE 0.5 MG TABLET PO SCH (08:28)
[2024-11-14] MEDS ORDERED: risperiDONE 1 MG/ML UDC PO SCH (09:00)
[2024-11-14 16:17] VITALS: BP 105/55; TEMP 98.1; O2SAT 95
[2024-11-14 20:00] VITALS: BP 127/50; TEMP 97.7; O2SAT 100
[2024-11-15 07:47] VITALS: BP 105/66; TEMP 98.2; O2SAT 99
[2024-11-15 15:15] VITALS: BP 107/54; TEMP 98.2; O2SAT 98
[2024-11-15] MEDS ORDERED: CLON0.5T4 PO (18:43)
[2024-11-15] MEDS ORDERED: TEMA7.5C PO (18:43)
[2024-11-15 20:00] VITALS: BP 115/45; TEMP 98; O2SAT 99
== END 2024-11-15 19:50 | DRG 885 ==
LOC: GPS 04:16
PROVIDERS: ADMIT Psychiatry & Neurology Psychiatry; ATTEND Nurse Practitioner Family
DX: F29 Unspecified psychosis not due to a substance or known physiological condition (principal); N18.32 Chronic kidney disease, stage 3b; N17.9 Acute kidney failure, unspecified; E44.1 Mild protein-calorie malnutrition; F31.9 Bipolar disorder, unspecified; E88.09 Other disorders of plasma-protein metabolism, not elsewhere classified; F17.211 Nicotine dependence, cigarettes, in remission; M89.8X9 Other specified disorders of bone, unspecified site; E87.5 Hyperkalemia; D63.1 Anemia in chronic kidney disease; E11.40 Type 2 diabetes mellitus with diabetic neuropathy, unspecified; I12.9 Hypertensive chronic kidney disease with stage 1 through stage 4 chronic kidney disease, or unspecified chronic kidney disease; E11.22 Type 2 diabetes mellitus with diabetic chronic kidney disease; E03.9 Hypothyroidism, unspecified; E78.5 Hyperlipidemia, unspecified; Z86.73 Personal history of transient ischemic attack (TIA), and cerebral infarction without residual deficits
CPT/HCPCS: 36415; 70030-TC; 76770; 80164; 82746; 83550; 83735; 83970; 84100; 84155; 84165; 84300; 84443; 85025; J1815; J3490